=== PATIENT | female | born 1965 | race Caucasian/White ===

== ENCOUNTER 2017-05-16 22:44 | Inpatient (IN) | payer MEDICARE, OTHER, BC ==
[2017-05-17] MEDS: ACETAMINOPHEN 325 MG TAB PO ×2 (00:57→16:38)
[2017-05-17 00:58] LABS: AUTOMATED NEUTROPHIL # 12.5 TH/MM3 (1.8-7.7); BASOPHIL # 0.2 TH/MM3 (0-0.2); BASOPHIL % 0.8 % (0.0-2.0); EOSINOPHIL # 0.1 TH/MM3 (0-0.4); EOSINOPHIL % 0.4 % (0.0-4.0); HEMOGLOBIN 14.5 GM/DL (11.6-15.3); LYMPH % 30.1 % (9.0-44.0); LYMPHOCYTE # 6.3 TH/MM3 (1.0-4.8); MEAN CELL VOLUME 90.3 FL (80.0-100.0); MEAN CORPUSCULAR HEMOGLOBIN 29.8 PG (27.0-34.0); MEAN PLATELET VOLUME 8.6 FL (7.0-11.0); MONO % 9.1 % (0.0-8.0); MONOCYTE # 1.9 TH/MM3 (0-0.9); NEUT % 59.6 % (16.0-70.0); PLATELET COUNT 301 TH/MM3 (150-450); RED BLOOD COUNT 4.88 MIL/MM3 (4.00-5.30); RED CELL DISTRIBUTION WIDTH 14.5 % (11.6-17.2)
[2017-05-17 01:01] LABS: HEMO FLAGS AUTO DIFF
[2017-05-17 01:19] LABS: ALKALINE PHOSPHATASE 62 U/L (45-117); TOTAL BILIRUBIN ADULT 0.6 MG/DL (0.2-1.0)
[2017-05-17 01:26] LABS: BANDS 2 % (0-6); LYMPHOCYTES 27 % (9-44); MONOCYTES 8 % (0-8); NEUTROPHIL # MANUAL DIFF 13.7 TH/MM3 (1.8-7.7); POLYS (SEG NEUTROPHILS) 63 % (16-70); SCAN/DIFF FINAL DIFF MANUAL; WBC DIFF SAMPLE 100
[2017-05-17 01:28] LABS: PLATELET ESTIMATE SMEAR NORMAL (NORMAL); PLATELET MORPHOLOGY NORMAL (NORMAL)
[2017-05-17 02:57] LABS: ALBUMIN 4.3 GM/DL (3.4-5.0); ALT (GPT) 54 U/L (10-53); ANION GAP 12 MEQ/L (5-15); AST (GOT) 32 U/L (15-37); BICARBONATE 19.5 MEQ/L (21.0-32.0); BLOOD UREA NITROGEN 13 MG/DL (7-18); CALCIUM 10.1 MG/DL (8.5-10.1); CHLORIDE 110 MEQ/L (98-107); CREATININE 1.16 MG/DL (0.50-1.00); GLOMERULAR FILTRATION RATE 49 ML/MIN (>89); GLUCOSE,RANDOM 124 MG/DL (74-106); POTASSIUM 3.7 MEQ/L (3.5-5.1); SODIUM (NA) 141 MEQ/L (136-145)
[2017-05-17 02:58] LABS: ALCOHOL LESS THAN 3 MG/DL (0-5)
[2017-05-17 08:39] LABS: AUTOMATED NEUTROPHIL # 7.5 TH/MM3 (1.8-7.7); BASOPHIL # 0.1 TH/MM3 (0-0.2); BASOPHIL % 0.8 % (0.0-2.0); EOSINOPHIL # 0.1 TH/MM3 (0-0.4); EOSINOPHIL % 0.8 % (0.0-4.0); HEMOGLOBIN 14.3 GM/DL (11.6-15.3); LYMPH % 37.2 % (9.0-44.0); LYMPHOCYTE # 5.6 TH/MM3 (1.0-4.8); MEAN CELL VOLUME 90.4 FL (80.0-100.0); MEAN CORPUSCULAR HEMOGLOBIN 30.9 PG (27.0-34.0); MEAN CORPUSCULAR HGB CONC 34.2 % (32.0-36.0); MEAN PLATELET VOLUME 8.2 FL (7.0-11.0); MONOCYTE # 1.7 TH/MM3 (0-0.9); NEUT % 50.2 % (16.0-70.0); PLATELET COUNT 284 TH/MM3 (150-450); RED BLOOD COUNT 4.64 MIL/MM3 (4.00-5.30); RED CELL DISTRIBUTION WIDTH 14.3 % (11.6-17.2)
[2017-05-17 08:47] LABS: HEMO FLAGS AUTO DIFF
[2017-05-17 09:33] LABS: SCAN/DIFF AUTO DIFF CONFIRMED
[2017-05-17 13:05] LABS: BACTERIA, URINE RARE /hpf; BILIRUBIN, URINE NEG (NEG); BLOOD, URINE NEG (NEG); COMMENT (UR) CULT NOT INDICATED; CULTURE IF INDICATED CULT NOT INDICATED; GLUCOSE,URINE NEG (NEG); KETONE, URINE NEG (NEG); NITRITE,URINE NEG (NEG); SQUAMOUS EPITHELIAL CELL URINE 1 /hpf (0-5); URINE COLOR LIGHT-YELLOW (YELLW/STRAW); URINE LEUKOCYTE ESTERASE NEG (NEG)
[2017-05-17 13:09] LABS: AMPHETAMINE, URINE NEG (NEG); BARBITURATES, URINE NEG (NEG); BENZODIAZEPINE,URINE NEG (NEG); CANNABINOIDS, URINE NEG (NEG); COCAINE, URINE NEG (NEG)
[2017-05-17] MEDS ORDERED: MAGNESIUM HYDROXIDE SUSP 30 ML CUP PO (20:45)
[2017-05-17] MEDS: LORazepam 2 MG/ML VIAL IM (21:27)
[2017-05-18] MEDS: OLANZapine 10 MG TAB PO ×3 (09:47→15:33)
[2017-05-18] MEDS: ALUMINUM/MAGNESIUM/SIMETH 30 ML CUP PO (14:39)
[2017-05-18] MEDS: ZIPRASIDONE HCL 20 MG CAP PO ×2 (15:32→20:24)
[2017-05-18] MEDS: traZODone HCL 50 MG TAB PO (22:04)
[2017-05-19] MEDS: LORazepam 1 MG TAB PO (06:31)
[2017-05-19] MEDS: ZIPRASIDONE HCL 20 MG CAP PO ×2 (09:00→20:16)
[2017-05-19 09:21] LABS: HEMOGLOBIN A1C 6.6 % (4.3-6.0); HEMOGLOBIN A1a 1.2 %; HEMOGLOBIN A1b 1.4 %; HEMOGLOBIN F 1.1 %; HEMOGLOBIN LA1C 2.2 %; HEMOGLOBIN P3 5.4 %
[2017-05-19 10:39] LABS: HEMATOCRIT 39.6 % (35.0-46.0); MEAN CELL VOLUME 92.6 FL (80.0-100.0); MEAN CORPUSCULAR HEMOGLOBIN 30.3 PG (27.0-34.0); MEAN CORPUSCULAR HGB CONC 32.7 % (32.0-36.0); MEAN PLATELET VOLUME 8.7 FL (7.0-11.0); PLATELET COUNT 229 TH/MM3 (150-450); RED BLOOD COUNT 4.28 MIL/MM3 (4.00-5.30); RED CELL DISTRIBUTION WIDTH 14.9 % (11.6-17.2); REVIEW FLAG FINAL; WHITE BLOOD COUNT 10.6 TH/MM3 (4.0-11.0)
[2017-05-19] MEDS: traZODone HCL 50 MG TAB PO (21:51)
[2017-05-20] MEDS: RESP: ALBUTEROL 2.5 MG/IPRATROPIUM 0.5 MG NEB (SCH) NEB ×2 (08:00→09:45)
[2017-05-20] MEDS: LORazepam 1 MG TAB PO (08:30)
[2017-05-20] MEDS: ZIPRASIDONE HCL 20 MG CAP PO ×2 (09:03→20:07)
[2017-05-20] MEDS ORDERED: hydrOXYzine HCL 50 MG TAB PO (12:45)
[2017-05-20] MEDS ORDERED: RESP: ALBUTEROL 2.5 MG/IPRATROPIUM 0.5 MG NEB (PRN) NEB (13:45)
[2017-05-20] MEDS: ACETAMINOPHEN 325 MG TAB PO (15:42)
[2017-05-20] MEDS: traZODone HCL 50 MG TAB PO (20:07)
[2017-05-21] MEDS: ALUMINUM/MAGNESIUM/SIMETH 30 ML CUP PO (01:41)
[2017-05-21] MEDS: ACETAMINOPHEN 325 MG TAB PO (03:34)
[2017-05-21] MEDS: ZIPRASIDONE HCL 20 MG CAP PO ×2 (08:26→17:41)
[2017-05-21] MEDS ORDERED: BENZTROPINE MESYLATE 2 MG/2 ML VIAL IM (16:00)
[2017-05-21] MEDS ORDERED: BENZTROPINE MESYLATE 1 MG TAB PO (16:00)
[2017-05-21] MEDS: traZODone HCL 50 MG TAB PO (20:04)
[2017-05-22] MEDS: ALUMINUM/MAGNESIUM/SIMETH 30 ML CUP PO ×2 (04:31→23:09)
[2017-05-22] MEDS: ZIPRASIDONE HCL 20 MG CAP PO (08:40)
[2017-05-22] MEDS: ZIPRASIDONE HCL 60 MG CAP PO (18:15)
[2017-05-22] MEDS: hydrOXYzine HCL 50 MG TAB PO (20:37)
[2017-05-23] MEDS: ACETAMINOPHEN 325 MG TAB PO ×2 (00:32→06:39)
[2017-05-23] MEDS: LORazepam 1 MG TAB PO ×2 (02:53→20:06)
[2017-05-23] MEDS: metFORMIN HCL 500 MG TAB PO (08:02)
[2017-05-23] MEDS: ZIPRASIDONE HCL 60 MG CAP PO (08:03)
[2017-05-23 09:45] LABS: ALT (GPT) 62 U/L (10-53)
[2017-05-23 09:48] LABS: ALKALINE PHOSPHATASE 62 U/L (45-117); TOTAL BILIRUBIN ADULT 0.5 MG/DL (0.2-1.0); TOTAL PROTEIN 7.6 GM/DL (6.4-8.2)
[2017-05-23 09:57] LABS: ANION GAP 10 MEQ/L (5-15); AST (GOT) 43 U/L (15-37); BICARBONATE 18.7 MEQ/L (21.0-32.0); BLOOD UREA NITROGEN 11 MG/DL (7-18); CALCIUM 9.9 MG/DL (8.5-10.1); CHLORIDE 108 MEQ/L (98-107); CREATININE 0.94 MG/DL (0.50-1.00); GLOMERULAR FILTRATION RATE 63 ML/MIN (>89); GLUCOSE,RANDOM 141 MG/DL (74-106); POTASSIUM 4.2 MEQ/L (3.5-5.1); SODIUM (NA) 137 MEQ/L (136-145)
[2017-05-23] MEDS: ALUMINUM/MAGNESIUM/SIMETH 30 ML CUP PO (13:58)
[2017-05-23] MEDS ORDERED: ZIPRASIDONE MESYLATE 20 MG VIAL IM (14:45)
[2017-05-23] MEDS: ZIPRASIDONE HCL 80 MG CAP PO (17:48)
[2017-05-23] MEDS: ZOLPIDEM TARTRATE 5 MG TAB PO (20:06)
[2017-05-24] MEDS: ACETAMINOPHEN 325 MG TAB PO ×3 (06:25→20:37)
[2017-05-24] MEDS: metFORMIN HCL 500 MG TAB PO (07:31)
[2017-05-24] MEDS: ZIPRASIDONE HCL 80 MG CAP PO ×2 (07:31→17:22)
[2017-05-24] MEDS: ARTIFICIAL TEARS OPTH SOLN 15 ML BTL EACH EYE ×2 (07:32→19:49)
[2017-05-24 14:45] LABS: FREE T4 1.18 NG/DL (0.76-1.46)
[2017-05-24] MEDS ORDERED: ZIPRASIDONE HCL 80 MG CAP PO (18:00)
[2017-05-24] MEDS: LORazepam 1 MG TAB PO (20:37)
[2017-05-24] MEDS: hydrOXYzine HCL 50 MG TAB PO (20:37)
[2017-05-25] MEDS: ACETAMINOPHEN 325 MG TAB PO ×2 (02:34→23:54)
[2017-05-25] MEDS: ARTIFICIAL TEARS OPTH SOLN 15 ML BTL EACH EYE ×2 (03:50→10:00)
[2017-05-25] MEDS: ZIPRASIDONE HCL 80 MG CAP PO ×2 (07:57→17:00)
[2017-05-25] MEDS: metFORMIN HCL 500 MG TAB PO (07:58)
[2017-05-25] MEDS: ZIPRASIDONE HCL 20 MG CAP PO (16:59)
[2017-05-25] MEDS: LORazepam 1 MG TAB PO (20:11)
[2017-05-25] MEDS: ZOLPIDEM TARTRATE 5 MG TAB PO (20:12)
[2017-05-26] MEDS: ACETAMINOPHEN 325 MG TAB PO (05:36)
[2017-05-26] MEDS: ZIPRASIDONE HCL 20 MG CAP PO ×2 (09:34→18:08)
[2017-05-26] MEDS: ZIPRASIDONE HCL 80 MG CAP PO ×2 (09:34→18:08)
[2017-05-26] MEDS: hydrOXYzine HCL 50 MG TAB PO (09:35)
[2017-05-26] MEDS: metFORMIN HCL 500 MG TAB PO (09:35)
[2017-05-26] MEDS: ARTIFICIAL TEARS OPTH SOLN 15 ML BTL EACH EYE (18:08)
[2017-05-26] MEDS: ZOLPIDEM TARTRATE 5 MG TAB PO (21:28)
[2017-05-27] MEDS: ACETAMINOPHEN 325 MG TAB PO ×2 (00:10→20:17)
[2017-05-27] MEDS: LORazepam 1 MG TAB PO (01:36)
[2017-05-27] MEDS: metFORMIN HCL 500 MG TAB PO (08:00)
[2017-05-27] MEDS: ZIPRASIDONE HCL 20 MG CAP PO (08:00)
[2017-05-27] MEDS: ZIPRASIDONE HCL 80 MG CAP PO (08:00)
[2017-05-27] MEDS: ZIPRASIDONE HCL 60 MG CAP PO (17:23)
[2017-05-27] MEDS: ARTIFICIAL TEARS OPTH SOLN 15 ML BTL EACH EYE (20:16)
[2017-05-27] MEDS: ZOLPIDEM TARTRATE 10 MG TAB PO (20:17)
[2017-05-28] MEDS: ZIPRASIDONE HCL 60 MG CAP PO ×2 (08:07→17:02)
[2017-05-28] MEDS: metFORMIN HCL 500 MG TAB PO (08:07)
[2017-05-28] MEDS: ACETAMINOPHEN 325 MG TAB PO (08:08)
[2017-05-28] MEDS: ZOLPIDEM TARTRATE 10 MG TAB PO (21:15)
[2017-05-28] MEDS: ARTIFICIAL TEARS OPTH SOLN 15 ML BTL EACH EYE (21:16)
[2017-05-29] MEDS: ACETAMINOPHEN 325 MG TAB PO (03:29)
[2017-05-29] MEDS: metFORMIN HCL 500 MG TAB PO (09:09)
[2017-05-29] MEDS: ZIPRASIDONE HCL 60 MG CAP PO (09:10)
[2017-05-29] MEDS: ARTIFICIAL TEARS OPTH SOLN 15 ML BTL EACH EYE (09:14)
== END 2017-05-29 14:40 | disposition home or self-care (01) | DRG 885 ==
LOC: NEPD 22:44 → NEDA 05-17 20:35 → H270 05-17 22:06
DX: F20.0 Paranoid schizophrenia (principal); E11.9 Type 2 diabetes mellitus without complications; J44.9 Chronic obstructive pulmonary disease, unspecified; G47.00 Insomnia, unspecified; Z91.14 Patient's other noncompliance with medication regimen; Z86.19 Personal history of other infectious and parasitic diseases; Z72.0 Tobacco use
CPT/HCPCS: 71045; 80053; 80307; 81001; 83036; 84439; 84443; 85007; 85025; 85027; 93005; 99285

== ENCOUNTER 2017-06-01 14:50 | Inpatient (IN) | payer MEDICARE ==
[~2017-06-01] VITALS: Ht 167.6 cm; Wt 105.3 kg
[~2017-06-01 14:50] MED LIST: AMBI10TA PO; GEOD60CA PO; METF500 PO
[2017-06-01 15:05] VITALS: BP 133/64; TEMP 98.8
--- NOTE | 2017-06-01 15:31 | PD ---
HPI Chief Complaint: Psychiatric Symptoms Time Seen by Provider: 15:11 Travel History International Travel<30 days: No Contact w/Intl Traveler<30days: No Traveled to known affect area: No History of Present Illness HPI 51-year-old female presents to the emergency department with her brother for psychiatric evaluation. Patient was recently admitted to the hospital. She has a history of schizophrenia. She was discharged prescription for Geodon. According to her brother, she is not doing well. The patient appears psychotic to my exam. She will not allow anyone to touch her and declines labs. She is alert and oriented to person, place, time. However, she asked bizarre during my exam. Her brother is concerned for her. Moderate severity. PFSH Past Medical History Autoimmune Disease: No Cancer: No Diabetes: No Diminished Hearing: No Gastrointestinal Disorders: Yes (HEP C) Heparin Induced Thrombocytopen: No Immune Disorder: No Implanted Vascular Access Dvce: No Psychiatric: Yes Reproductive: No Immunizations Current: No Sickle Cell Disease: No Thyroid Disease: No ?: Not Past Surgical History AICD: No Arteriovenous Shunt: No Insulin Pump: No Joint Replacement: No Pacemaker: No Social History Alcohol Use: Yes Tobacco Use: Yes Substance Use: No Allergies-Medications (Allergen,Severity, Reaction): Coded Allergies: No Known Allergies (Unverified , 05/17/17) Reported Meds & Prescriptions Reported Meds & Active Scripts Active Glucophage (Metformin HCl) 500 Mg Tab 500 Mg PO DAILY 15 Days Ambien (Zolpidem Tartrate) 10 Mg Tab 10 Mg PO HS PRN 15 Days Geodon (Ziprasidone) 60 Mg Cap 120 Mg PO BIDPC 15 Days Review of Systems Except as stated in HPI: all other systems reviewed are Neg Physical Exam Narrative GENERAL: Well-nourished, well-developed female patient, ambulatory. Afebrile. SKIN: Focused skin assessment warm/dry. HEAD: Normocephalic. Atraumatic EYES: No scleral icterus. No injection or drainage. NECK: Supple, trachea midline. No JVD or lymphadenopathy. CARDIOVASCULAR: Regular rate and rhythm without murmurs, gallops, or rubs. RESPIRATORY: Breath sounds equal bilaterally. No accessory muscle use. Lungs sounds are clear to auscultation. GASTROINTESTINAL: Patient refuses to allow me assess her abdomen.. MUSCULOSKELETAL: No cyanosis, or edema. PSYCHIATRIC: Patient acts bizarre and psychotic. Data Data Last Documented VS Vital Signs Date Time Temp Pulse Resp B/P (MAP) Pulse Ox O2 Delivery O2 Flow Rate FiO2 06/01/17 15:05 98.8 133/64 (87) Orders Orders Psych Screen (06/01/17 15:24) MDM Medical Decision Making Medical Screen Exam Complete: Yes Emergency Medical Condition: Yes Medical Record Reviewed: Yes Differential Diagnosis schizophrenia vs. bipolar d/o vs. anxiety vs. depression Narrative Course 51 year old female presents to the emergency department for psychiatric evaluation. Patient declines labs. I reviewed the most recent labs from . CBC showed no acute abnormality. CMP on 05/23/17 showed slightly elevated LFTs. Patient is medically cleared for psychiatric screening and evaluation. Diagnosis Primary Impression: Schizophrenia Qualified Codes: F20.9 - Schizophrenia, unspecified Condition: Stable BretJenny TESSA Jun 01, 2017 15:31
[2017-06-01 20:29] VITALS: BP 130/75; PULSE 89; RESP 16; TEMP 98.1; O2SAT 95
[2017-06-02] MEDS ORDERED: metFORMIN HCL 500 MG TAB PO ONE (07:30)
[2017-06-02] MEDS ORDERED: ZIPRASIDONE HCL 60 MG CAP PO ONE (07:30)
--- NOTE | 2017-06-02 10:48 | PD ---
History of Present Illness Chief Complaint: Psychiatric Symptoms Time Seen by Provider: 10:30 Travel History International Travel<30 Days: No Contact w/Intl Traveler<30days: No Known affected area: No Legal Status Legal Status: Salas Act Salas Act Signed By: Ana ZARATE History of Present Illness: History of Present Illness HPI 51-year-old female with history of schizoaffective disorder who presents to the emergency department accompanied by her brother for psychiatric evaluation. The brother reports that since her discharge from our inpatient psychiatric unit on May 29 she has been unstable at home with not sleeping, restless, delusional and combative. Patient was discharged from our inpatient psychiatric unit on May 29 to the care of her brother and her mother. While in the ED the patient is described as appearing psychotic as well as paranoid and did not allow anyone to touch her or to draw her labs. The patient was monitored in J pod. She was up at 3:00 in the morning and asked her nursing report appeared paranoid and was argumentative with staff claiming that the objects inside the nurse's station belonged to her. Patient is seen. Electronic medical record reviewed. Nursing reported is reviewed. The patient is alert, oriented. She demonstrates disorganized thoughts. She states that her problems began when she got off the Clozapine. She then begins to talk about the doors here on the unit, people coming in and out of the unit, feeling sweaty, talking about her metformin. She is intrusive and approaches staff constantly to ask about her discharge from [facility]. I spoke to both the brother and the mother at [phone]. The brother reports that since her discharge they have been unable to manage her behavior at home because she has not been sleeping well, she has been combative, she has been delusional as per their report. The patient's mother and her brother at this time believe that they are unable to manage her behaviors at home and are requesting hospitalization. They are unwilling to pick her up from the hospital at this time. PFSH Past Medical History Autoimmune Disease: No Cancer: No Diabetes: No Diminished Hearing: No Gastrointestinal Disorders: Yes (HEP C) Heparin Induced Thrombocytopen: No Immune Disorder: No Implanted Vascular Access Dvce: No Psychiatric: Yes Reproductive: No Immunizations Current: No Sickle Cell Disease: No Thyroid Disease: No ?: Not Past Surgical History AICD: No Arteriovenous Shunt: No Insulin Pump: No Joint Replacement: No Pacemaker: No Psychiatric History Psychiatric History Hx Psychiatric Treatment: PATIENT WAS LAST ADMITTED TO [facility] FROM 05/17/17 TO 05/29/17 FOR PSYCHOSIS NOS. HX: SCHIZOPHRENIA has had previous admissions here to [facility] History of Inpatient Treatment: Yes Guns or firearms in home: No Social History Single female who lives with her mother and her brother. She is on disability. Hx Alcohol Use: Yes Hx Tobacco Use: Yes Hx Substance Use: No Hx of Substance Use Treatment: No Allergies-Medications (Allergen,Severity, Reaction): Coded Allergies: No Known Allergies (Unverified , 05/17/17) Reported Meds & Prescriptions Reported Meds & Active Scripts Active Glucophage (Metformin HCl) 500 Mg Tab 500 Mg PO DAILY 15 Days Ambien (Zolpidem Tartrate) 10 Mg Tab 10 Mg PO HS PRN 15 Days Geodon (Ziprasidone) 60 Mg Cap 120 Mg PO BIDPC 15 Days Review of Systems ROS Limitations: Uncooperative Mental Status Examination Appearance: Appropriate Consciousness: Alert Orientation: Person, Place, Situation Motor Activity: Normal gait Speech: Other (perseverates on same subject matter) Language: Adequate Fund of Knowledge: Adequate Attention and Concentration: Easily Distracted Memory: Impaired Mood: Anxious, Other (labile) Affect: Labile Thought Process & Associations: Loose associations Thought Content: Other (suspicious of staff) Hallucination Type: None Delusion Type: Paranoid Suicidal Ideation: No Suicidal Plan: No Suicidal Intention: No Homicidal Ideation: No Homicidal Plan: No Homicidal Intention: No Insight: Poor Judgment: Poor MDM Medical Decision Making Medical Record Reviewed: Yes Assessment/Plan 51-year-old female with history of schizoaffective disorder who initially presented to the hospital on a voluntary basis brought in by her brother. The family reported that since her discharge from our inpatient psychiatric unit on May 29 she has been unstable mentally, has not been sleeping, has been delusional, and has been combative. The family at this time is unwilling to take the patient home as they feel that she is not stable. The case is consulted with Dr. Ervin and no who recommends inpatient hospitalization for further evaluation, stability, medication adjustment. Patient statuses changed to involuntary. Orders Orders Psych Screen (06/01/17 15:24) Diet Regular Basic (06/02/17 Breakfast) Metformin (Glucophage) (06/02/17 07:30) Ziprasidone (Geodon) (06/02/17 07:30) Diet Regular Basic (06/02/17 Lunch) Results Vital Signs Date Time Temp Pulse Resp B/P (MAP) Pulse Ox O2 Delivery O2 Flow Rate FiO2 06/01/17 20:29 98.1 89 16 130/75 (93) 95 Room Air 06/01/17 15:05 98.8 133/64 (87) Diagnosis Primary Impression: Other schizoaffective disorders Admitting Information Admitting Physician Requests: Admit Condition: Stable NewmanCatia can Vlad ZARATE Jun 02, 2017 10:48
[2017-06-02] MEDS ORDERED: ALUMINUM/MAGNESIUM/SIMETH 30 ML CUP PO PRN (13:30)
[2017-06-02] MEDS ORDERED: MAGNESIUM HYDROXIDE SUSP 30 ML CUP PO PRN (13:30)
[2017-06-02 15:36] VITALS: BP 120/61; PULSE 75; RESP 18; O2SAT 93
[2017-06-02 17:01] VITALS: TEMP 97.3
[2017-06-02 17:02] VITALS: BP 115/77; PULSE 82; RESP 18; TEMP 97.3; O2SAT 98
[2017-06-02] MEDS: ZIPRASIDONE HCL 60 MG CAP PO SCH (18:00)
[2017-06-03] MEDS: ACETAMINOPHEN 325 MG TAB PO PRN (00:02)
[2017-06-03 05:54] VITALS: BP 126/77; PULSE 76; RESP 17; TEMP 97.8; O2SAT 98
[2017-06-03] MEDS: ZIPRASIDONE HCL 60 MG CAP PO SCH ×2 (08:10→17:51)
[2017-06-03] MEDS: metFORMIN HCL 500 MG TAB PO SCH (09:00)
--- NOTE | 2017-06-03 14:13 | HHI.HP ---
Provisional Diagnosis Admission Date Jun 02, 2017 at 13:22 [place] I. 1. Other schizoaffective disorder [place] II. Deferred Certification of Person's Competence To Provide Express and Informed Consent I have personally examined Shanique Gar , a person being served at [facility] on, Jun 03, 2017 14:13. Express and informed consent means consent voluntarily given in writing, by a competent person, after sufficient explanation and disclosure of the subject matter involved to enable the person to make a knowing and willful decision without any element of force, fraud, deceit, duress, or other form of constraint or coercion. This person is 18 years of age or older, is not now known to be incompetent to consent to treatment with a guardian advocate, and does not have a health care surrogate or proxy currently making medical treatment decisions. I have found this person to be one of the following: [x] Competent to provide express and informed consent, as defined above, for voluntary admission to this facility and is competent to provide express and informed consent for treatment. He/she has the consistent capacity to make well reasoned, willful, and knowing decisions concerning his or her medical or mental health treatment. The person fully and consistently understands the purpose of the admission for examination/placement and is fully capable of personally exercising all rights [place] Incompetent to provide express and informed consent to voluntary admission, and this is incompetent to provide express and informed consent to treatment. The person must be transferred to involuntary status and a petition for a guardian advocate filed with the Circuit Court. [] Refusing to provide express and informed consent to voluntary admission but is competent to provide express and informed consent for treatment. The person must be discharged or transferred to involuntary status. Form shall be completed within 24 hours of a person's arrival at the receiving facility and filed in the clinical record of each person: 1. Admitted on a voluntary basis 2. Permitted to provide express and informed consent to his/her own treatment 3. Allowed to transfer from involuntary to voluntary status 4. Prior to permitting a person to consent to his or her own treatment after having been previously found incompetent to consent to treatment. History of Present Illness Capacity: Has Capacity Psych Chief Complaint: "Me and my mom weren't getting along." HPI Ms. Gar is a 51-year-old female with a history of schizoaffective disorder, recently discharged from the inpatient psychiatric unit back to home. She was brought back to the emergency department on the for psychiatric evaluation. She was screened by the psychiatric nurse practitioner who obtained collateral information from patient's brother and mother. Electronic medical record reviewed. Patient seen and examined with nurse. Chart reviewed. Case discussed with nursing staff who reports patient has been somewhat oppositional and hostile toward nurse, although she has not been physically aggressive or assaultive. On my exam, patient is calm with a slightly irritable edge. She tells me "I'm completely normal." She says that she got into an argument with her mother upon returning home. She denies AVH. She denies SI or HI. Mood is somewhat dysphoric. No other depressive or hypomanic/manic symptoms. She does admit to poor sleep prior to admission. She does display some hostility toward nurse during our interview but keeps her behavior in check. No side effects from Geodon. No reported issues with medication nonadherence prior to admission. No physical complaints. Past psychiatric, family, chemical dependency and social history were obtained by Dr. Ribera in his H&P from 05/18, and I refer the reader also to my note from 05/21. These data are not much changed today, except that patient does note that she followed up at [facility] following discharge from hospital. Review of Systems ROS Limitations: Poor Historian Except as stated in HPI: all other systems reviewed are Neg Past Psych History Psychological trauma history No reported trauma history to me. Violence risk - others (6 mos) Denies HI. No evidence of violence on unit. Violence risk - self (6 mos) Denies SI. No evidence of suicidality on unit. Substance Abuse History Drugs/Alcohol past 12 months See above Past Family Social History Coded Allergies: No Known Allergies (Unverified , 05/17/17) Past Medical History See EMR Active Scripts Metformin (Glucophage) 500 Mg Tab, 500 MG PO DAILY for Blood Sugar Management for 15 Days, #15 TAB 1 Refill Prov:Terry Justin MD 05/29/17 Zolpidem (Ambien) 10 Mg Tab, 10 MG PO HS Y for INSOMNIA for 15 Days, TAB 1 Refill Prov:Terry Justin MD 05/29/17 Ziprasidone (Geodon) 60 Mg Cap, 120 MG PO BIDPC for Mental Health for 15 Days, CAP 1 Refill Prov:Terry Justin MD 05/29/17 Discontinued Reported Medications Olanzapine (Zyprexa) 10 Mg Tab, 10 MG PO DAILY, #30 TAB 0 Refills 05/17/17 Current Medications Medications (Trade) Dose Ordered Sig/William Route Start Time Stop Time Status Last Admin (Tylenol) 650 mg Q4H PRN PO 06/02/17 13:30 06/03/17 00:02 (Milk Of Magnesia Liq) 30 ml DAILY PRN PO 06/02/17 13:30 (Mag-Al Plus Susp Liq) 30 ml Q6H PRN PO 06/02/17 13:30 (Glucophage) 500 mg DAILY PO 06/03/17 09:00 06/03/17 09:00 (Geodon) 120 mg BIDPC PO 06/02/17 18:00 Family Psych History See above Social History Lives with family. See above. Patient's Strengths (min. 2) In a monitored setting. Verbally fluent. Physical Exam Physical exam completed by ED provider. On my examination today, the patient appears to be in no acute physical distress. No motor abnormalities noted. Labs and vitals reviewed: Vital Signs Vital Signs Date Time Temp Pulse Resp B/P (MAP) Pulse Ox O2 Delivery O2 Flow Rate FiO2 06/03/17 05:54 97.8 76 17 126/77 (93) 98 06/02/17 15:36 Room Air Lab Results Labs were obtained during patient's recent hospitalization earlier this month. Patient reportedly refused laboratories in the ED. Mental Status Examination Appearance: Appropriate Consciousness: Alert Orientation: x4 Motor Activity: Normal gait, Other (no abnormal motor movements noted) Speech: Unremarkable Language: Adequate Fund of Knowledge: Adequate Attention and Concentration: Easily Distracted Mood: Other (somewhat dysphoric) Affect: Other (restricted) Thought Process & Associations: Tangential Thought Content: Preoccupations Hallucination Type: None Delusion Type: Other (guarded and suspicious) Suicidal Ideation: No Suicidal Plan: No Suicidal Intention: No Homicidal Ideation: No Homicidal Plan: No Homicidal Intention: No Insight: Fair Judgment: Impulsive Assessment & Plan Problem List: (1) Other schizoaffective disorders ICD Codes: F25.8 - Other schizoaffective disorders Assessment & Plan 51-year-old female recently discharged from the inpatient psychiatric unit readmitted to the inpatient psychiatric unit after presenting to the ED for psychiatric evaluation. On my examination today, the patient presents as somewhat dysphoric and guarded. She complains of poor sleep. I have had a discussion with patient regarding pharmacotherapeutic options for management of these issues, but patient wishes to continue with Geodon alone for now. I will plan to admit the patient to the inpatient psychiatric unit for observation. Admit inpatient. Voluntary status. Continue Geodon 120 mg twice daily with meals. I have obtained consent for this medication from the patient. Patient declines any further pharmacotherapy directed at psychiatric symptoms at this time. Cogentin as needed for EPS. Vitals every shift. Counselor to see and obtain further collateral. Disposition planning. Estimated length of stay: 3- 5 days. Discharge Planning Pending outcome of observation. Case discussed with counselor. Request HC Surrog/Guard Advoc?: No Terry Justin MD Jun 03, 2017 14:13
[2017-06-03] MEDS ORDERED: BENZTROPINE MESYLATE 1 MG TAB PO PRN (14:15)
[2017-06-03] MEDS ORDERED: BENZTROPINE MESYLATE 2 MG/2 ML VIAL IM PRN (14:15)
[2017-06-03 17:01] VITALS: BP 108/50; PULSE 66; RESP 16; TEMP 97; O2SAT 96
[2017-06-04 05:39] VITALS: BP 111/65; PULSE 87; RESP 18; TEMP 97.1; O2SAT 96
[2017-06-04 07:48] LABS: BICARBONATE 22.5 MEQ/L (21.0-32.0); BLOOD UREA NITROGEN 9 MG/DL (7-18); CALCIUM 9.4 MG/DL (8.5-10.1); CHLORIDE 111 MEQ/L (98-107); CHOLESTEROL 142 MG/DL (120-200); CREATININE 0.74 MG/DL (0.50-1.00); GLOMERULAR FILTRATION RATE 82 ML/MIN (>89); GLUCOSE,RANDOM 83 MG/DL (74-106); SODIUM (NA) 144 MEQ/L (136-145)
[2017-06-04 07:51] LABS: CHOLESTEROL/ HDL RATIO 3.76 RATIO; HDL CHOLESTEROL 37.7 MG/DL (40.0-60.0); LDL CHOLESTEROL 76 MG/DL (0-99); TRIGLYCERIDES 143 MG/DL (42-150)
[2017-06-04] MEDS: ZIPRASIDONE HCL 60 MG CAP PO SCH ×2 (09:00→18:00)
[2017-06-04] MEDS: metFORMIN HCL 500 MG TAB PO SCH (09:00)
--- NOTE | 2017-06-04 09:56 | HHI.PYPN ---
Subjective Chief Complaint: "Me and my mom weren't getting along." Remarks Patient seen and examined with nurse. Chart reviewed. The patient has completed a right of release. Case discussed with nursing staff. Patient has been compliant with medications. She is noted to be somewhat demanding and expects immediate gratification. Case discussed in treatment team. On my examination today, the patient presents as somewhat oppositional but calm. She denies any suicidal or homicidal ideation. She denies any audiovisual hallucinations. She denies side effects from medications. She continues to refuse any medication adjustment. She complains of lower extremity swelling but otherwise has no physical complaints. Review of Systems ROS Limitations: Poor Historian Except as stated in HPI: all other systems reviewed are Neg Mental Status Examination Appearance: Appropriate Consciousness: Alert Orientation: x4 Motor Activity: Normal gait, Other (no motor abnormalities noted) Speech: Unremarkable Language: Adequate Fund of Knowledge: Adequate Attention and Concentration: Easily Distracted Mood: Other (remains a little bit dysphoric and oppositional) Affect: Blunt Thought Process & Associations: Circumstantial Thought Content: Other (fairly appropriate overall) Hallucination Type: None Delusion Type: Other (some residual guardedness) Suicidal Ideation: No Suicidal Plan: No Suicidal Intention: No Homicidal Ideation: No Homicidal Plan: No Homicidal Intention: No Insight: Fair Judgment: Impulsive Mental Status Exam Remarks R>L LE pitting edema noted. No tenderness to palpation. No palpable cord. Negative Fantasma's R. Results Labs Test 06/04/17 05:51 Blood Urea Nitrogen 9 MG/DL Creatinine 0.74 MG/DL Random Glucose 83 MG/DL Calcium Level 9.4 MG/DL Sodium Level 144 MEQ/L Potassium Level 4.1 MEQ/L Chloride Level 111 MEQ/L Carbon Dioxide Level 22.5 MEQ/L Anion Gap 11 MEQ/L Estimat Glomerular Filtration Rate 82 ML/MIN Triglycerides Level 143 MG/DL Cholesterol Level 142 MG/DL LDL Cholesterol 76 MG/DL HDL Cholesterol 37.7 MG/DL Cholesterol/HDL Ratio 3.76 RATIO Labs reviewed. GFR is improved relative to last assessment. Vitals/IOs Vital Signs Date Time Temp Pulse Resp B/P (MAP) Pulse Ox O2 Delivery O2 Flow Rate FiO2 06/04/17 05:39 97.1 87 18 111/65 (80) 96 06/02/17 15:36 Room Air Assessment & Plan Problem List: (1) Other schizoaffective disorders ICD Codes: F25.8 - Other schizoaffective disorders Assessment & Plan Continue Geodon 120mg BID as ordered. Check LE doppler RLE to assess for possible DVT. Consult hospitalist for LE edema. Continue to monitor on inpatient unit. Continue other meds and care as ordered. Patient agreed to rescind right of release prior to expiration of ROR. Justification for Cont. Inpt. Risk for decompensation in less restrictive environment. Discharge Planning Counselor to reach out the patient's family to assess their willingness to have the patient return home. Possible discharge home later this week. Request HC Surrog/Guard Advoc?: No Terry Justin MD Jun 04, 2017 09:56
--- NOTE | 2017-06-04 10:21 | PD.TTN ---
Patient Problems 1. Discharge planning 2. Medication compliance 3. Knowledge deficit 4. Lack of coping skills Progress Toward Goals Provider Present: Dr. Christine Justin Provider Input: Dr. Justin's treatment team met to discuss patient's treatment plan, medication and discharge plan. Patient is verbally aggressive towards others. Patient is medication compliant. Nurse(s) Input: Patient is cooperative today. Has been no behaviorial problem on unit today. Psychiatric Counselors Present: MEGAN QuilesErika Psych Therapist Input: Patient was seen in the dayroom interacting with other patients. Patient was pleasant, cooperative but guarded, good eye contact. Patient's speech was clear and pressured. Patient denied internal stimulation and any delusional content. Patient reports sleeping and eating well. Patient denies suicidal and homicidal ideation. Group Spec/RT/OT/CACERES Present: JAMIE Hawkins Group Spec/RT/OT/CACERES Input: Patient attends select group activities but needs redirection due to her verbal alteracations with staff and peers. Kristal Holman [facility] Jun 04, 2017 10:21
[2017-06-04 16:47] LABS: HEMOGLOBIN A1C 6.2 % (4.3-6.0)
--- NOTE | 2017-06-04 17:42 | PD.CONS ---
HPI Service [facility] Consult Requested By Dr. Justin Reason for Consult Rash vs. infection of right foot Primary Care Physician Kat Villanueva DO Diagnoses: History of Present Illness 51F with h/o Schizoaffective disorder and Hep C admitted to psych for mental imbalance when a rash was noted on her right foot. She denies that the rash is tender or associated with swelling. She denies fevers. Denies history of cellulitis in that foot. Denies history of significant trauma in that foot. Review of Systems Constitutional: DENIES: Fever Eyes: DENIES: Eye pain, Vision loss Respiratory: DENIES: Cough, Wheezing Cardiovascular: DENIES: Chest pain Genitourinary: DENIES: Urinary frequency, Urinary incontinence Integumentary: COMPLAINS OF: Rash, DENIES: Nail changes Hematologic/lymphatic: DENIES: Lymphadenopathy Neurologic: DENIES: Abnormal gait Psychiatric: COMPLAINS OF: Delusions Past Family Social History Allergies: Coded Allergies: No Known Allergies (Unverified , 05/17/17) Past Medical History Type 2 Diabetes, Schizoaffective disorder Past Surgical History none known Family History Type 2 diabetes Social History Denies smoking or drinking alcohol Physical Exam Vital Signs Vital Signs Date Time Temp Pulse Resp B/P (MAP) Pulse Ox O2 Delivery O2 Flow Rate FiO2 06/04/17 05:39 97.1 87 18 111/65 (80) 96 Physical Exam GENERAL: Obese, apprehensive about touch SKIN: Warm and dry, two dry flaky spots on right foot, 0.6cm circular rash on 1st MP bunion, 1.5cm circular rash with flakey border in right arch HEAD: Normocephalic. EYES: No scleral icterus. No injection or drainage. NECK: Supple, trachea midline. No JVD or lymphadenopathy. CARDIOVASCULAR: Regular rate and rhythm without murmurs, gallops, or rubs. RESPIRATORY: Breath sounds equal bilaterally. No accessory muscle use. GASTROINTESTINAL: Abdomen soft, non-tender, nondistended. EXTREMITIES: No cyanosis, or edema. NEUROLOGICAL: Awake, alert, and oriented x 3. Non-focal. Laboratory Laboratory Tests Test 06/04/17 05:51 Blood Urea Nitrogen 9 Creatinine 0.74 Random Glucose 83 Calcium Level 9.4 Sodium Level 144 Potassium Level 4.1 Chloride Level 111 Carbon Dioxide Level 22.5 Anion Gap 11 Estimat Glomerular Filtration Rate 82 Triglycerides Level 143 Cholesterol Level 142 LDL Cholesterol 76 HDL Cholesterol 37.7 Cholesterol/HDL Ratio 3.76 Result Diagram: 06/04/17 0551 Assessment and Plan Assessment and Plan Tinea Pedis Fungal infection of the foot Recommend topical antifungal medication (written) Takes about 2 weeks to clear up. Type 2 Diabetes Continue Metformin at home doses Diabetic Diet Schizoaffective disorder Admission to psych Under care of psychiatrist Disposition Cream should be sufficient treatment, please re-consult if any worsening occurs. Signing off from a medical standpoint at this time. Kai Garay MD Jun 04, 2017 17:42
[2017-06-04 17:45] VITALS: BP 108/64; PULSE 62; RESP 17; TEMP 97.1; O2SAT 97
[2017-06-04] MEDS: CLOTRIMAZOLE 1% CREAM 15 GM TOPICAL SCH (21:45)
[2017-06-05] MEDS: ACETAMINOPHEN 325 MG TAB PO PRN ×2 (01:09→22:00)
[2017-06-05 05:36] VITALS: BP 105/52; PULSE 73; RESP 20; TEMP 97.1; O2SAT 96
[2017-06-05] MEDS: CLOTRIMAZOLE 1% CREAM 15 GM TOPICAL SCH ×2 (08:20→20:15)
[2017-06-05] MEDS: metFORMIN HCL 500 MG TAB PO SCH (08:20)
[2017-06-05] MEDS: ZIPRASIDONE HCL 60 MG CAP PO SCH ×2 (08:20→18:00)
--- NOTE | 2017-06-05 12:28 | HHI.PYPN ---
Subjective Chief Complaint: "Me and my mom weren't getting along." Remarks Patient seen and examined with nurse. Chart reviewed. Case discussed with nursing staff. Patient reportedly refused lower extremity Doppler. She was no real behavioral problem on the unit overnight. On my examination today, the patient presents as somewhat oppositional with a somewhat silly affect. She reports that the pain in her leg has decreased. I have recommended that she allow us to pursue the lower extremity Doppler, but she declines once again. She denies any SI or HI. She denies any AVH. She is declining medication adjustment. She is requesting discharge soon. No new physical complaints. Review of Systems ROS Limitations: Poor Historian Except as stated in HPI: all other systems reviewed are Neg Mental Status Examination Appearance: Appropriate Consciousness: Alert Orientation: x4 Motor Activity: Normal gait, Other (no motor abnormalities noted) Speech: Unremarkable Language: Adequate Fund of Knowledge: Adequate Attention and Concentration: Easily Distracted Mood: Oppositional Affect: Other (somewhat silly) Thought Process & Associations: Circumstantial Thought Content: Other (generally appropriate, some bizarre ideation at times) Hallucination Type: None Delusion Type: None Suicidal Ideation: No Suicidal Plan: No Suicidal Intention: No Homicidal Ideation: No Homicidal Plan: No Homicidal Intention: No Insight: Fair (at best) Judgment: Impulsive Results Labs Labs reviewed. Vitals/IOs Vital Signs Date Time Temp Pulse Resp B/P (MAP) Pulse Ox O2 Delivery O2 Flow Rate FiO2 06/05/17 05:36 97.1 73 20 105/52 (69) 96 06/02/17 15:36 Room Air Assessment & Plan Problem List: (1) Other schizoaffective disorders ICD Codes: F25.8 - Other schizoaffective disorders Assessment & Plan Patient continues to refuse medication adjustment. Patient does seem to be slowly improving with ongoing Geodon treatment, although there may be some degree of underlying personality disorder that is fueling her oppositionality, although this is not at present unmanageable. Hospitalist input noted and appreciated. Continue to monitor on inpatient unit. Continue other meds and care as ordered. Justification for Cont. Inpt. Risk for decompensation in less restrictive environment Discharge Planning Patient is refusing med changes. So long as safe discharge plan is in place, possible discharge home tomorrow. Request HC Surrog/Guard Advoc?: No Terry Justin MD Jun 05, 2017 12:28
[2017-06-05 17:09] VITALS: BP 132/77; PULSE 98; RESP 18; TEMP 98; O2SAT 98
[2017-06-06 05:44] VITALS: BP 122/64; PULSE 79; RESP 18; TEMP 97; O2SAT 97
[2017-06-06] MEDS: ZIPRASIDONE HCL 60 MG CAP PO SCH ×2 (09:07→18:00)
[2017-06-06] MEDS: CLOTRIMAZOLE 1% CREAM 15 GM TOPICAL SCH ×2 (09:07→20:28)
[2017-06-06] MEDS: metFORMIN HCL 500 MG TAB PO SCH (09:07)
[2017-06-06] MEDS ORDERED: CLOT1CRE8 TOPICAL (09:55)
--- NOTE | 2017-06-06 09:55 | HHI.DS ---
Psychiatry Discharge Summary Advance Directive: No Reason Not Provided: Due to Patient Condition Mental Health AdvanceDirective: No Admission Admission Date Jun 02, 2017 at 13:22 Admission Diagnosis: Brief History Ms. Gar is a 51-year-old female with a history of schizoaffective disorder, recently discharged from the inpatient psychiatric unit back to home. She was brought back to the emergency department on the for psychiatric evaluation. She was screened by the psychiatric nurse practitioner who obtained collateral information from patient's brother and mother. Electronic medical record reviewed. Patient seen and examined with nurse. Chart reviewed. Case discussed with nursing staff who reports patient has been somewhat oppositional and hostile toward nurse, although she has not been physically aggressive or assaultive. On my exam, patient is calm with a slightly irritable edge. She tells me "I'm completely normal." She says that she got into an argument with her mother upon returning home. She denies AVH. She denies SI or HI. Mood is somewhat dysphoric. No other depressive or hypomanic/manic symptoms. She does admit to poor sleep prior to admission. She does display some hostility toward nurse during our interview but keeps her behavior in check. No side effects from Geodon. No reported issues with medication nonadherence prior to admission. No physical complaints. Past psychiatric, family, chemical dependency and social history were obtained by Dr. Ribera in his H&P from 05/18, and I refer the reader also to my note from 05/21. These data are not much changed today, except that patient does note that she followed up at [facility] following discharge from hospital. Tobacco Use In Past 30 Days: No Tobacco Past 30 Days Alcohol Use: Never Results Blood Pressure 122 / 64 Vital Signs Date Time Temp Pulse Resp B/P (MAP) Pulse Ox O2 Delivery O2 Flow Rate FiO2 06/06/17 05:44 97.0 79 18 122/64 (83) 97 06/02/17 15:36 Room Air Laboratory Tests Test 06/04/17 05:51 Chloride Level 111 MEQ/L (98-107) Estimat Glomerular Filtration Rate 82 ML/MIN (>89) Hemoglobin A1c 6.2 % (4.3-6.0) HDL Cholesterol 37.7 MG/DL (40.0-60.0) Laboratory Results Test 06/04/17 05:51 Cholesterol Level 142 MG/DL (120-200) HDL Cholesterol 37.7 MG/DL (40.0-60.0) Hemoglobin A1c 6.2 % (4.3-6.0) LDL Cholesterol 76 MG/DL (0-99) Triglycerides Level 143 MG/DL (42-150) Medications Approp Antipsych med options 1 - Minimum of three failed multiple trials of monotherapy. 2 - Documented plan to taper to monotherapy due to previous use of multiple meds OR cross-taper in progress at D/C. 3 - Documentation of augmentation of Clozapine. 4 - Justification other than those listed in allowable values 1-3, document here : Discharge Pt Condition on Discharge: Guarded Discharge Instructions Diet Instructions: Diabetic Diet Mental Status Examination Appearance: Appropriate Consciousness: Alert Orientation: x4 Motor Activity: Normal gait, Other (no motor abnormalities noted) Speech: Unremarkable Language: Adequate Fund of Knowledge: Adequate Attention and Concentration: Easily Distracted Mood: Oppositional Affect: Other (somewhat silly) Thought Process & Associations: Circumstantial Thought Content: Other (generally appropriate, some bizarre ideation at times) Hallucination Type: None Delusion Type: None Suicidal Ideation: No Suicidal Plan: No Suicidal Intention: No Homicidal Ideation: No Homicidal Plan: No Homicidal Intention: No Insight: Fair (at best) Judgment: Impulsive Discharge/Advance Care Plan Health Problems: (1) Other schizoaffective disorders Goals to promote your health * To prevent worsening of your condition and complications * To maintain your health at the optimal level Directions to meet your goals Take your medications as prescribed Follow your dietary instruction Follow activity as directed Keep your appointments as scheduled Take your immunizations and boosters as scheduled If your symptoms worsen call your PCP, if no PCP go to Urgent Care Center or Emergency Room For 24/7 questions related to your inpatient stay or results of tests pending at discharge, please contact Dr. Terry Justin at Smoking is Dangerous to Your Health. Avoid second hand smoking Terry Justin MD Jun 06, 2017 09:55
--- NOTE | 2017-06-06 14:51 | HHI.PYPN ---
Subjective Chief Complaint: "Me and my mom weren't getting along." Remarks Patient seen and examined with nurse. Chart reviewed. Case discussed with nursing staff. On my exam, patient is initially requesting discharge. She says that she feels "100% calmer" with the benefit of further Geodon therapy. She denies any SI/HI. Denies any AVH. She remains a little irritable with some mild affective lability. No paranoia evident today. She denies side effects from medications. She has no physical complaints and says that foot/ leg pain is resolved. I was prepared to discharge the patient AMA today since she has been refusing some care (e.g. LE doppler) and has refused any med change. Patient has apparently spoken with family, and she approaches me later during free rec and says that she would like to stay and accept a med change. We discuss possible options for med changes to address residual symptoms. She does not want any medication that requires a blood draw. We settle on addition of Lamictal after discussion of R/B/A. Review of Systems ROS Limitations: Poor Historian Except as stated in HPI: all other systems reviewed are Neg Mental Status Examination Appearance: Appropriate Consciousness: Alert Orientation: x4 Motor Activity: Normal gait, Other (no abnormal motor movements noted) Speech: Unremarkable Language: Adequate Fund of Knowledge: Adequate Attention and Concentration: Easily Distracted Mood: Oppositional, Irritable (mild) Affect: Labile (mild) Thought Process & Associations: Circumstantial Thought Content: Other (remains generally appropriate, some bizarre ideation at times) Hallucination Type: None Delusion Type: None Suicidal Ideation: No Suicidal Plan: No Suicidal Intention: No Homicidal Ideation: No Homicidal Plan: No Homicidal Intention: No Insight: Fair (at best) Judgment: Impulsive Results Labs labs reviewed. No new labs. Vitals/IOs Vital Signs Date Time Temp Pulse Resp B/P (MAP) Pulse Ox O2 Delivery O2 Flow Rate FiO2 06/06/17 05:44 97.0 79 18 122/64 (83) 97 06/02/17 15:36 Room Air Assessment & Plan Problem List: (1) Other schizoaffective disorders ICD Codes: F25.8 - Other schizoaffective disorders Assessment & Plan Add Lamictal 25mg qHS for mood stabilization with plans for slow titration to effect. I have discussed the risks, benefits and alternatives of this medication with patient and in particular highlighted the potential for risk of serious rash. Continue Geodon as ordered. Continue to monitor on the inpatient unit. Continue other medications and care as ordered. Justification for Cont. Inpt. Med changes. Risk for decompensation in less restrictive environment. Discharge Planning Pending psychiatric stabilization. Request HC Surrog/Guard Advoc?: No Terry Justin MD Jun 06, 2017 14:51
[2017-06-06 16:41] VITALS: BP 106/71; PULSE 65; RESP 17; TEMP 98.2; O2SAT 97
[2017-06-06] MEDS: lamoTRIgine 25 MG TAB PO SCH (20:27)
[2017-06-07 05:53] VITALS: BP 116/80; PULSE 92; RESP 18; TEMP 98.1; O2SAT 98
[2017-06-07] MEDS: ZIPRASIDONE HCL 60 MG CAP PO SCH ×2 (07:44→18:43)
[2017-06-07] MEDS: metFORMIN HCL 500 MG TAB PO SCH (07:44)
[2017-06-07] MEDS: CLOTRIMAZOLE 1% CREAM 15 GM TOPICAL SCH ×2 (09:00→20:52)
--- NOTE | 2017-06-07 10:25 | HHI.PYPN ---
Subjective Chief Complaint: "Me and my mom weren't getting along." Remarks Patient seen and examined with nurse. Chart reviewed. Case discussed with nursing staff who reports the patient has been behaving well on the unit. Case discussed in treatment team. On my examination today, the patient reports that she slept well overnight. She plans to "go with the flow and take it as it comes." She denies any SI or HI. She is presently calm and cooperative. Some bizarre ideation at times, but I suspect this is a feature of her baseline. Denies side effects from medications. No physical complaints. Review of Systems ROS Limitations: Poor Historian Except as stated in HPI: all other systems reviewed are Neg Mental Status Examination Appearance: Appropriate Consciousness: Alert Orientation: x4 Motor Activity: Normal gait, Other (no abnormal motor movements noted) Speech: Unremarkable Language: Adequate Fund of Knowledge: Adequate Attention and Concentration: Easily Distracted Mood: Appropriate Affect: Euthymic Thought Process & Associations: Circumstantial Thought Content: Bizarre thinking (at times) Hallucination Type: None Delusion Type: None Suicidal Ideation: No Suicidal Plan: No Suicidal Intention: No Homicidal Ideation: No Homicidal Plan: No Homicidal Intention: No Insight: Fair Judgment: Impulsive Results Labs Labs reviewed. No new labs. Vitals/IOs Vital Signs Date Time Temp Pulse Resp B/P (MAP) Pulse Ox O2 Delivery O2 Flow Rate FiO2 06/07/17 05:53 98.1 92 18 116/80 (92) 98 Assessment & Plan Problem List: (1) Other schizoaffective disorders ICD Codes: F25.8 - Other schizoaffective disorders Assessment & Plan Continue Geodon and Lamictal as ordered. Continue to monitor on the inpatient unit. Continue other medications and care as ordered. Justification for Cont. Inpt. Risk for decompensation in less restrictive environment. Discharge Planning Possible discharge after the weekend. Request HC Surrog/Guard Advoc?: No Terry Justin MD Jun 07, 2017 10:24
--- NOTE | 2017-06-07 14:11 | PD.TTN ---
Patient Problems 1. Discharge planning 2. Medication compliance 3. Knowledge deficit 4. Lack of coping skills Progress Toward Goals Provider Present: Dr. Christine Justin Provider Input: Dr. Justin's treatment team met to discuss patient's treatment plan, medication and discharge plan. Patient is verbally aggressive towards others. Patient is medication compliant. Pt medication regiment has been adjusted to include Lamictal Nurse(s) Input: Patient is cooperative today. Has been no behaviorial problem on unit today. 2/- Montserrat Ley RN Pt appears calm, pleasant, less intrusive, medication compliant and is attending groups. Psychiatric Counselors Present: Kristal Holman [facility] Psych Therapist Input: Patient was seen in the dayroom interacting with other patients. Patient was pleasant, cooperative but guarded, good eye contact. Patient's speech was clear and pressured. Patient denied internal stimulation and any delusional content. Patient reports sleeping and eating well. Patient denies suicidal and homicidal ideation. Group Spec/RT/OT/CACERES Present: JAMIE Hawkins Group Spec/RT/OT/CACERES Input: Patient attends select group activities but needs redirection due to her verbal alteracations with staff and peers. Pt attends the groups but is agitated at times. Discharge Plan [facility] Pt will return to her home after discharge and will follow up with [facility]. Documentation Scribe: TOBIAS Graves Jonathan LMHC Jun 07, 2017 14:11
[2017-06-07] MEDS: NICOTINE 14 MG/24 HR PATCH T-DERMAL SCH (16:15)
[2017-06-07 17:00] VITALS: BP 132/62; PULSE 70; RESP 18; TEMP 98.2; O2SAT 97
[2017-06-07] MEDS: REMOVE OLD PATCH T-DERMAL SCH (20:48)
[2017-06-07] MEDS: lamoTRIgine 25 MG TAB PO SCH (20:48)
[2017-06-08] MEDS: ACETAMINOPHEN 325 MG TAB PO PRN (02:20)
[2017-06-08 05:46] VITALS: BP 110/67; PULSE 70; RESP 18; TEMP 97.4; O2SAT 97
[2017-06-08] MEDS: NICOTINE 14 MG/24 HR PATCH T-DERMAL SCH (08:00)
[2017-06-08] MEDS: ZIPRASIDONE HCL 60 MG CAP PO SCH ×2 (08:01→18:33)
[2017-06-08] MEDS: metFORMIN HCL 500 MG TAB PO SCH (08:01)
[2017-06-08] MEDS: CLOTRIMAZOLE 1% CREAM 15 GM TOPICAL SCH ×2 (09:00→20:34)
--- NOTE | 2017-06-08 16:39 | HHI.PYPN ---
Subjective Chief Complaint: "Me and my mom weren't getting along." Remarks Patient was seen and case discussed with nursing. Patient is pleasant and cooperative with exam. Behaving well on the unit. Denies psychotic symptoms today. Tolerating medications well Mental Status Examination Appearance: Appropriate Consciousness: Alert Orientation: x4 Motor Activity: Normal gait, Other (no abnormal motor movements noted) Speech: Unremarkable Language: Adequate Fund of Knowledge: Adequate Attention and Concentration: Easily Distracted Mood: Appropriate Affect: Euthymic Thought Process & Associations: Circumstantial Thought Content: Bizarre thinking (at times) Hallucination Type: None Delusion Type: None Suicidal Ideation: No Suicidal Plan: No Suicidal Intention: No Homicidal Ideation: No Homicidal Plan: No Homicidal Intention: No Insight: Fair Judgment: Impulsive Results Vitals/IOs Vital Signs Date Time Temp Pulse Resp B/P (MAP) Pulse Ox O2 Delivery O2 Flow Rate FiO2 06/08/17 05:46 97.4 70 18 110/67 (81) 97 Assessment & Plan Problem List: (1) Other schizoaffective disorders ICD Codes: F25.8 - Other schizoaffective disorders Assessment & Plan Continue current treatment plan Justification for Cont. Inpt. Patient would decompensate in a less restrictive setting Request HC Surrog/Guard Advoc?: No Jimmy Pace DO Jun 08, 2017 16:39
[2017-06-08 19:12] VITALS: BP 134/94; PULSE 75; RESP 17; TEMP 98.2; O2SAT 97
[2017-06-08] MEDS: lamoTRIgine 25 MG TAB PO SCH (20:34)
[2017-06-08] MEDS: REMOVE OLD PATCH T-DERMAL SCH (20:34)
[2017-06-09] MEDS: ACETAMINOPHEN 325 MG TAB PO PRN (02:23)
[2017-06-09 06:09] VITALS: BP 123/76; PULSE 62; RESP 18; TEMP 97.9; O2SAT 97
[2017-06-09] MEDS: CLOTRIMAZOLE 1% CREAM 15 GM TOPICAL SCH ×2 (09:00→21:27)
[2017-06-09] MEDS: NICOTINE 14 MG/24 HR PATCH T-DERMAL SCH (09:20)
[2017-06-09] MEDS: ZIPRASIDONE HCL 60 MG CAP PO SCH ×2 (09:22→18:01)
[2017-06-09] MEDS: metFORMIN HCL 500 MG TAB PO SCH (09:22)
--- NOTE | 2017-06-09 11:57 | HHI.PYPN ---
Subjective Chief Complaint: "Me and my mom weren't getting along." Remarks Patient was seen and case discussed with nursing. Patient had a visit from Terry and says that improve her mood. She is now sleeping well. She is interactive with others. No psychotic symptoms were elicited today. She is tolerating her medications and behaving well on the Mental Status Examination Appearance: Appropriate Consciousness: Alert Orientation: x4 Motor Activity: Normal gait, Other (no abnormal motor movements noted) Speech: Unremarkable Language: Adequate Fund of Knowledge: Adequate Attention and Concentration: Easily Distracted Mood: Appropriate Affect: Euthymic Thought Process & Associations: Circumstantial Thought Content: Bizarre thinking (at times) Hallucination Type: None Delusion Type: None Suicidal Ideation: No Suicidal Plan: No Suicidal Intention: No Homicidal Ideation: No Homicidal Plan: No Homicidal Intention: No Insight: Fair Judgment: Impulsive Results Vitals/IOs Vital Signs Date Time Temp Pulse Resp B/P (MAP) Pulse Ox O2 Delivery O2 Flow Rate FiO2 06/09/17 06:09 97.9 62 18 123/76 (92) 97 Assessment & Plan Problem List: (1) Other schizoaffective disorders ICD Codes: F25.8 - Other schizoaffective disorders Assessment & Plan Continue current treatment plan Justification for Cont. Inpt. Patient would decompensate in a less restrictive setting Request HC Surrog/Guard Advoc?: No Jimmy Pace DO Jun 09, 2017 11:57
[2017-06-09 18:41] VITALS: BP 130/72; PULSE 80; RESP 16; TEMP 98.2; O2SAT 98
[2017-06-09] MEDS: REMOVE OLD PATCH T-DERMAL SCH (21:00)
[2017-06-09] MEDS: lamoTRIgine 25 MG TAB PO SCH (21:24)
[2017-06-10 06:03] VITALS: BP 94/51; PULSE 68; RESP 18; TEMP 98.1; O2SAT 96
[2017-06-10] MEDS: metFORMIN HCL 500 MG TAB PO SCH (08:54)
[2017-06-10] MEDS: NICOTINE 14 MG/24 HR PATCH T-DERMAL SCH (08:54)
[2017-06-10] MEDS: ZIPRASIDONE HCL 60 MG CAP PO SCH (08:54)
[2017-06-10] MEDS: CLOTRIMAZOLE 1% CREAM 15 GM TOPICAL SCH (08:56)
[2017-06-10] MEDS ORDERED: LAMO25 PO (11:30)
--- NOTE | 2017-06-10 16:51 | HHI.DS ---
Psychiatry Discharge Summary Inpatient Psychiatric care?: Yes Advance Directive: No Reason Not Provided: Due to Patient Condition Mental Health AdvanceDirective: No Health Care Proxy: No Admission Admission Date Jun 02, 2017 at 13:22 Admission Diagnosis: (1) Other schizoaffective disorders ICD Code: F25.8 - Other schizoaffective disorders Brief History Ms. Gar is a 51-year-old female with a history of schizoaffective disorder, recently discharged from the inpatient psychiatric unit back to home. She was brought back to the emergency department on the for psychiatric evaluation. She was screened by the psychiatric nurse practitioner who obtained collateral information from patient's brother and mother. Electronic medical record reviewed. Patient seen and examined with nurse. Chart reviewed. Case discussed with nursing staff who reports patient has been somewhat oppositional and hostile toward nurse, although she has not been physically aggressive or assaultive. On my exam, patient is calm with a slightly irritable edge. She tells me "I'm completely normal." She says that she got into an argument with her mother upon returning home. She denies AVH. She denies SI or HI. Mood is somewhat dysphoric. No other depressive or hypomanic/manic symptoms. She does admit to poor sleep prior to admission. She does display some hostility toward nurse during our interview but keeps her behavior in check. No side effects from Geodon. No reported issues with medication nonadherence prior to admission. No physical complaints. Past psychiatric, family, chemical dependency and social history were obtained by Dr. Ribera in his H&P from 05/18, and I refer the reader also to my note from 05/21. These data are not much changed today, except that patient does note that she followed up at [facility] following discharge from hospital. Tobacco Use In Past 30 Days: No Tobacco Past 30 Days Alcohol Use: Never Hospital Course Patient was admitted to a locked, inpatient psychiatric unit. General medical consultation was obtained. Appropriate precautions were in place throughout patient's hospital stay. Patient was seen and examined on the unit by psychiatry and also visited by counselor. Patient was initially resistant to psychotropic medication changes but ultimately did accept addition of Lamictal. Patient tolerated medication changes well without side effects. Patient had improvement in presenting psychiatric symptomatology during the course of her hospital stay. Patient's behavior improved considerably with the benefit of psychopharmacologic treatment. There was no evidence of any suicidality or homicidality on the unit. The patient was uneventfully transition from the higher acuity unit to the lower acuity unit and tolerated the milieu of the lower acuity unit well. On the day of discharge: Patient seen and examined with nurse. Chart reviewed. Case discussed with nursing staff. No behavioral issues noted overnight. Case discussed with counselor. Counselor reports that the patient's family is willing to accept her home today. On my examination today, the patient is requesting discharge from the inpatient psychiatric unit today. She denies suicidal or homicidal ideation, intent or plan on direct questioning, and she contracts for safety. I can elicit no depressive or hypomanic/manic symptoms. She denies any audiovisual hallucinations, and I can elicit no delusional material. She denies side effects from medications. She has no physical complaints. Suicide and violence risk assessment on day of discharge both suggest lower imminent risk, and the patient's level of function is adequate for outpatient care. The patient does not meet criteria for ongoing involuntary psychiatric hospitalization at this time and is requesting discharge from the inpatient unit today. The patient has maximized benefit from this inpatient psychiatric hospital stay. She will be discharged home today with psychiatric follow-up as arranged by counselor. Patient is also to follow-up with primary care. I have counseled the patient to abstain from any substances of abuse. I've counseled the patient regarding warning signs for need to return to the psychiatric emergency room as part of a general safety plan. Results Blood Pressure 94 / 51 Vital Signs Date Time Temp Pulse Resp B/P (MAP) Pulse Ox O2 Delivery O2 Flow Rate FiO2 06/10/17 06:03 98.1 68 18 94/51 (65) 96 Laboratory Results Test 06/04/17 05:51 Cholesterol Level 142 MG/DL (120-200) HDL Cholesterol 37.7 MG/DL (40.0-60.0) Hemoglobin A1c 6.2 % (4.3-6.0) LDL Cholesterol 76 MG/DL (0-99) Triglycerides Level 143 MG/DL (42-150) Summary of Procedures None done Imaging None done Pending results at discharge: No Medications # of Antipsychotic meds at D/C: 1 Approp Antipsych med options 1 - Minimum of three failed multiple trials of monotherapy. 2 - Documented plan to taper to monotherapy due to previous use of multiple meds OR cross-taper in progress at D/C. 3 - Documentation of augmentation of Clozapine. 4 - Justification other than those listed in allowable values 1-3, document here : Discharge Discharge Date: Jun 10, 2017 Discharge Diagnosis: (1) Other schizoaffective disorders Diagnosis: Principal (stable) ICD Code: F25.8 - Other schizoaffective disorders Pt Condition on Discharge: Stable Discharge Disposition: Discharge Home Discharge Instructions Diet Instructions: As Tolerated, No Restrictions Activities you can perform: Weight Bearing as Pancho Scheduled Appointment: Shreyas Nielson Appointment Date: Jun 12, 2017 Appointment Time: 7:30 am New Medications: Clotrimazole Topical (Clotrimazole AF Topical) 1% Cream 1 APPLIC TOPICAL Q12HR for Health, #1 TUBE 1 Refill Apply to right foot. Lamotrigine (Lamictal) 25 Mg Tab 25 MG PO HS for Mental Health for 15 Days, TAB 1 Refill Continued Medications: Metformin (Glucophage) 500 Mg Tab 500 MG PO DAILY for Blood Sugar Management for 15 Days, #15 TAB 1 Refill Ziprasidone (Geodon) 60 Mg Cap 120 MG PO BIDPC for Mental Health for 15 Days, CAP 1 Refill Zolpidem (Ambien) 10 Mg Tab 10 MG PO HS PRN for INSOMNIA for 15 Days, TAB 1 Refill Discharge Time <= 30 minutes Mental Status Examination Appearance: Appropriate, Well dressed/well groomed Consciousness: Alert Orientation: x4 Motor Activity: Normal gait, Other (no motoric abnormalities noted) Speech: Unremarkable Language: Adequate Fund of Knowledge: Adequate Attention and Concentration: Adequate Memory: Unremarkable Mood: Appropriate Affect: Appropriate, Euthymic Thought Process & Associations: Intact Thought Content: Appropriate Hallucination Type: None Delusion Type: None Suicidal Ideation: No Suicidal Plan: No Suicidal Intention: No Homicidal Ideation: No Homicidal Plan: No Homicidal Intention: No Insight: Fair Judgment: Adequate (fair at best) Discharge/Advance Care Plan Health Problems: (1) Other schizoaffective disorders Goals to promote your health * To prevent worsening of your condition and complications * To maintain your health at the optimal level Directions to meet your goals Take your medications as prescribed Follow your dietary instruction Follow activity as directed Keep your appointments as scheduled Take your immunizations and boosters as scheduled If your symptoms worsen call your PCP, if no PCP go to Urgent Care Center or Emergency Room For 26/11 questions related to your inpatient stay or results of tests pending at discharge, please contact Dr. Terry Justin at Smoking is Dangerous to Your Health. Avoid second hand smoking Terry Justin MD Jun 10, 2017 16:51
== END 2017-06-10 16:30 | disposition home or self-care (01) | DRG 885 ==
LOC: NEPD 14:50 → NEDA 06-02 13:22 → H270 06-02 16:26 → H260 06-08 22:25
PROVIDERS: ADMIT Psychiatry & Neurology Psychiatry; ATTEND Psychiatry & Neurology Psychiatry
DX: F25.9 Schizoaffective disorder, unspecified (principal); E11.9 Type 2 diabetes mellitus without complications; B19.20 Unspecified viral hepatitis C without hepatic coma; B35.3 Tinea pedis; Z79.84 Long term (current) use of oral hypoglycemic drugs; Z72.0 Tobacco use
CPT/HCPCS: 80048; 80061; 83036; 99285

== ENCOUNTER 2017-07-04 17:08 | Inpatient (IN) | payer MEDICARE, OTHER ==
[~2017-07-04] VITALS: Ht 167.6 cm; Wt 107.4 kg
[~2017-07-04 17:08] MED LIST changes: +CLOT1CRE8 TOPICAL; +LAMO25 PO
[2017-07-04 17:13] VITALS: BP 134/79; PULSE 85; RESP 20; TEMP 98.7; O2SAT 96
[2017-07-04] MEDS ORDERED: CEFU1TAB18 PO (17:21)
--- NOTE | 2017-07-04 17:47 | PD ---
HPI Chief Complaint: Psychiatric Symptoms Time Seen by Provider: 17:30 Travel History International Travel<30 days: No Contact w/Intl Traveler<30days: No Traveled to known affect area: No History of Present Illness HPI 51-year-old schizophrenic patient brought in under the ex parte, with reports of increased threatening behavior toward her mother who she lives with. Patient states she does not like the meds that she was placed on several weeks ago. She denies any other significant acute medical problems currently. Patient denies suicidal or homicidal ideation currently. She has no known drug allergies. PFSH Past Medical History Autoimmune Disease: No Cancer: No Diabetes: Yes Patient Takes Glucophage: Yes (metformin 07/04/17) Diminished Hearing: No Gastrointestinal Disorders: Yes (HEP C) Hepatitis: Yes (C) Heparin Induced Thrombocytopen: No Immune Disorder: No Implanted Vascular Access Dvce: No Psychiatric: Yes Reproductive: No Immunizations Current: No Schizophrenia: Yes Sickle Cell Disease: No Thyroid Disease: No Tetanus Vaccination: Unknown ?: Not Past Surgical History Surgical History: No Previous Surgery AICD: No Arteriovenous Shunt: No Insulin Pump: No Joint Replacement: No Pacemaker: No Social History Alcohol Use: Yes (occasionally) Tobacco Use: Yes (1 ppd) Substance Use: No Allergies-Medications (Allergen,Severity, Reaction): Coded Allergies: No Known Allergies (Unverified , 07/04/17) Reported Meds & Prescriptions Reported Meds & Active Scripts Active Lamictal (Lamotrigine) 25 Mg Tab 25 Mg PO HS 15 Days Glucophage (Metformin HCl) 500 Mg Tab 500 Mg PO DAILY 15 Days Ambien (Zolpidem Tartrate) 10 Mg Tab 10 Mg PO HS PRN 15 Days Geodon (Ziprasidone) 60 Mg Cap 120 Mg PO BIDPC 15 Days Review of Systems General / Constitutional: No: Fever Eyes: No: Visual changes HENT: No: Headaches Cardiovascular: No: Chest Pain or Discomfort Respiratory: No: Shortness of Breath Gastrointestinal: No: Abdominal Pain Genitourinary: No: Dysuria Musculoskeletal: No: Pain Skin: No Rash Neurologic: No: Weakness Psychiatric: No: Depression Endocrine: No: Polydipsia Hematologic/Lymphatic: No: Easy Bruising Physical Exam Narrative GENERAL: Patient appears mildly anxious but otherwise in no obvious distress. SKIN: Warm and dry. Normal color. Normal turgor. No signs of trauma. HEAD: Atraumatic. Normocephalic. EYES: Pupils equal and round. No scleral icterus. No injection or drainage. ENT: No nasal bleeding or discharge. Mucous membranes pink and moist. Pharynx is clear. Airways patent. NECK: Trachea midline. Supple and nontender. CARDIOVASCULAR: Regular rate and rhythm. RESPIRATORY: No accessory muscle use. Clear to auscultation. Breath sounds equal bilaterally. MUSCULOSKELETAL: Extremities without clubbing, cyanosis, or edema. No obvious deformities. NEUROLOGICAL: Awake and alert. No obvious cranial nerve deficits. Motor grossly within normal limits. Five out of 5 muscle strength in the arms and legs. Normal speech. PSYCHIATRIC: Appropriate mood and affect; insight and judgment normal. Data Data Last Documented VS Vital Signs Date Time Temp Pulse Resp B/P (MAP) Pulse Ox O2 Delivery O2 Flow Rate FiO2 07/04/17 17:13 98.7 85 20 134/79 (97) 96 Orders Orders Complete Blood Count With Diff (07/04/17 17:29) Comprehensive Metabolic Panel (07/04/17 17:29) Urinalysis - C+S If Indicated (07/04/17 17:29) Psych Screen (07/04/17 17:29) Drug Screen, Random Urine (07/04/17 17:29) Labs Laboratory Tests Test 07/04/17 17:30 [facility] Medical Decision Making Medical Screen Exam Complete: Yes Emergency Medical Condition: Yes Medical Record Reviewed: Yes Differential Diagnosis Psychosis. Schizophrenia. Ex Parte Narrative Course Psychiatric labs ordered as per protocol. Patient is medically clear for psychiatric evaluation. Condition: Stable Rambo Tesfaye Jul 04, 2017 17:47
[2017-07-04 17:53] LABS: BACTERIA, URINE OCC /hpf; BILIRUBIN, URINE NEG (NEG); BLOOD, URINE NEG (NEG); GLUCOSE,URINE NEG (NEG); KETONE, URINE NEG (NEG); MUCUS URINE FEW /lpf (OCC); NITRITE,URINE NEG (NEG); PH, URINE 5.5 (5.0-8.5); SQUAMOUS EPITHELIAL CELL URINE 18 /hpf (0-5); URINE COLOR LIGHT-YELLOW (YELLW/STRAW); URINE LEUKOCYTE ESTERASE NEG (NEG)
[2017-07-04 17:54] LABS: AUTOMATED NEUTROPHIL # 4.8 TH/MM3 (1.8-7.7); BASOPHIL # 0.1 TH/MM3 (0-0.2); BASOPHIL % 0.8 % (0.0-2.0); EOSINOPHIL # 0.1 TH/MM3 (0-0.4); EOSINOPHIL % 0.8 % (0.0-4.0); HEMATOCRIT 40.4 % (35.0-46.0); HEMOGLOBIN 13.7 GM/DL (11.6-15.3); LYMPH % 46.9 % (9.0-44.0); LYMPHOCYTE # 5.3 TH/MM3 (1.0-4.8); MEAN CELL VOLUME 89.2 FL (80.0-100.0); MEAN CORPUSCULAR HEMOGLOBIN 30.1 PG (27.0-34.0); MEAN CORPUSCULAR HGB CONC 33.8 % (32.0-36.0); MEAN PLATELET VOLUME 8.1 FL (7.0-11.0); MONO % 9.2 % (0.0-8.0); NEUT % 42.3 % (16.0-70.0); PLATELET COUNT 337 TH/MM3 (150-450); RED BLOOD COUNT 4.53 MIL/MM3 (4.00-5.30); RED CELL DISTRIBUTION WIDTH 13.7 % (11.6-17.2); WHITE BLOOD COUNT 11.3 TH/MM3 (4.0-11.0)
[2017-07-04 18:01] LABS: ALBUMIN 3.9 GM/DL (3.4-5.0); AST (GOT) 20 U/L (15-37); BICARBONATE 21.3 MEQ/L (21.0-32.0); BLOOD UREA NITROGEN 12 MG/DL (7-18); CALCIUM 9.8 MG/DL (8.5-10.1); CHLORIDE 108 MEQ/L (98-107); CREATININE 0.85 MG/DL (0.50-1.00); GLOMERULAR FILTRATION RATE 70 ML/MIN (>89); GLUCOSE,RANDOM 100 MG/DL (74-106); SODIUM (NA) 140 MEQ/L (136-145)
[2017-07-04 18:02] LABS: ALT (GPT) 22 U/L (10-53)
[2017-07-04 18:04] LABS: ALKALINE PHOSPHATASE 59 U/L (45-117); TOTAL BILIRUBIN ADULT 0.1 MG/DL (0.2-1.0); TOTAL PROTEIN 7.6 GM/DL (6.4-8.2)
[2017-07-04 19:21] VITALS: BP 128/98; PULSE 74; RESP 18; O2SAT 97
[2017-07-04] MEDS ORDERED: ZIPRASIDONE MESYLATE 20 MG VIAL IM ONE (21:00)
[2017-07-04] MEDS ORDERED: LAMO100T PO (22:32)
[2017-07-04] MEDS ORDERED: NICO14DI4 T-DERMAL (22:38)
[2017-07-04] MEDS ORDERED: CHLO.12%30 SWISH-SPIT (22:38)
[2017-07-05] MEDS ORDERED: diphenhydrAMINE HCL 50 MG/ML VIAL IM ONE (00:30)
[2017-07-05] MEDS ORDERED: LORazepam 2 MG/ML VIAL IM ONE (00:30)
[2017-07-05 02:10] VITALS: BP 116/56; PULSE 70; RESP 16; O2SAT 97
[2017-07-05 06:30] VITALS: BP 112/55; PULSE 66; RESP 16; O2SAT 96
[2017-07-05 10:00] VITALS: BP 112/68; PULSE 60; RESP 20
--- NOTE | 2017-07-05 10:12 | PD.PN.STU ---
Subjective Remarks 51 year old single white female with schizophrenia recently discharged from [facility] on 06/10/17 domicile with her mother and brother in [place], [place] presents under ex parte for reported increased aggression and threatening behavior towards her mother. She reports that she was taking her psych medications as prescribed but they "stopped working yesterday" and she became aggressive with her brother. She denies SI, HI, and AVD. Per psychiatry screening the mother, Shanique Gar, reports: "Salas Act 05-17-17 her behavior was threatening and out of control, very frightening for me. After first the first admission to [facility], was released, I believe, prematurely. Symptoms very apparent. My son and I urged her to voluntarily admit herself back into treatment, over the last 2 weeks and she refused due to her schizophrenia. Despite taking all her medications prescribed, she continues to exhibit symptoms including: delusions, paranoia and does not be in the present most of the time. She hears voice." Past Psych Hx: Patient reports anxiety, depression, borderline personality disorder Denies Suicidal attempts. 1 previous BA multiple hospitalizations in [place], 2 in the last month here. Med Hx: DM treated with metformin Family HX: none Social Hx: Lives with her mother and brother in [place] for 1 year. Born in [place]. 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 Denies alcohol use. 1/2 pack day smoker Denies hx of abuse. Objective Vitals Vital Signs Date Time Temp Pulse Resp B/P (MAP) Pulse Ox O2 Delivery O2 Flow Rate FiO2 07/05/17 06:30 66 16 112/55 (74) 96 Room Air 07/05/17 02:10 70 16 116/56 (76) 97 Room Air 07/04/17 19:21 74 18 128/98 (108) 97 Room Air 07/04/17 17:13 98.7 85 20 134/79 (97) 96 Laboratory Tests Test 07/04/17 17:30 White Blood Count 11.3 TH/MM3 Red Blood Count 4.53 MIL/MM3 Hemoglobin 13.7 GM/DL Hematocrit 40.4 % Mean Corpuscular Volume 89.2 FL Mean Corpuscular Hemoglobin 30.1 PG Mean Corpuscular Hemoglobin Concent 33.8 % Red Cell Distribution Width 13.7 % Platelet Count 337 TH/MM3 Mean Platelet Volume 8.1 FL Neutrophils (%) (Auto) 42.3 % Lymphocytes (%) (Auto) 46.9 % Monocytes (%) (Auto) 9.2 % Eosinophils (%) (Auto) 0.8 % Basophils (%) (Auto) 0.8 % Neutrophils # (Auto) 4.8 TH/MM3 Lymphocytes # (Auto) 5.3 TH/MM3 Monocytes # (Auto) 1.0 TH/MM3 Eosinophils # (Auto) 0.1 TH/MM3 Basophils # (Auto) 0.1 TH/MM3 CBC Comment AUTO DIFF Differential Comment AUTO DIFF CONFIRMED Platelet Estimate NORMAL Platelet Morphology Comment NORMAL Urine Color LIGHT-YELLOW Urine Turbidity HAZY Urine pH 5.5 Urine Specific [place] 1.009 Urine Protein NEG mg/dL Urine Glucose (UA) NEG mg/dL Urine Ketones NEG mg/dL Urine Occult Blood NEG Urine Nitrite NEG Urine Bilirubin NEG Urine Urobilinogen LESS THAN 2.0 MG/DL Urine Leukocyte Esterase NEG Urine RBC LESS THAN 1 /hpf Urine WBC LESS THAN 1 /hpf Urine Squamous Epithelial Cells 18 /hpf Urine Bacteria OCC /hpf Urine Mucus FEW /lpf Microscopic Urinalysis Comment CULT NOT INDICATED Blood Urea Nitrogen 12 MG/DL Creatinine 0.85 MG/DL Random Glucose 100 MG/DL Total Protein 7.6 GM/DL Albumin 3.9 GM/DL Calcium Level 9.8 MG/DL Alkaline Phosphatase 59 U/L Aspartate Amino Transf (AST/SGOT) 20 U/L Alanine Aminotransferase (ALT/SGPT) 22 U/L Total Bilirubin 0.1 MG/DL Sodium Level 140 MEQ/L Potassium Level 4.0 MEQ/L Chloride Level 108 MEQ/L Carbon Dioxide Level 21.3 MEQ/L Anion Gap 11 MEQ/L Estimat Glomerular Filtration Rate 70 ML/MIN Urine Opiates Screen NEG Urine Barbiturates Screen NEG Urine Amphetamines Screen NEG Urine Benzodiazepines Screen NEG Urine Cocaine Screen NEG Urine Cannabinoids Screen NEG Result Diagram: 07/04/17 1730 07/04/17 1730 Objective Remarks MSE: Appearance: Disheveled, poor hygiene Behavior: intrusive behavior on the unit. Became aggressive and threatening medical student on examination. Speech: normal rate and rhythm, hesitant at times. Alert + Oriented x3 Memory: recent and remote intact Thought content: Paranoid delusions present. no SI/HI or AVD. Thought Process: tangential at times, goal directed at other times. Disorganized. Mood: "calm" Affect: labile, consistent at time and inappropriately elevated at times. Impulse control: poor Insight: Poor Judgement: fair, reports medication compliance A/P Assessment and Plan 51 year old female with decompensated schizophrenia with inappropriate affect, paranoid delusions, signs of internal stimulation presents with exacerbation of psychosis with aggressive behavior in exam and per mothers report. She has paranoid delusions of someone threatening her and stealing her things. She became aggressive with the medical student upon questioning and stated "what makes you think you can steal my car," and "I'm not gong to beat her up but if you don't get out of my room I'm going to hit you over the head with this" while holding a banana and waving it around towards her. Her intrusive behavior on the german, standing at the window and talking with herself, and per her mothers report carries a high risk of harm to herself or others. Discharge Planning Admit to 2600 for further evaluation and medication stabilization. Restart her Geodon 120mg BID. Audrey Posada M3 Jul 05, 2017 10:12
--- NOTE | 2017-07-05 12:13 | HHI.HP ---
Provisional Diagnosis Admission Date Winfred I. Schizophrenia Winfred II. Borderline personality disorder Winfred III. Diabetes Certification of Person's Competence To Provide Express and Informed Consent I have personally examined Shanique Gar , a person being served at [facility] on, Jul 05, 2017 12:13. Express and informed consent means consent voluntarily given in writing, by a competent person, after sufficient explanation and disclosure of the subject matter involved to enable the person to make a knowing and willful decision without any element of force, fraud, deceit, duress, or other form of constraint or coercion. This person is 18 years of age or older, is not now known to be incompetent to consent to treatment with a guardian advocate, and does not have a health care surrogate or proxy currently making medical treatment decisions. I have found this person to be one of the following: [] Competent to provide express and informed consent, as defined above, for voluntary admission to this facility and is competent to provide express and informed consent for treatment. He/she has the consistent capacity to make well reasoned, willful, and knowing decisions concerning his or her medical or mental health treatment. The person fully and consistently understands the purpose of the admission for examination/placement and is fully capable of personally exercising all rights assured [place] Incompetent to provide express and informed consent to voluntary admission, and this is incompetent to provide express and informed consent to treatment. The person must be transferred to involuntary status and a petition for a guardian advocate filed with the Circuit Court. [x] Refusing to provide express and informed consent to voluntary admission but is competent to provide express and informed consent for treatment. The person must be discharged or transferred to involuntary status. Form shall be completed within 24 hours of a person's arrival at the receiving facility and filed in the clinical record of each person: 1. Admitted on a voluntary basis 2. Permitted to provide express and informed consent to his/her own treatment 3. Allowed to transfer from involuntary to voluntary status 4. Prior to permitting a person to consent to his or her own treatment after having been previously found incompetent to consent to treatment. History of Present Illness Capacity: Has Capacity HPI The patient is a 51 year-old white, single, female with schizophrenia [facility] [place], [place] presents under ex parte for reported increased aggression and threatening behavior towards her mother. She reports that she was taking her psych medications as prescribed but they "stopped working yesterday" and she became aggressive with her brother. She denies SI, HI, and AVD. Per psychiatry screening the mother, Shanique Gar, reports: "Salas Act 04-22 her behavior was threatening and out of control, very frightening for me. After first the first admission to [facility], was released, I believe, prematurely. Symptoms very apparent. My son and I urged her to voluntarily admit herself back into treatment, over the last 2 weeks and she refused due to her schizophrenia. Despite taking all her medications prescribed, she continues to exhibit symptoms including: delusions, paranoia and does not be in the present most of the time. She hears voice. As per family members the patient has been very disorganized, acting erratically at home, noncompliant with medications, very disruptive, is sleeping poorly, talking to herself. Also her mother clarifies that the patient has been saying that she is hearing voices. Review of Systems Constitutional: DENIES: Diaphoretic episodes, Fatigue, Fever, Weight gain, Weight loss, Chills, Dizziness, Change in appetite, Night Sweats Endocrine: DENIES: Abnorml menstrual pattern, Heat/cold intolerance, Polydipsia , Polyuria, Polyphagia Eyes: DENIES: Blurred vision, Diplopia, Eye inflammation, Eye pain, Vision loss , Photosensitivity, Double Vision Ears, nose, mouth, throat: DENIES: Tinnitus, Hearing loss, Vertigo, Nasal discharge, Oral lesions, Throat pain, Hoarseness, Ear Pain, Running Nose, Epistaxis, Sinus Pain, Toothache, Odynophagia Respiratory: DENIES: Apneas, Cough, Snoring, Wheezing, Hemoptysis, Sputum production, Shortness of breath Cardiovascular: DENIES: Chest pain, Palpitations, Syncope, Dyspnea on Exertion , PND, Lower Extremity Edema, Orthopnea, Claudication Gastrointestinal: DENIES: Abdominal pain, Black stools, Bloody stools, Constipation, Diarrhea, Nausea, Vomiting, Difficulty Swallowing, Anorexia Musculoskeletal: DENIES: Joint pain, Muscle aches, Stiffness, Joint Swelling, Back pain, Neck pain Integumentary: DENIES: Abnormal pigmentation, Pruritus, Rash, Nail changes, Breast masses, Breast skin changes, Nipple discharge Hematologic/lymphatic: DENIES: Bruising, Lymphadenopathy Immunologic/allergic: DENIES: Eczema, Urticaria Psychiatric: COMPLAINS OF: Confusion, Hallucinations, Delusions Past Psych History Violence risk - others (6 mos) Increased Violence risk - self (6 mos) Increased Substance Abuse History Drugs/Alcohol past 12 months Denies drugs and alcohol Past Family Social History Coded Allergies: No Known Allergies (Unverified , 07/04/17) Past Medical History Past Psych Hx: Patient reports anxiety, depression, borderline personality disorder Denies Suicidal attempts. 1 previous BA multiple hospitalizations in [place], 2 in the last month here. Med Hx: DM treated with metformin Active Scripts Metformin (Glucophage) 500 Mg Tab, 500 MG PO DAILY for Blood Sugar Management for 15 Days, #15 TAB 1 Refill Prov:Terry Justin MD 05/29/17 Ziprasidone (Geodon) 60 Mg Cap, 120 MG PO BIDPC for Mental Health for 15 Days, CAP 1 Refill Prov:Terry Justin MD 05/29/17 Reported Medications Nicotine Patch (Nicoderm CQ Patch) 14 Mg/24 Hr Patch, 14 MG T-DERMAL DAILY for Smoking Cessation, #30 PATCH 0 Refills 07/04/17 Chlorhexidine Gluconate (Mouth) Liq (Chlorhexidine Gluconate (Mouth) Liq) 0.12% Soln, 15 ML SWISH-SPIT BID, #473 ML 0 Refills 07/04/17 Lamotrigine (Lamotrigine) 100 Mg Tab, 100 MG PO HS for MENTAL HEALTH, #30 TAB 0 Refills 07/04/17 Cefuroxime (Ceftin) 250 Mg Tab, 250 MG PO BID, TAB 07/04/17 Discontinued Scripts Lamotrigine (Lamictal) 25 Mg Tab, 25 MG PO HS for Mental Health for 15 Days, TAB 1 Refill Prov:Terry Justin MD 06/10/17 Clotrimazole Topical (Clotrimazole AF Topical) 1% Cream, 1 APPLIC TOPICAL Q12HR for Health, #1 TUBE 1 Refill Apply to right foot. Prov:Terry Justin MD 06/06/17 Zolpidem (Ambien) 10 Mg Tab, 10 MG PO HS Y for INSOMNIA for 15 Days, TAB 1 Refill Prov:Terry Justin MD 05/29/17 Current Medications Medications (Trade) Dose Ordered Sig/William Route Start Time Stop Time Status Last Admin (Glucophage) 500 mg DAILY PO 07/05/17 12:15 UNV (Geodon) 120 mg BIDPC PO 07/05/17 18:00 UNV (Ativan) 1 mg Q6H PRN PO 07/05/17 12:15 UNV (Ativan Inj) 1 mg Q6H PRN IM 07/05/17 12:15 UNV (Ativan) 0.5 mg Q12H PRN PO 07/05/17 12:15 UNV (Ativan Inj) 0.5 mg Q12H PRN IM 07/05/17 12:15 UNV (Tylenol) 650 mg Q4H PRN PO 07/05/17 12:15 UNV (Milk Of Magnesia Liq) 30 ml DAILY PRN PO 07/05/17 12:15 UNV (Mag-Al Plus Susp Liq) 30 ml Q6H PRN PO 07/05/17 12:15 UNV (Habitrol 21 Mg Patch.24 Hr) 1 patch DAILY T-DERMAL 07/06/17 09:00 UNV Family Psych History Family HX: none Social History Social Hx: Lives with her mother and brother in [place] for 1 year. Born in [place]. 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 Denies alcohol use. 1/2 pack day smoker Denies hx of abuse. Patient's Strengths (min. 2) Social support, establish outpatient care Physical Exam Psychomotor agitation, restlessness, no acute dystonia, no tardive dyskinesia, no gait disturbance Vital Signs Vital Signs Date Time Temp Pulse Resp B/P (MAP) Pulse Ox O2 Delivery O2 Flow Rate FiO2 07/05/17 10:00 60 20 112/68 (83) Room Air 07/05/17 06:30 96 07/04/17 17:13 98.7 Lab Results Test 07/04/17 17:30 White Blood Count 11.3 TH/MM3 Red Blood Count 4.53 MIL/MM3 Hemoglobin 13.7 GM/DL Hematocrit 40.4 % Mean Corpuscular Volume 89.2 FL Mean Corpuscular Hemoglobin 30.1 PG Mean Corpuscular Hemoglobin Concent 33.8 % Red Cell Distribution Width 13.7 % Platelet Count 337 TH/MM3 Mean Platelet Volume 8.1 FL Neutrophils (%) (Auto) 42.3 % Lymphocytes (%) (Auto) 46.9 % Monocytes (%) (Auto) 9.2 % Eosinophils (%) (Auto) 0.8 % Basophils (%) (Auto) 0.8 % Neutrophils # (Auto) 4.8 TH/MM3 Lymphocytes # (Auto) 5.3 TH/MM3 Monocytes # (Auto) 1.0 TH/MM3 Eosinophils # (Auto) 0.1 TH/MM3 Basophils # (Auto) 0.1 TH/MM3 CBC Comment AUTO DIFF Differential Comment AUTO DIFF CONFIRMED Platelet Estimate NORMAL Platelet Morphology Comment NORMAL Urine Color LIGHT-YELLOW Urine Turbidity HAZY Urine pH 5.5 Urine Specific [place] 1.009 Urine Protein NEG mg/dL Urine Glucose (UA) NEG mg/dL Urine Ketones NEG mg/dL Urine Occult Blood NEG Urine Nitrite NEG Urine Bilirubin NEG Urine Urobilinogen LESS THAN 2.0 MG/DL Urine Leukocyte Esterase NEG Urine RBC LESS THAN 1 /hpf Urine WBC LESS THAN 1 /hpf Urine Squamous Epithelial Cells 18 /hpf Urine Bacteria OCC /hpf Urine Mucus FEW /lpf Microscopic Urinalysis Comment CULT NOT INDICATED Blood Urea Nitrogen 12 MG/DL Creatinine 0.85 MG/DL Random Glucose 100 MG/DL Total Protein 7.6 GM/DL Albumin 3.9 GM/DL Calcium Level 9.8 MG/DL Alkaline Phosphatase 59 U/L Aspartate Amino Transf (AST/SGOT) 20 U/L Alanine Aminotransferase (ALT/SGPT) 22 U/L Total Bilirubin 0.1 MG/DL Sodium Level 140 MEQ/L Potassium Level 4.0 MEQ/L Chloride Level 108 MEQ/L Carbon Dioxide Level 21.3 MEQ/L Anion Gap 11 MEQ/L Estimat Glomerular Filtration Rate 70 ML/MIN Urine Opiates Screen NEG Urine Barbiturates Screen NEG Urine Amphetamines Screen NEG Urine Benzodiazepines Screen NEG Urine Cocaine Screen NEG Urine Cannabinoids Screen NEG Mental Status Examination Appearance: Disheveled Consciousness: Alert Orientation: x4 Motor Activity: Abnormal gait Speech: Unremarkable Fund of Knowledge: Adequate Memory: Unremarkable Mood: Appropriate, Anxious, Irritable Affect: Labile Thought Process & Associations: Goal directed, Disorganized, Other Thought Content: Bizarre thinking, Preoccupations, Delusional, Obsessions Hallucination Type: Auditory Delusion Type: Paranoid Suicidal Ideation: No Suicidal Plan: No Suicidal Intention: No Homicidal Ideation: No Homicidal Plan: No Homicidal Intention: No Insight: Poor Judgment: Poor Assessment & Plan Problem List: (1) Schizophrenia ICD Codes: F20.9 - Schizophrenia, unspecified Assessment & Plan: The patient is a 51 year old female who presents with decompensated with signs of schizophrenia with inappropriate affect, paranoid delusions, signs of internal stimulation, with reality distortion, with aggressive behavior in exam and per mothers report. She has paranoid delusions of someone threatening her and stealing her things. She became aggressive with the medical student upon questioning and stated "what makes you think you can steal my car," and "I'm not gong to beat her up but if you don't get out of my room I'm going to hit you over the head with this" while holding a banana and waving it around towards her. Her intrusive behavior on the german, standing at the window and talking with herself, and per her mothers report carries a high risk of harm to herself or others. I would restart her outpatient psychotropics , including Geodon 120 mg twice a day. clerical and office support workers intervention for psychosocial assessment, collateral information, individual and group therapies , also to coordinating a safe discharge planning. I also will consult psychiatry for second opinion. Assessment & Plan Estimated LOS: Venu Orona MD Jul 05, 2017 12:13
[2017-07-05] MEDS ORDERED: MAGNESIUM HYDROXIDE SUSP 30 ML CUP PO PRN (12:15)
[2017-07-05] MEDS ORDERED: LORazepam 2 MG/ML VIAL IM PRN ×2 (12:15)
[2017-07-05] MEDS: metFORMIN HCL 500 MG TAB PO SCH (12:15)
[2017-07-05] MEDS ORDERED: LORazepam 0.5 MG TAB PO PRN (12:15)
[2017-07-05 12:31] VITALS: BP 96/58; PULSE 62; RESP 18; TEMP 97.5; O2SAT 99
--- NOTE | 2017-07-05 13:48 | PD.PSY.CON ---
Provisional Diagnosis Admission Date Jul 05, 2017 at 12:11 [place] I. Schizophrenia [place] II. Borderline personality disorder [place] III. Diabetes History of Present Illness Service Psychiatry Consult Requested By Dr. Redmond Reason for Consult Second opinion petition supporting Salas act Primary Care Physician Unknown HPI The patient is a 51 year-old white, single, female with schizophrenia recently discharged from [facility] on 06/10/17 domicile with her mother and brother in [place], [place] presents under ex parte for reported increased aggression and threatening behavior towards her mother. She reports that she was taking her psych medications as prescribed but they "stopped working yesterday" and she became aggressive with her brother. She denies SI, HI, and AVD. Per psychiatry screening the mother, Shanique Gar, reports: "Salas Act 04-22 her behavior was threatening and out of control, very frightening for me. After first the first admission to [facility], was released, I believe, prematurely. Symptoms very apparent. My son and I urged her to voluntarily admit herself back into treatment, over the last 2 weeks and she refused due to her schizophrenia. Despite taking all her medications prescribed, she continues to exhibit symptoms including: delusions, paranoia and does not be in the present most of the time. She hears voice. As per family members the patient has been very disorganized, acting erratically at home, noncompliant with medications, very disruptive, is sleeping poorly, talking to herself. Also her mother clarifies that the patient has been saying that she is hearing voices. 07/05/17 Above note dictated by Dr. Redmond reviewed and agreed with. Patient is admitted to the [address] Redmond. He has done H&P. Dr. Redmond is also done the first opinion petition supporting Salas act. Patient seen by me with nurse marian, patient acknowledges increased paranoia anger irritability lability related plan express towards her family of origin. She denies suicidality she is vague about voices. At this time I feel patient does meet criteria for involuntary psychiatric hospitalization of the Salas act. Thus I' ll cosign second opinion petition supporting Salas act Past Family Social History Coded Allergies: No Known Allergies (Unverified , 07/04/17) Active Scripts Metformin (Glucophage) 500 Mg Tab, 500 MG PO DAILY for Blood Sugar Management for 15 Days, #15 TAB 1 Refill Prov:Terry Justin MD 05/29/17 Ziprasidone (Geodon) 60 Mg Cap, 120 MG PO BIDPC for Mental Health for 15 Days, CAP 1 Refill Prov:Terry Justin MD 05/29/17 Reported Medications Nicotine Patch (Nicoderm CQ Patch) 14 Mg/24 Hr Patch, 14 MG T-DERMAL DAILY for Smoking Cessation, #30 PATCH 0 Refills 07/04/17 Chlorhexidine Gluconate (Mouth) Liq (Chlorhexidine Gluconate (Mouth) Liq) 0.12% Soln, 15 ML SWISH-SPIT BID, #473 ML 0 Refills 07/04/17 Lamotrigine (Lamotrigine) 100 Mg Tab, 100 MG PO HS for MENTAL HEALTH, #30 TAB 0 Refills 07/04/17 Cefuroxime (Ceftin) 250 Mg Tab, 250 MG PO BID, TAB 07/04/17 Discontinued Scripts Lamotrigine (Lamictal) 25 Mg Tab, 25 MG PO HS for Mental Health for 15 Days, TAB 1 Refill Prov:Terry Justin MD 06/10/17 Clotrimazole Topical (Clotrimazole AF Topical) 1% Cream, 1 APPLIC TOPICAL Q12HR for Health, #1 TUBE 1 Refill Apply to right foot. Prov:Terry Justin MD 06/06/17 Zolpidem (Ambien) 10 Mg Tab, 10 MG PO HS Y for INSOMNIA for 15 Days, TAB 1 Refill Prov:Terry Justin MD 05/29/17 Current Medications Medications (Trade) Dose Ordered Sig/William Route Start Time Stop Time Status Last Admin (Glucophage) 500 mg DAILY PO 07/05/17 12:15 (Geodon) 120 mg BIDPC PO 07/05/17 18:00 (Ativan) 1 mg Q6H PRN PO 07/05/17 12:15 (Ativan Inj) 1 mg Q6H PRN IM 07/05/17 12:15 (Ativan) 0.5 mg Q12H PRN PO 07/05/17 12:15 (Ativan Inj) 0.5 mg Q12H PRN IM 07/05/17 12:15 (Tylenol) 650 mg Q4H PRN PO 07/05/17 12:15 (Milk Of Magnesia Liq) 30 ml DAILY PRN PO 07/05/17 12:15 (Mag-Al Plus Susp Liq) 30 ml Q6H PRN PO 07/05/17 12:15 (Habitrol 21 Mg Patch.24 Hr) 1 patch DAILY T-DERMAL 07/06/17 09:00 Patient's Strengths (min. 2) Social support, establish outpatient care Physical Exam Vital Signs Vital Signs Date Time Temp Pulse Resp B/P (MAP) Pulse Ox O2 Delivery O2 Flow Rate FiO2 07/05/17 12:31 97.5 62 18 96/58 (71) 99 07/05/17 10:00 Room Air Lab Results Test 07/04/17 17:30 White Blood Count 11.3 TH/MM3 Red Blood Count 4.53 MIL/MM3 Hemoglobin 13.7 GM/DL Hematocrit 40.4 % Mean Corpuscular Volume 89.2 FL Mean Corpuscular Hemoglobin 30.1 PG Mean Corpuscular Hemoglobin Concent 33.8 % Red Cell Distribution Width 13.7 % Platelet Count 337 TH/MM3 Mean Platelet Volume 8.1 FL Neutrophils (%) (Auto) 42.3 % Lymphocytes (%) (Auto) 46.9 % Monocytes (%) (Auto) 9.2 % Eosinophils (%) (Auto) 0.8 % Basophils (%) (Auto) 0.8 % Neutrophils # (Auto) 4.8 TH/MM3 Lymphocytes # (Auto) 5.3 TH/MM3 Monocytes # (Auto) 1.0 TH/MM3 Eosinophils # (Auto) 0.1 TH/MM3 Basophils # (Auto) 0.1 TH/MM3 CBC Comment AUTO DIFF Differential Comment AUTO DIFF CONFIRMED Platelet Estimate NORMAL Platelet Morphology Comment NORMAL Urine Color LIGHT-YELLOW Urine Turbidity HAZY Urine pH 5.5 Urine Specific [place] 1.009 Urine Protein NEG mg/dL Urine Glucose (UA) NEG mg/dL Urine Ketones NEG mg/dL Urine Occult Blood NEG Urine Nitrite NEG Urine Bilirubin NEG Urine Urobilinogen LESS THAN 2.0 MG/DL Urine Leukocyte Esterase NEG Urine RBC LESS THAN 1 /hpf Urine WBC LESS THAN 1 /hpf Urine Squamous Epithelial Cells 18 /hpf Urine Bacteria OCC /hpf Urine Mucus FEW /lpf Microscopic Urinalysis Comment CULT NOT INDICATED Blood Urea Nitrogen 12 MG/DL Creatinine 0.85 MG/DL Random Glucose 100 MG/DL Total Protein 7.6 GM/DL Albumin 3.9 GM/DL Calcium Level 9.8 MG/DL Alkaline Phosphatase 59 U/L Aspartate Amino Transf (AST/SGOT) 20 U/L Alanine Aminotransferase (ALT/SGPT) 22 U/L Total Bilirubin 0.1 MG/DL Sodium Level 140 MEQ/L Potassium Level 4.0 MEQ/L Chloride Level 108 MEQ/L Carbon Dioxide Level 21.3 MEQ/L Anion Gap 11 MEQ/L Estimat Glomerular Filtration Rate 70 ML/MIN Urine Opiates Screen NEG Urine Barbiturates Screen NEG Urine Amphetamines Screen NEG Urine Benzodiazepines Screen NEG Urine Cocaine Screen NEG Urine Cannabinoids Screen NEG Mental Status Examination Appearance: Disheveled Consciousness: Alert Orientation: x4 Motor Activity: Abnormal gait Speech: Unremarkable Fund of Knowledge: Adequate Memory: Unremarkable Mood: Appropriate, Anxious, Irritable Affect: Labile Thought Process & Associations: Goal directed, Disorganized, Other Thought Content: Bizarre thinking, Preoccupations, Delusional, Obsessions Hallucination Type: Auditory Delusion Type: Paranoid Suicidal Ideation: No Suicidal Plan: No Suicidal Intention: No Homicidal Ideation: No Homicidal Plan: No Homicidal Intention: No Insight: Poor Judgment: Poor Assessment & Plan Problem List: (1) Schizophrenia ICD Codes: F20.9 - Schizophrenia, unspecified Assessment & Plan Estimated LOS: Rafa Navarrete MD Jul 05, 2017 13:48
[2017-07-05] MEDS: ZIPRASIDONE HCL 60 MG CAP PO SCH (18:00)
[2017-07-05] MEDS: LORazepam 1 MG TAB PO PRN (22:29)
[2017-07-06 05:35] VITALS: BP 85/48; PULSE 61; RESP 16; TEMP 98.1; O2SAT 96
[2017-07-06 07:15] VITALS: BP 100/53; PULSE 65; RESP 16; O2SAT 96
[2017-07-06] MEDS: ZIPRASIDONE HCL 60 MG CAP PO SCH ×2 (08:36→17:21)
[2017-07-06] MEDS: metFORMIN HCL 500 MG TAB PO SCH (08:37)
[2017-07-06] MEDS: NICOTINE 21 MG/24 HR PATCH T-DERMAL SCH (08:37)
[2017-07-06 09:55] LABS: BICARBONATE 21.6 MEQ/L (21.0-32.0); BLOOD UREA NITROGEN 11 MG/DL (7-18); CALCIUM 9.9 MG/DL (8.5-10.1); CHLORIDE 109 MEQ/L (98-107); CREATININE 0.86 MG/DL (0.50-1.00); GLOMERULAR FILTRATION RATE 69 ML/MIN (>89); GLUCOSE,RANDOM 138 MG/DL (74-106); SODIUM (NA) 142 MEQ/L (136-145)
[2017-07-06 09:57] LABS: CHOLESTEROL 138 MG/DL (120-200); TRIGLYCERIDES 161 MG/DL (42-150)
[2017-07-06 09:58] LABS: HDL CHOLESTEROL 32.8 MG/DL (40.0-60.0); LDL CHOLESTEROL 73 MG/DL (0-99)
[2017-07-06 11:50] LABS: HEMOGLOBIN A1C 6.3 % (4.3-6.0)
--- NOTE | 2017-07-06 14:15 | HHI.PYPN ---
Subjective Remarks Patient was seen and case discussed with nursing. Patient finds reasons for admission, call and is laughing throughout. She admits to threatening behavior with her brother for admission.'s poor insight into her history medications. He is now compliant with medications and tolerating them well no EPS. Denies suicidal or homicidal ideation intent or plan. Continues to deny auditory visual hallucinations Mental Status Examination Appearance: Disheveled Consciousness: Alert Orientation: x4 Motor Activity: Abnormal gait Speech: Unremarkable Fund of Knowledge: Adequate Memory: Unremarkable Mood: Anxious Affect: Labile Thought Process & Associations: Disorganized Thought Content: Bizarre thinking, Preoccupations, Delusional, Obsessions Hallucination Type: Auditory (denies) Delusion Type: Paranoid Suicidal Ideation: No Suicidal Plan: No Suicidal Intention: No Homicidal Ideation: No Homicidal Plan: No Homicidal Intention: No Insight: Poor Judgment: Poor Results Labs Test 07/06/17 08:40 Blood Urea Nitrogen 11 MG/DL Creatinine 0.86 MG/DL Random Glucose 138 MG/DL Calcium Level 9.9 MG/DL Sodium Level 142 MEQ/L Potassium Level 3.9 MEQ/L Chloride Level 109 MEQ/L Carbon Dioxide Level 21.6 MEQ/L Anion Gap 11 MEQ/L Estimat Glomerular Filtration Rate 69 ML/MIN Hemoglobin A1c 6.3 % Triglycerides Level 161 MG/DL Cholesterol Level 138 MG/DL LDL Cholesterol 73 MG/DL HDL Cholesterol 32.8 MG/DL Cholesterol/HDL Ratio 4.20 RATIO Vitals/IOs Vital Signs Date Time Temp Pulse Resp B/P (MAP) Pulse Ox O2 Delivery O2 Flow Rate FiO2 07/06/17 07:15 65 16 100/53 (69) 96 07/06/17 05:35 98.1 07/05/17 10:00 Room Air Assessment & Plan Problem List: (1) Schizophrenia ICD Codes: F20.9 - Schizophrenia, unspecified Assessment & Plan Continue current treatment plan Justification for Cont. Inpt. Patient would decompensate in a less restrictive setting Jimmy Pace DO Jul 06, 2017 14:15
[2017-07-06 18:22] VITALS: BP 136/70; PULSE 82; RESP 16; TEMP 98; O2SAT 99
[2017-07-06] MEDS: LORazepam 1 MG TAB PO PRN (21:27)
[2017-07-07 04:52] VITALS: BP 110/70; PULSE 57; RESP 18; TEMP 98; O2SAT 98
[2017-07-07] MEDS: metFORMIN HCL 500 MG TAB PO SCH (08:21)
[2017-07-07] MEDS: NICOTINE 21 MG/24 HR PATCH T-DERMAL SCH (08:21)
[2017-07-07] MEDS: ZIPRASIDONE HCL 60 MG CAP PO SCH ×2 (08:21→17:10)
--- NOTE | 2017-07-07 10:38 | HHI.PYPN ---
Subjective Remarks Patient was seen and case discussed with nursing. Per nursing patient has been intrusive at times with other patients. However, she has not had any outbursts or agitation. She is smiling and laughing to herself throughout the interview reviewing her stay here as comical. Denies auditory visual hallucinations. Had a bizarre statement flies coming out of her feet Mental Status Examination Appearance: Disheveled Consciousness: Alert Orientation: x4 Motor Activity: Abnormal gait Speech: Unremarkable Fund of Knowledge: Adequate Memory: Unremarkable Mood: Anxious Affect: Labile Thought Process & Associations: Disorganized Thought Content: Bizarre thinking, Preoccupations, Delusional, Obsessions Hallucination Type: Auditory (denies) Delusion Type: Paranoid Suicidal Ideation: No Suicidal Plan: No Suicidal Intention: No Homicidal Ideation: No Homicidal Plan: No Homicidal Intention: No Insight: Poor Judgment: Poor Results Vitals/IOs Vital Signs Date Time Temp Pulse Resp B/P (MAP) Pulse Ox O2 Delivery O2 Flow Rate FiO2 07/07/17 04:52 98.0 57 18 110/70 (83) 98 07/05/17 10:00 Room Air Assessment & Plan Problem List: (1) Schizophrenia ICD Codes: F20.9 - Schizophrenia, unspecified Assessment & Plan Continue current treatment plan Justification for Cont. Inpt. Patient will decompensate in a less restrictive setting Jimmy Pace DO Jul 07, 2017 10:38
[2017-07-07] MEDS: ACETAMINOPHEN 325 MG TAB PO PRN (17:20)
[2017-07-07] MEDS: LORazepam 1 MG TAB PO PRN (21:37)
[2017-07-08 05:29] VITALS: BP 123/66; PULSE 61; RESP 16; TEMP 97.8; O2SAT 96
[2017-07-08] MEDS: metFORMIN HCL 500 MG TAB PO SCH (08:39)
[2017-07-08] MEDS: ZIPRASIDONE HCL 60 MG CAP PO SCH ×2 (08:39→16:31)
[2017-07-08] MEDS: NICOTINE 21 MG/24 HR PATCH T-DERMAL SCH (08:40)
--- NOTE | 2017-07-08 14:12 | HHI.PYPN ---
Subjective Remarks The patient was seen today for psychiatric reevaluation. The patient was discussed with nurse in Charge Lore. On evaluation the patient is found finishing her breakfast. Patient reports feeling much better, requesting to be discharged. She continues to have an elevated affect, laughing inappropriately frequently, talkative, at times disorganized. He also presents paranoia, at some point she looks at the medical student asking him if he has a camera in his pocket. She has been compliant with medications, she does present some level of restlessness and likely akathisia. The patient is oriented 3, she denies suicidal and homicidal ideation, she denies visual and auditory hallucinations. As per nurses the patient has been intrusive, hyperactive in the unit, at times disorganized and needs redirection. Mental Status Examination Appearance: Disheveled Consciousness: Alert Orientation: x4 Motor Activity: Abnormal gait Speech: Unremarkable Fund of Knowledge: Adequate Memory: Unremarkable Mood: Anxious Affect: Labile Thought Process & Associations: Disorganized Thought Content: Bizarre thinking, Preoccupations, Delusional, Obsessions Hallucination Type: Auditory (denies) Delusion Type: Paranoid Suicidal Ideation: No Suicidal Plan: No Suicidal Intention: No Homicidal Ideation: No Homicidal Plan: No Homicidal Intention: No Insight: Poor Judgment: Poor Results Vitals/IOs Vital Signs Date Time Temp Pulse Resp B/P (MAP) Pulse Ox O2 Delivery O2 Flow Rate FiO2 07/08/17 05:29 97.8 61 16 123/66 (85) 96 07/05/17 10:00 Room Air Assessment & Plan Problem List: (1) Schizophrenia ICD Codes: F20.9 - Schizophrenia, unspecified Assessment & Plan: Will add lamotrigine 100 mg twice a day for manic symptoms. Will add propranolol 10 mg 3 times a day for akathisia. Will restart Ceftin 250 g twice a day for 10 days as per recommended by PCP in outpatient basis. Brief supportive psychotherapy, psychoeducation and motivation provided. Assessment & Plan Estimated LOS: days Justification for Cont. Inpt. Patient continues to be disorganized, acutely manic, delusional and psychotic, she needs to continue psychiatric hospitalization for stabilization Venu Fitzpatrick MD Jul 08, 2017 14:12
[2017-07-08 17:47] VITALS: BP 149/78; PULSE 75; RESP 16; TEMP 98.2; O2SAT 98
[2017-07-08] MEDS ORDERED: lamoTRIgine 100 MG TAB PO SCH ×2 (21:00)
[2017-07-08] MEDS: PROPRANOLOL HCL 10 MG TAB PO SCH (21:03)
[2017-07-08] MEDS: CEFUROXIME AXETIL 250 MG TAB PO SCH (21:06)
[2017-07-08] MEDS: ACETAMINOPHEN 325 MG TAB PO PRN (23:06)
[2017-07-09 06:09] VITALS: BP 127/82; PULSE 78; RESP 18; TEMP 98.2
[2017-07-09] MEDS: PROPRANOLOL HCL 10 MG TAB PO SCH ×3 (06:22→20:25)
[2017-07-09] MEDS: CEFUROXIME AXETIL 250 MG TAB PO SCH ×2 (08:12→20:25)
[2017-07-09] MEDS: ZIPRASIDONE HCL 60 MG CAP PO SCH ×2 (08:12→16:43)
[2017-07-09] MEDS: NICOTINE 21 MG/24 HR PATCH T-DERMAL SCH (08:12)
[2017-07-09] MEDS: metFORMIN HCL 500 MG TAB PO SCH (08:12)
[2017-07-09 13:34] VITALS: BP 165/93; PULSE 85
--- NOTE | 2017-07-09 13:38 | HHI.PYPN ---
Subjective Remarks The patient was seen today for psychiatric reevaluation along with medical student Horace and nurse in charge Lore, on psychiatric evaluation the patient is restless, continues to be intrusive, with elevated affect and delusional. The patient says that her name is Queen Shanique the first, she became very paranoid toward the medical student stating that "he has been looking at me in a very inappropriate and sexual way". As per nursing charge the patient has been kind of agitated in the unit, calm and very often to the nurses station to knock in the window with no real purpose. As per conversation with the mother, the patient has been the lamotrigine before, and he has not been effective, lamotrigine has been recently discontinued by outpatient psychiatrist. Mental Status Examination Appearance: Disheveled Consciousness: Alert Orientation: x4 Motor Activity: Abnormal gait Speech: Unremarkable Fund of Knowledge: Adequate Memory: Unremarkable Mood: Anxious Affect: Labile Thought Process & Associations: Disorganized Thought Content: Bizarre thinking, Preoccupations, Delusional, Obsessions Hallucination Type: Auditory (denies) Delusion Type: Paranoid Suicidal Ideation: No Suicidal Plan: No Suicidal Intention: No Homicidal Ideation: No Homicidal Plan: No Homicidal Intention: No Insight: Poor Judgment: Poor Results Vitals/IOs Vital Signs Date Time Temp Pulse Resp B/P (MAP) Pulse Ox O2 Delivery O2 Flow Rate FiO2 07/09/17 06:09 98.2 78 18 127/82 (97) 07/08/17 17:47 98 07/05/17 10:00 Room Air Assessment & Plan Problem List: (1) Schizophrenia ICD Codes: F20.9 - Schizophrenia, unspecified Assessment & Plan: Patient continues to be acutely manic, with elevated mood and affect, rapid speech, disruptive behavior in the unit, delusions of grandiosity. Discontinue lamotrigine. Start Depakote 250 mg twice a day for mood stabilization and valdemar. Brief supportive psychotherapy provided. Assessment & Plan Estimated LOS: days Justification for Cont. Inpt. Patient is acutely manic/psychotic Venu Fitzpatrick MD Jul 09, 2017 13:38
[2017-07-09] MEDS: DIVALPROEX SODIUM E.R. 250 MG TAB PO SCH ×2 (14:30→20:25)
--- NOTE | 2017-07-09 14:59 | PD.CONS ---
HPI Service [facility] Hospitalists Consult Requested By Dr Pollard Reason for Consult Medical management. Primary Care Physician Unknown Diagnoses: History of Present Illness This is a 51-year-old wild female with history of schizophrenia who had been recently discharged from [facility] on who presents to [facility] under an exparte. As per review of psychiatry notes the patient stated that she was taking her psych medications but they stopped working and then she became more aggressive towards her brother. The patient denies suicidal or homicidal ideation. Denies cp/sob, fevers or chills. Denies abdominal pain, nausea or vomiting. Review of Systems As per HPI, other systems reviewed by me and negative. Past Family Social History Allergies: Coded Allergies: No Known Allergies (Unverified , 07/04/17) Past Medical History Type 2 diabetes, schizoaffective disorder. Past Surgical History Not known Reported Medications Reported Meds & Active Scripts Active Glucophage (Metformin HCl) 500 Mg Tab 500 Mg PO DAILY 15 Days Geodon (Ziprasidone) 60 Mg Cap 120 Mg PO BIDPC 15 Days Reported Nicoderm CQ Patch (Nicotine) 14 Mg/24 Hr Patch 14 Mg T-DERMAL DAILY Chlorhexidine Gluconate (Mouth) Liq (Chlorhexidine Gluconate) 0.12% Soln 15 Ml SWISH-SPIT BID Lamotrigine 100 Mg Tab 100 Mg PO HS Ceftin (Cefuroxime Axetil) 250 Mg Tab 250 Mg PO BID Active Ordered Medications Current Medications Medications (Trade) Dose Ordered Sig/William Route Start Time Stop Time Status Last Admin (Glucophage) 500 mg DAILY PO 07/05/17 12:15 07/09/17 08:12 (Geodon) 120 mg BIDPC PO 07/05/17 18:00 07/09/17 08:12 (Ativan) 1 mg Q6H PRN PO 07/05/17 12:15 07/07/17 21:37 (Ativan Inj) 1 mg Q6H PRN IM 07/05/17 12:15 (Ativan) 0.5 mg Q12H PRN PO 07/05/17 12:15 07/08/17 21:04 (Ativan Inj) 0.5 mg Q12H PRN IM 07/05/17 12:15 (Tylenol) 650 mg Q4H PRN PO 07/05/17 12:15 07/08/17 23:06 (Milk Of Magnesia Liq) 30 ml DAILY PRN PO 07/05/17 12:15 (Mag-Al Plus Susp Liq) 30 ml Q6H PRN PO 07/05/17 12:15 (Habitrol 21 Mg Patch.24 Hr) 1 patch DAILY T-DERMAL 07/06/17 09:00 07/09/17 08:12 (Ceftin) 250 mg BID PO 07/08/17 21:00 07/09/17 08:12 (Inderal) 10 mg Q8HR PO 07/08/17 22:00 07/09/17 14:00 (Depakote Er) 250 mg BID PO 07/09/17 14:30 07/09/17 14:30 Family History History of type 2 diabetes. Social History Denies alcohol tobacco use. Physical Exam Vital Signs Vital Signs Date Time Temp Pulse Resp B/P (MAP) Pulse Ox O2 Delivery O2 Flow Rate FiO2 07/09/17 13:34 85 165/93 (117) 07/09/17 06:09 98.2 78 18 127/82 (97) 07/08/17 17:47 98.2 75 16 149/78 (101) 98 Physical Exam GENERAL: Obese, apprehensive about touch SKIN: Warm and dry, two dry flaky spots on right foot, 0.6cm circular rash on 1st MP bunion, 1.5cm circular rash with flakey border in right arch HEAD: Normocephalic. EYES: No scleral icterus. No injection or drainage. NECK: Supple, trachea midline. No JVD or lymphadenopathy. CARDIOVASCULAR: Regular rate and rhythm without murmurs, gallops, or rubs. RESPIRATORY: Breath sounds equal bilaterally. No accessory muscle use. GASTROINTESTINAL: Abdomen soft, non-tender, nondistended. EXTREMITIES: No cyanosis, or edema. NEUROLOGICAL: Awake, alert, and oriented x 3. Non-focal. Result Diagram: 07/06/17 0840 Assessment and Plan Problem List: (1) Other schizoaffective disorders ICD Code: F25.8 - Other schizoaffective disorders Plan: Management as per psychiatry. (2) Diabetes type 2, controlled ICD Code: E11.9 - Type 2 diabetes mellitus without complications Plan: Hemoglobin A1c 6.3. Continue metformin. (3) Elevated WBCs ICD Code: D72.829 - Elevated white blood cell count, unspecified Plan: Patient has leukocytosis which has improved. WBC count on admission 21K , it has trended down to 11.3. Patient does not have any fevers or chills. Chest x-ray reviewed by me without any acute cardiopulmonary abnormality. DC antibiotics monitor for signs of infection. Assessment and Plan DVT prophylaxis: Ambulation. Code Status Full code Discussed Condition With Girish Hernandez MD Jul 09, 2017 14:59
[2017-07-09 18:10] VITALS: BP 165/93; PULSE 85; RESP 20; TEMP 98.5; O2SAT 98
[2017-07-09] MEDS: ALUMINUM/MAGNESIUM/SIMETH 30 ML CUP PO PRN (21:32)
[2017-07-09] MEDS: LORazepam 1 MG TAB PO PRN (22:19)
[2017-07-10 05:34] VITALS: BP 118/75; PULSE 81; RESP 18; TEMP 98.2; O2SAT 96
[2017-07-10] MEDS: PROPRANOLOL HCL 10 MG TAB PO SCH ×2 (05:41→20:46)
[2017-07-10 06:04] VITALS: BP 118/75; PULSE 81; RESP 18; TEMP 98.2; O2SAT 94
[2017-07-10] MEDS: metFORMIN HCL 500 MG TAB PO SCH (08:19)
[2017-07-10] MEDS: DIVALPROEX SODIUM E.R. 250 MG TAB PO SCH (08:19)
[2017-07-10] MEDS: ZIPRASIDONE HCL 60 MG CAP PO SCH ×2 (08:19→17:01)
[2017-07-10] MEDS: CEFUROXIME AXETIL 250 MG TAB PO SCH (08:19)
[2017-07-10] MEDS: NICOTINE 21 MG/24 HR PATCH T-DERMAL SCH (08:19)
--- NOTE | 2017-07-10 13:22 | HHI.PYPN ---
Subjective Remarks The patient was seen today for psychiatric reevaluation. The patient is found in recreational area of the unit. She is calm, cooperative, seems to be a little be less restless and intrusive that yesterday. She reports being compliant with her medications, good mood, good sleep at night, good appetite. She denies suicidal and homicidal ideation, she denies visual and auditory hallucinations. At times becomes disorganized, with a tangential thought process and rapid speech, but redirectable. As per nursing charge, the patient in the last 24 hour has been very restless in the unit, disruptive in the unit, had to be redirected multiple times. But compliant with medications. Nurse in charge also reported the patient has been presenting bilateral episodic tremors in her upper extremities. Mental Status Examination Appearance: Disheveled Consciousness: Alert Orientation: x4 Motor Activity: Abnormal gait Speech: Unremarkable Fund of Knowledge: Adequate Memory: Unremarkable Mood: Anxious Affect: Labile Thought Process & Associations: Disorganized Thought Content: Bizarre thinking, Preoccupations, Delusional, Obsessions Hallucination Type: Auditory (denies) Delusion Type: Paranoid Suicidal Ideation: No Suicidal Plan: No Suicidal Intention: No Homicidal Ideation: No Homicidal Plan: No Homicidal Intention: No Insight: Poor Judgment: Poor Results Vitals/IOs Vital Signs Date Time Temp Pulse Resp B/P (MAP) Pulse Ox O2 Delivery O2 Flow Rate FiO2 07/10/17 06:04 98.2 81 18 118/75 (89) 94 Intake and Output 07/10/17 07/10/17 07/11/17 08:00 16:00 00:00 Intake Total 240 ml Balance 240 ml Assessment & Plan Problem List: (1) Schizophrenia ICD Codes: F20.9 - Schizophrenia, unspecified (2) Schizoaffective disorder ICD Codes: F25.9 - Schizoaffective disorder, unspecified Assessment & Plan: Patient continues to show rapid speech, intrusive and disruptive behavior, paranoia, restlessness. She also reports bilateral episodic hand tremors. We will increase Depakote to 500 mg twice a day for mood stabilization, add benztropine 1 mg twice a day for parkinsonism. Assessment & Plan Estimated LOS: days Justification for Cont. Inpt. Patient needs to continue psychiatric hospitalization for stabilization. Venu Fitzpatrick MD Jul 10, 2017 13:22
--- NOTE | 2017-07-10 19:09 | HHI.PR ---
Subjective Remarks Patient has no complaints Denies cp/sob Afebrile. Objective Vitals Vital Signs Date Time Temp Pulse Resp B/P (MAP) Pulse Ox O2 Delivery O2 Flow Rate FiO2 07/10/17 06:04 98.2 81 18 118/75 (89) 94 07/10/17 05:34 98.2 81 18 118/75 (89) 96 I/O 07/09/17 07/09/17 07/09/17 07/10/17 07/10/17 07/10/17 07:00 15:00 23:00 07:00 15:00 23:00 Intake Total 360 ml 240 ml Balance 360 ml 240 ml Intake Oral 240 ml Tube Feeding 360 ml Result Diagram: 07/06/17 0840 Objective Remarks AAox3 Clear lungs S1S2 (+) RRR, no MRG Abdomen, soft, nt, nd no edema in lower extremities Medications and IVs Current Medications Medications (Trade) Dose Ordered Sig/William Route Start Time Stop Time Status Last Admin (Glucophage) 500 mg DAILY PO 07/05/17 12:15 07/10/17 08:19 (Geodon) 120 mg BIDPC PO 07/05/17 18:00 07/10/17 17:01 (Ativan) 1 mg Q6H PRN PO 07/05/17 12:15 07/09/17 22:19 (Ativan Inj) 1 mg Q6H PRN IM 07/05/17 12:15 (Ativan) 0.5 mg Q12H PRN PO 07/05/17 12:15 07/08/17 21:04 (Ativan Inj) 0.5 mg Q12H PRN IM 07/05/17 12:15 (Tylenol) 650 mg Q4H PRN PO 07/05/17 12:15 07/08/17 23:06 (Milk Of Magnesia Liq) 30 ml DAILY PRN PO 07/05/17 12:15 (Mag-Al Plus Susp Liq) 30 ml Q6H PRN PO 07/05/17 12:15 07/09/17 21:32 (Habitrol 21 Mg Patch.24 Hr) 1 patch DAILY T-DERMAL 07/06/17 09:00 07/10/17 08:19 (Depakote Er) 500 mg BID PO 07/10/17 21:00 07/10/17 20:46 (Inderal) 10 mg Q12HR PO 07/10/17 21:00 07/10/17 20:46 (Cogentin) 1 mg Q12HR PO 07/10/17 21:00 07/10/17 20:46 Urinary Catheter: No Vascular Central Line Catheter: No A/P Problem List: (1) Other schizoaffective disorders ICD Code: F25.8 - Other schizoaffective disorders Plan: Management as per psychiatry. (2) Diabetes type 2, controlled ICD Code: E11.9 - Type 2 diabetes mellitus without complications Plan: Hemoglobin A1c 6.3. Continue metformin. (3) Elevated WBCs ICD Code: D72.829 - Elevated white blood cell count, unspecified Plan: Patient has leukocytosis which has improved. WBC count on admission 21K , it has trended down to 11.3. Patient does not have any fevers or chills. Chest x-ray reviewed by me without any acute cardiopulmonary abnormality. DC antibiotics monitor for signs of infection. (4) HTN (hypertension) ICD Code: I10 - Essential (primary) hypertension Plan: BP noticed to be elevated Propanolol started by primary BP better monitor vs Discharge Planning Will sign off please reconsult as needed Problem Qualifiers (1) HTN (hypertension): Qualified Codes: I10 - Essential (primary) hypertension Girish Pedraza MD Jul 10, 2017 19:09
[2017-07-10] MEDS: DIVALPROEX SODIUM E.R. 500 MG TAB PO SCH (20:46)
[2017-07-10] MEDS: BENZTROPINE MESYLATE 1 MG TAB PO SCH (20:46)
[2017-07-11 05:47] VITALS: BP 94/59; PULSE 65; RESP 18; TEMP 98.4; O2SAT 98
[2017-07-11] MEDS: ZIPRASIDONE HCL 60 MG CAP PO SCH ×2 (08:02→17:21)
[2017-07-11] MEDS: PROPRANOLOL HCL 10 MG TAB PO SCH ×2 (08:02→20:59)
[2017-07-11] MEDS: DIVALPROEX SODIUM E.R. 500 MG TAB PO SCH ×2 (08:02→20:59)
[2017-07-11] MEDS: NICOTINE 21 MG/24 HR PATCH T-DERMAL SCH (08:03)
[2017-07-11] MEDS: BENZTROPINE MESYLATE 1 MG TAB PO SCH ×2 (08:03→21:00)
[2017-07-11] MEDS: metFORMIN HCL 500 MG TAB PO SCH (08:03)
[2017-07-11 08:41] LABS: HEMOGLOBIN 14.4 GM/DL (11.6-15.3); MEAN CELL VOLUME 88.4 FL (80.0-100.0); MEAN CORPUSCULAR HEMOGLOBIN 29.6 PG (27.0-34.0); MEAN CORPUSCULAR HGB CONC 33.5 % (32.0-36.0); PLATELET COUNT 380 TH/MM3 (150-450); RED BLOOD COUNT 4.86 MIL/MM3 (4.00-5.30); RED CELL DISTRIBUTION WIDTH 13.5 % (11.6-17.2); WHITE BLOOD COUNT 10.2 TH/MM3 (4.0-11.0)
--- NOTE | 2017-07-11 13:00 | HHI.PYPN ---
Subjective Remarks Patient was seen today for psychiatric reevaluation, she was also singing [employer], patient presented with elevated mood, colorful clothes, very talkative, he stated that she feels great, very happy, full of energy. 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 She denies suicidal and homicidal ideation, she denies visual and auditory hallucinations. The patient has been compliant with medications, no significant side effects. Her bilateral hand tremors seems to be under control now. Review of Systems Psychiatric: COMPLAINS OF: Delusions Mental Status Examination Appearance: Disheveled Consciousness: Alert Orientation: x4 Motor Activity: Abnormal gait Speech: Unremarkable Fund of Knowledge: Adequate Memory: Unremarkable Mood: Anxious Affect: Labile Thought Process & Associations: Disorganized Thought Content: Bizarre thinking, Preoccupations, Delusional, Obsessions Hallucination Type: Auditory (denies) Delusion Type: Paranoid, Other (grandeour) Suicidal Ideation: No Suicidal Plan: No Suicidal Intention: No Homicidal Ideation: No Homicidal Plan: No Homicidal Intention: No Insight: Poor Judgment: Poor Results Labs Test 07/11/17 07:55 White Blood Count 10.2 TH/MM3 Red Blood Count 4.86 MIL/MM3 Hemoglobin 14.4 GM/DL Hematocrit 43.0 % Mean Corpuscular Volume 88.4 FL Mean Corpuscular Hemoglobin 29.6 PG Mean Corpuscular Hemoglobin Concent 33.5 % Red Cell Distribution Width 13.5 % Platelet Count 380 TH/MM3 Mean Platelet Volume 8.0 FL Vitals/IOs Vital Signs Date Time Temp Pulse Resp B/P (MAP) Pulse Ox O2 Delivery O2 Flow Rate FiO2 07/11/17 05:47 98.4 65 18 94/59 (71) 98 Intake and Output 07/11/17 07/11/17 07/12/17 08:00 16:00 00:00 Intake Total 600 ml Balance 600 ml Assessment & Plan Problem List: (1) Schizophrenia ICD Codes: F20.9 - Schizophrenia, unspecified (2) Schizoaffective disorder ICD Codes: F25.9 - Schizoaffective disorder, unspecified Assessment & Plan: Patient continues to be manic, with grander delusion, disruptive behavior in the unit. Depakote was increased yesterday to 500 mg twice a day. Tomorrow will order levels. Brief supportive psychotherapy, motivation psycho education provided. Assessment & Plan Estimated LOS: days Justification for Cont. Inpt. Patient is acutely psychotic, she needs to continue psychiatric hospitalization for stabilization. Venu Fitzpatrick MD Jul 11, 2017 13:00
[2017-07-11 17:47] VITALS: PULSE 69; RESP 20; TEMP 97.8; O2SAT 99
[2017-07-12 05:19] VITALS: PULSE 60; RESP 18; O2SAT 96
[2017-07-12] MEDS: NICOTINE 21 MG/24 HR PATCH T-DERMAL SCH (08:49)
[2017-07-12] MEDS: metFORMIN HCL 500 MG TAB PO SCH (08:51)
[2017-07-12] MEDS: BENZTROPINE MESYLATE 1 MG TAB PO SCH ×2 (08:51→21:00)
[2017-07-12] MEDS: DIVALPROEX SODIUM E.R. 500 MG TAB PO SCH ×2 (08:51→21:40)
[2017-07-12] MEDS: PROPRANOLOL HCL 10 MG TAB PO SCH ×2 (08:52→21:00)
[2017-07-12] MEDS: ZIPRASIDONE HCL 60 MG CAP PO SCH ×2 (09:00→17:53)
--- NOTE | 2017-07-12 13:10 | HHI.PYPN ---
Subjective Remarks The patient was seen today for psychiatric reevaluation. Patient was found in her room, she is calm, cooperative. She reports feeling much better today, reports good mood, denies anhedonia, hopelessness, helplessness, worthlessness, denies suicidal and homicidal ideation, denies visual and auditory hallucinations. At moments developed rapid speech, with some disorganized thought processes and paranoia, but usually redirectable. As per nurses, the patient continues to be disruptive in the unit, at times disorganized, but in general she is doing much better. Mental Status Examination Appearance: Disheveled Consciousness: Alert Orientation: x4 Motor Activity: Abnormal gait Speech: Unremarkable Fund of Knowledge: Adequate Memory: Unremarkable Mood: Anxious Affect: Labile Thought Process & Associations: Disorganized Thought Content: Bizarre thinking, Preoccupations, Delusional, Obsessions Hallucination Type: Auditory (denies) Delusion Type: Paranoid, Other (grandeour) Suicidal Ideation: No Suicidal Plan: No Suicidal Intention: No Homicidal Ideation: No Homicidal Plan: No Homicidal Intention: No Insight: Poor Judgment: Poor Results Vitals/IOs Vital Signs Date Time Temp Pulse Resp B/P (MAP) Pulse Ox O2 Delivery O2 Flow Rate FiO2 07/12/17 05:19 60 18 96 07/11/17 17:47 97.8 Intake and Output 07/12/17 07/12/17 07/13/17 08:00 16:00 00:00 Intake Total 360 ml Balance 360 ml Assessment & Plan Problem List: (1) Schizophrenia ICD Codes: F20.9 - Schizophrenia, unspecified (2) Schizoaffective disorder ICD Codes: F25.9 - Schizoaffective disorder, unspecified Assessment & Plan: Continue current psychotropic regimen. Will order Depakote level. Brief supportive psychotherapy provided. Assessment & Plan Estimated LOS: days Justification for Cont. Inpt. Patient has an elevated risk to decompensate at a lower level of care. Venu Fitzpatrick MD Jul 12, 2017 13:10
[2017-07-13 06:00] VITALS: BP 107/74; PULSE 80; RESP 18; TEMP 97.8; O2SAT 97
[2017-07-13] MEDS: ZIPRASIDONE HCL 60 MG CAP PO SCH ×2 (08:15→17:14)
[2017-07-13] MEDS: metFORMIN HCL 500 MG TAB PO SCH (08:15)
[2017-07-13] MEDS: BENZTROPINE MESYLATE 1 MG TAB PO SCH ×2 (08:15→21:30)
[2017-07-13] MEDS: PROPRANOLOL HCL 10 MG TAB PO SCH ×3 (08:15→21:30)
[2017-07-13] MEDS: NICOTINE 21 MG/24 HR PATCH T-DERMAL SCH (08:16)
[2017-07-13] MEDS: DIVALPROEX SODIUM E.R. 500 MG TAB PO SCH ×2 (08:16→21:30)
--- NOTE | 2017-07-13 15:51 | HHI.PYPN ---
Subjective Remarks Pt seen and discussed with staff. She remains labile and intrusive with poor impulse control but staff report that she is improving. She is observed responding to internal stimuli and is disorganized at times. RN reports that pt had a conversation w/ computer on medication cart. Yesterday she was removed from group due to intrusive behavior. Today she did better in AA meeting and was able to be redirected and complete group. Mental Status Examination Appearance: Disheveled Consciousness: Alert Orientation: x4 Motor Activity: Abnormal gait Speech: Unremarkable Fund of Knowledge: Adequate Memory: Unremarkable Mood: Anxious Affect: Labile Thought Process & Associations: Disorganized Thought Content: Bizarre thinking, Preoccupations, Delusional, Obsessions Hallucination Type: Auditory (denies) Delusion Type: Paranoid, Other (grandeour) Suicidal Ideation: No Suicidal Plan: No Suicidal Intention: No Homicidal Ideation: No Homicidal Plan: No Homicidal Intention: No Insight: Poor Judgment: Poor Results Labs Test 07/12/17 19:16 Valproic Acid (Depakene) Level 80 MCG/ML Vitals/IOs Vital Signs Date Time Temp Pulse Resp B/P (MAP) Pulse Ox O2 Delivery O2 Flow Rate FiO2 07/13/17 06:00 97.8 80 18 107/74 (85) 97 Assessment & Plan Problem List: (1) Schizophrenia ICD Codes: F20.9 - Schizophrenia, unspecified Assessment & Plan Continue current tx plan. Estimated LOS: days Justification for Cont. Inpt. impairments in reality testing Tia Sheriff MD Jul 13, 2017 15:51
[2017-07-14] MEDS: NICOTINE 21 MG/24 HR PATCH T-DERMAL SCH (09:00)
[2017-07-14 09:15] VITALS: BP 136/75; PULSE 72; RESP 18; TEMP 98.4; O2SAT 98
[2017-07-14] MEDS: PROPRANOLOL HCL 10 MG TAB PO SCH ×2 (09:15→21:00)
[2017-07-14] MEDS: metFORMIN HCL 500 MG TAB PO SCH (09:15)
[2017-07-14] MEDS: DIVALPROEX SODIUM E.R. 500 MG TAB PO SCH ×2 (09:15→21:00)
[2017-07-14] MEDS: ZIPRASIDONE HCL 60 MG CAP PO SCH ×2 (09:15→17:15)
[2017-07-14] MEDS: BENZTROPINE MESYLATE 1 MG TAB PO SCH ×2 (09:15→21:00)
--- NOTE | 2017-07-14 15:33 | HHI.PYPN ---
Subjective Remarks Pt seen and discussed with staff. She had a time-out on 2700 unit this morning due to getting agitated and engaging in aggressive posturing towards MHT She refused morning vitals. She remains paranoid and delusional but calmed after morning medication administration. Sleep is poor. Mental Status Examination Appearance: Disheveled Consciousness: Alert Orientation: x4 Motor Activity: Abnormal gait Speech: Unremarkable Fund of Knowledge: Adequate Memory: Unremarkable Mood: Anxious Affect: Labile Thought Process & Associations: Disorganized Thought Content: Bizarre thinking, Preoccupations, Delusional, Obsessions Hallucination Type: Auditory (denies) Delusion Type: Paranoid, Other (grandeour) Suicidal Ideation: No Suicidal Plan: No Suicidal Intention: No Homicidal Ideation: No Homicidal Plan: No Homicidal Intention: No Insight: Poor Judgment: Poor Results Vitals/IOs Vital Signs Date Time Temp Pulse Resp B/P (MAP) Pulse Ox O2 Delivery O2 Flow Rate FiO2 07/14/17 09:15 98.4 72 18 136/75 (95) 98 Assessment & Plan Problem List: (1) Schizophrenia ICD Codes: F20.9 - Schizophrenia, unspecified Assessment & Plan Continue current tx plan Estimated LOS: days Justification for Cont. Inpt. psychosis Tia Sheriff MD Jul 14, 2017 15:33
[2017-07-14] MEDS: PADIMATE (CHAPSTICK) 4.5 GM TUBE TOPICAL PRN ×2 (15:55→17:34)
[2017-07-14 17:04] VITALS: BP 109/58; PULSE 60; RESP 18; TEMP 97.7; O2SAT 98
[2017-07-14] MEDS: LORazepam 1 MG TAB PO PRN (21:00)
[2017-07-15 05:54] VITALS: BP 92/55; PULSE 62; RESP 20; TEMP 97.7; O2SAT 98
[2017-07-15] MEDS: LORazepam 1 MG TAB PO PRN (08:38)
[2017-07-15] MEDS: PROPRANOLOL HCL 10 MG TAB PO SCH ×2 (08:38→21:00)
[2017-07-15] MEDS: BENZTROPINE MESYLATE 1 MG TAB PO SCH ×2 (08:38→21:03)
[2017-07-15] MEDS: NICOTINE 21 MG/24 HR PATCH T-DERMAL SCH (08:39)
[2017-07-15] MEDS: ZIPRASIDONE HCL 60 MG CAP PO SCH (08:39)
[2017-07-15] MEDS: DIVALPROEX SODIUM E.R. 500 MG TAB PO SCH ×2 (08:39→21:04)
[2017-07-15] MEDS: metFORMIN HCL 500 MG TAB PO SCH (08:39)
[2017-07-15] MEDS: PADIMATE (CHAPSTICK) 4.5 GM TUBE TOPICAL PRN (09:20)
--- NOTE | 2017-07-15 12:24 | HHI.PYPN ---
Subjective Remarks Patient was seen today for psychiatric evaluation. Patient is disorganized, very paranoid, restless. When she saw me she started making accusations about me, telling me that I am conspiring with the nurses, but she was able to be de- escalated. As per nurses, the patient during the week has been very agitated, talking to herself, disorganized. He has been taking her medications, no significant side effects reported. Depakote level is 80 Review of Systems Except as stated in HPI: all other systems reviewed are Neg Mental Status Examination Appearance: Disheveled Consciousness: Alert Orientation: x4 Motor Activity: Abnormal gait Speech: Unremarkable Fund of Knowledge: Adequate Memory: Unremarkable Mood: Anxious Affect: Labile Thought Process & Associations: Disorganized Thought Content: Bizarre thinking, Preoccupations, Delusional, Obsessions Hallucination Type: Auditory (denies) Delusion Type: Paranoid, Other (grandeour) Suicidal Ideation: No Suicidal Plan: No Suicidal Intention: No Homicidal Ideation: No Homicidal Plan: No Homicidal Intention: No Insight: Poor Judgment: Poor Results Vitals/IOs Vital Signs Date Time Temp Pulse Resp B/P (MAP) Pulse Ox O2 Delivery O2 Flow Rate FiO2 07/15/17 05:54 97.7 62 20 92/55 (67) 98 Assessment & Plan Problem List: (1) Schizophrenia ICD Codes: F20.9 - Schizophrenia, unspecified Assessment & Plan: Patient remains acutely psychotic. Depakote level is 80. Patient continues to be psychotic in the spite of pain in the highest dose of Geodon for over a month. I will start to cross titrate Geodon with Risperdal, decrease Geodon to 80 mg twice daily, start Risperdal 1 mg twice daily. Assessment & Plan Estimated LOS: days Justification for Cont. Inpt. Patient is acutely psychotic, she needs to continue psychiatric hospitalization for stabilization Venu Fitzpatrick MD Jul 15, 2017 12:24
[2017-07-15] MEDS: ZIPRASIDONE HCL 80 MG CAP PO SCH (17:30)
[2017-07-15] MEDS: risperiDONE 1 MG TAB PO SCH (21:05)
[2017-07-16 06:30] VITALS: BP 101/55; PULSE 65; RESP 19; TEMP 98.2; O2SAT 95
[2017-07-16] MEDS: risperiDONE 1 MG TAB PO SCH ×2 (08:13→20:29)
[2017-07-16] MEDS: LORazepam 1 MG TAB PO PRN ×2 (08:13→18:42)
[2017-07-16] MEDS: DIVALPROEX SODIUM E.R. 500 MG TAB PO SCH ×2 (08:13→20:28)
[2017-07-16] MEDS: ZIPRASIDONE HCL 80 MG CAP PO SCH (08:13)
[2017-07-16] MEDS: metFORMIN HCL 500 MG TAB PO SCH (08:13)
[2017-07-16] MEDS: BENZTROPINE MESYLATE 1 MG TAB PO SCH ×2 (08:13→20:29)
[2017-07-16] MEDS: NICOTINE 21 MG/24 HR PATCH T-DERMAL SCH (08:14)
[2017-07-16] MEDS: PROPRANOLOL HCL 10 MG TAB PO SCH ×2 (08:14→20:29)
--- NOTE | 2017-07-16 14:06 | HHI.PYPN ---
Subjective Remarks The patient was seen today for psychiatric evaluation along with medical student. Patient was discussed with nurse in charge. On psychiatric evaluation the patient is found in activity room integrated in a group activity with counselor. The patient reports she has been doing much better since yesterday, reports good mood, good sleep, good level of energy, good appetite. Patient has been compliant with her medications, no significant side effects are visible or reported. Patient at times shows disorganized speech, inappropriate affect, paranoia, but she seems to be more organized than yesterday. Review of Systems Endocrine: DENIES: Abnorml menstrual pattern, Heat/cold intolerance, Polydipsia , Polyuria, Polyphagia Eyes: DENIES: Blurred vision, Diplopia, Eye inflammation, Eye pain, Vision loss , Photosensitivity, Double Vision Ears, nose, mouth, throat: DENIES: Tinnitus, Hearing loss, Vertigo, Nasal discharge, Oral lesions, Throat pain, Hoarseness, Ear Pain, Running Nose, Epistaxis, Sinus Pain, Toothache, Odynophagia Respiratory: DENIES: Apneas, Cough, Snoring, Wheezing, Hemoptysis, Sputum production, Shortness of breath Cardiovascular: DENIES: Chest pain, Palpitations, Syncope, Dyspnea on Exertion , PND, Lower Extremity Edema, Orthopnea, Claudication Gastrointestinal: DENIES: Abdominal pain, Black stools, Bloody stools, Constipation, Diarrhea, Nausea, Vomiting, Difficulty Swallowing, Anorexia Genitourinary: DENIES: Abnormal vaginal bleeding, Dysmenorrhea, Dyspareunia, Sexual dysfunction, Urinary frequency, Urinary incontinence, Urgency, Hematuria , Dysuria, Nocturia, Vaginal discharge Musculoskeletal: DENIES: Joint pain, Muscle aches, Stiffness, Joint Swelling, Back pain, Neck pain Integumentary: DENIES: Abnormal pigmentation, Pruritus, Rash, Nail changes, Breast masses, Breast skin changes, Nipple discharge Hematologic/lymphatic: DENIES: Bruising, Lymphadenopathy Immunologic/allergic: DENIES: Eczema, Urticaria Neurologic: DENIES: Abnormal gait, Headache, Localized weakness, Paresthesias, Seizures, Speech Problems, Tremor, Poor Balance Psychiatric: COMPLAINS OF: Confusion, Delusions Mental Status Examination Appearance: Disheveled Consciousness: Alert Orientation: x4 Motor Activity: Abnormal gait Speech: Unremarkable Fund of Knowledge: Adequate Memory: Unremarkable Mood: Anxious Affect: Labile Thought Process & Associations: Disorganized Thought Content: Bizarre thinking, Preoccupations, Delusional, Obsessions Hallucination Type: Auditory (denies) Delusion Type: Paranoid, Other (grandeour) Suicidal Ideation: No Suicidal Plan: No Suicidal Intention: No Homicidal Ideation: No Homicidal Plan: No Homicidal Intention: No Insight: Poor Judgment: Poor Results Vitals/IOs Vital Signs Date Time Temp Pulse Resp B/P (MAP) Pulse Ox O2 Delivery O2 Flow Rate FiO2 07/16/17 06:30 98.2 65 19 101/55 (70) 95 Assessment & Plan Problem List: (1) Schizophrenia ICD Codes: F20.9 - Schizophrenia, unspecified Assessment & Plan: Crosstitrate Risperdal with Geodon to increase Risperdal to 2 mg twice daily, decrease Geodon to 40 mg twice daily. Continue Depakote 500 mg twice daily. Brief supportive psychotherapy and psychoeducation provided Assessment & Plan Estimated LOS: days Justification for Cont. Inpt. Patient continues to be acutely psychotic, continue psychiatric hospitalization. Venu Fitzpatrick MD Jul 16, 2017 14:06
[2017-07-16] MEDS: ZIPRASIDONE HCL 40 MG CAP PO SCH (17:04)
[2017-07-16 18:31] VITALS: BP 105/69; PULSE 70; RESP 18; TEMP 98; O2SAT 100
[2017-07-16] MEDS: PADIMATE (CHAPSTICK) 4.5 GM TUBE TOPICAL PRN (20:29)
[2017-07-17 06:14] VITALS: BP 109/57; PULSE 65; RESP 18; TEMP 97.2; O2SAT 99
[2017-07-17] MEDS: NICOTINE 21 MG/24 HR PATCH T-DERMAL SCH (08:55)
[2017-07-17] MEDS: PROPRANOLOL HCL 10 MG TAB PO SCH ×2 (08:55→20:54)
[2017-07-17] MEDS: ZIPRASIDONE HCL 40 MG CAP PO SCH (08:55)
[2017-07-17] MEDS: risperiDONE 1 MG TAB PO SCH ×2 (08:55→20:54)
[2017-07-17] MEDS: DIVALPROEX SODIUM E.R. 500 MG TAB PO SCH ×2 (08:55→20:54)
[2017-07-17] MEDS: BENZTROPINE MESYLATE 1 MG TAB PO SCH ×2 (08:55→20:54)
[2017-07-17] MEDS: metFORMIN HCL 500 MG TAB PO SCH (08:55)
--- NOTE | 2017-07-17 12:55 | HHI.PYPN ---
Subjective Chief Complaint: Psychosis Remarks I will be assuming care of this patient. Patient seen and examined with nurse. Chart reviewed. Case discussed with nursing staff. Patient transferred from lower acuity unit higher acuity unit reportedly because she was threatening one of the recreation therapists and was intrusive and paranoid. On my examination today, the patient is pleased to have been transferred back to the high acuity unit because on the lower acuity unit she felt like "they were starting word- fights with me. Over there there's LSD on sugar cubes, [place] stamps. I don't feel aggravation" on the high acuity unit. She takes no ownership for her behavior on the lower acuity unit. She remained somewhat intrusive. Denies SI or HI. Denies side effects from medications. No acute physical complaints. Review of Systems ROS Limitations: Psychotic, Poor Historian Except as stated in HPI: all other systems reviewed are Neg Mental Status Examination Appearance: Appropriate Consciousness: Alert Orientation: x4 Motor Activity: Normal gait, Other (no motor abnormalities noted) Speech: Unremarkable Language: Adequate Fund of Knowledge: Adequate Attention and Concentration: Easily Distracted Memory: Unremarkable Mood: Irritable Affect: Labile Thought Process & Associations: Circumstantial Thought Content: Delusional Hallucination Type: Other (appears internally stimulated) Delusion Type: Paranoid Suicidal Ideation: No Suicidal Plan: No Suicidal Intention: No Homicidal Ideation: No Homicidal Plan: No Homicidal Intention: No Insight: Poor Judgment: Poor Results Labs Laboratories reviewed. Therapeutic Depakote level noted. Vitals/IOs Vital Signs Date Time Temp Pulse Resp B/P (MAP) Pulse Ox O2 Delivery O2 Flow Rate FiO2 07/17/17 06:14 97.2 65 18 109/57 (74) 99 Assessment & Plan Problem List: (1) Other schizoaffective disorders ICD Codes: F25.8 - Other schizoaffective disorders Assessment & Plan Ongoing psychosis, perhaps with some component of personality disorder, likely cluster B (borderline-antisocial). Continue cross taper of Geodon to Risperdal. Discontinue Geodon and titrate Risperdal to 3 mg twice daily to target psychosis. Continue Depakote as ordered. Continue to monitor on the high acuity unit. Continue other care as ordered. Justification for Cont. Inpt. Medication changes. Impairment in reality construction. High risk for decompensation in less restrictive environment. Discharge Planning I will discuss the discharge plan with counselor. Terry Justin MD Jul 17, 2017 12:55
[2017-07-17 16:48] VITALS: BP 125/70; PULSE 69; RESP 18; TEMP 96.7; O2SAT 100
[2017-07-18 06:08] VITALS: BP 101/57; PULSE 66; RESP 18; TEMP 97.2; O2SAT 97
[2017-07-18 07:19] LABS: AUTOMATED NEUTROPHIL # 5.6 TH/MM3 (1.8-7.7); BASOPHIL # 0.1 TH/MM3 (0-0.2); BASOPHIL % 0.8 % (0.0-2.0); EOSINOPHIL # 0.1 TH/MM3 (0-0.4); EOSINOPHIL % 0.9 % (0.0-4.0); HEMOGLOBIN 12.9 GM/DL (11.6-15.3); LYMPH % 41.3 % (9.0-44.0); LYMPHOCYTE # 4.7 TH/MM3 (1.0-4.8); MEAN CELL VOLUME 88.1 FL (80.0-100.0); MEAN CORPUSCULAR HEMOGLOBIN 29.9 PG (27.0-34.0); MEAN CORPUSCULAR HGB CONC 33.9 % (32.0-36.0); MEAN PLATELET VOLUME 8.9 FL (7.0-11.0); MONOCYTE # 0.9 TH/MM3 (0-0.9); PLATELET COUNT 294 TH/MM3 (150-450); RED BLOOD COUNT 4.31 MIL/MM3 (4.00-5.30); RED CELL DISTRIBUTION WIDTH 13.7 % (11.6-17.2); WHITE BLOOD COUNT 11.4 TH/MM3 (4.0-11.0)
[2017-07-18] MEDS: DIVALPROEX SODIUM E.R. 500 MG TAB PO SCH ×2 (08:17→21:11)
[2017-07-18] MEDS: metFORMIN HCL 500 MG TAB PO SCH (08:18)
[2017-07-18] MEDS: risperiDONE 1 MG TAB PO SCH ×2 (08:18→21:12)
[2017-07-18] MEDS: NICOTINE 21 MG/24 HR PATCH T-DERMAL SCH (08:18)
[2017-07-18] MEDS: PROPRANOLOL HCL 10 MG TAB PO SCH ×2 (08:18→21:12)
[2017-07-18] MEDS: BENZTROPINE MESYLATE 1 MG TAB PO SCH ×2 (08:18→21:11)
--- NOTE | 2017-07-18 10:12 | HHI.PYPN ---
Subjective Chief Complaint: Psychosis Remarks Patient seen and examined. Chart reviewed. Case discussed with nursing staff. On my examination today, patient is somewhat oppositional. Some cluster B personality traits are noted. No SI or HI. Patient feels that current psychotropics are helping. Counselor spoke with mother and relates that she feels that the patient did better with clozapine. I have discussed this with the patient, and she flatly refuses the clozapine because of the blood draw requirement and because, she says, she had a "low white blood count" with this medication. Denies side effects from medications. No physical complaints. I endeavored to reach patient's mother/healthcare surrogate at the number in the EMR. I left a generic voicemail requesting a call back. Review of Systems ROS Limitations: Psychotic, Poor Historian Except as stated in HPI: all other systems reviewed are Neg Mental Status Examination Appearance: Appropriate Consciousness: Alert Orientation: x4 Motor Activity: Normal gait, Other (no abnormal motor movements noted) Speech: Unremarkable Language: Adequate Fund of Knowledge: Adequate Attention and Concentration: Easily Distracted Memory: Unremarkable Mood: Oppositional Affect: Labile (mild) Thought Process & Associations: Circumstantial Thought Content: Delusional Hallucination Type: None Delusion Type: Paranoid (mild) Suicidal Ideation: No Suicidal Plan: No Suicidal Intention: No Homicidal Ideation: No Homicidal Plan: No Homicidal Intention: No Insight: Poor Judgment: Poor Results Labs Test 07/18/17 06:14 White Blood Count 11.4 TH/MM3 Red Blood Count 4.31 MIL/MM3 Hemoglobin 12.9 GM/DL Hematocrit 38.0 % Mean Corpuscular Volume 88.1 FL Mean Corpuscular Hemoglobin 29.9 PG Mean Corpuscular Hemoglobin Concent 33.9 % Red Cell Distribution Width 13.7 % Platelet Count 294 TH/MM3 Mean Platelet Volume 8.9 FL Neutrophils (%) (Auto) 49.0 % Lymphocytes (%) (Auto) 41.3 % Monocytes (%) (Auto) 8.0 % Eosinophils (%) (Auto) 0.9 % Basophils (%) (Auto) 0.8 % Neutrophils # (Auto) 5.6 TH/MM3 Lymphocytes # (Auto) 4.7 TH/MM3 Monocytes # (Auto) 0.9 TH/MM3 Eosinophils # (Auto) 0.1 TH/MM3 Basophils # (Auto) 0.1 TH/MM3 CBC Comment DIFF FINAL Differential Comment Labs reviewed. Mild leukocytosis noted without any signs or symptoms of infection. ANC would be adequate for clozapine therapy. Vitals/IOs Vital Signs Date Time Temp Pulse Resp B/P (MAP) Pulse Ox O2 Delivery O2 Flow Rate FiO2 07/18/17 06:08 97.2 66 18 101/57 (72) 97 Assessment & Plan Problem List: (1) Other schizoaffective disorders ICD Codes: F25.8 - Other schizoaffective disorders (2) Cluster B personality traits Assessment & Plan Continue Risperdal and Depakote as ordered. We could consider adding clozapine with permission of the healthcare surrogate, but the patient has stated that she will refuse this medication. Continue to monitor on the high acuity unit. Continue other medications and care as ordered. Justification for Cont. Inpt. Risk for decompensation in less restrictive environment. Discharge Planning Pending psychiatric stabilization. Terry Justin MD Jul 18, 2017 10:12
[2017-07-18] MEDS: ACETAMINOPHEN 325 MG TAB PO PRN (17:22)
[2017-07-18 18:11] VITALS: BP 113/64; PULSE 67; RESP 18; TEMP 97.3; O2SAT 97
[2017-07-19 06:03] VITALS: BP 111/72; PULSE 88; RESP 17; TEMP 98.2; O2SAT 96
--- NOTE | 2017-07-19 09:12 | HHI.PYPN ---
Subjective Chief Complaint: Psychosis Remarks Patient seen and examined. Chart reviewed. Case discussed with nursing staff. Case discussed in treatment team. On my exam, patient remains somewhat irritable and paranoid, although overall she is calmer and less oppositional than in previous visits. Thought process is somewhat tangential. She tells me that she "feel[s] pretty good" today. No side effects from medications. No physical complaints. Spoke with patient's mother/healthcare surrogate Zina Gar. Mother insists that patient is not at chronic baseline and has improved significantly on clozapine in the past. She requests that patient be placed back on clozapine, and we discuss adding this to existing Risperdal regimen with plans for possible later cross-taper from Risperdal to clozapine once dose of clozapine is therapeutic. We review the R/B/A for clozapine including general atypical antipsychotic side effects as well as clozapine-specific side effects like risk for agranulocytosis, sialorrhea, decreased seizure threshold and cardiomyopathy. Mother notes patient never had a low WBC count with clozapine as patient had asserted. I checked Clozapine REMS, and it appears mother is right on this point as lowest recorded value was comfortably within the normal range. Also RN informs me that previous physician did not get written consent for the Risperdal, and so I have obtained this from mother now. Review of Systems ROS Limitations: Psychotic, Poor Historian Except as stated in HPI: all other systems reviewed are Neg Mental Status Examination Appearance: Appropriate Consciousness: Alert Orientation: x4 Motor Activity: Normal gait, Other (no motoric abnormalities noted) Speech: Unremarkable Language: Adequate Fund of Knowledge: Adequate Attention and Concentration: Easily Distracted Memory: Unremarkable Mood: Oppositional (less so today), Irritable (mild) Affect: Labile (mild) Thought Process & Associations: Tangential (at times) Thought Content: Delusional Hallucination Type: None Delusion Type: Paranoid (mild) Suicidal Ideation: No Suicidal Plan: No Suicidal Intention: No Homicidal Ideation: No Homicidal Plan: No Homicidal Intention: No Insight: Poor Judgment: Poor Results Labs Labs reviewed. No new labs. Vitals/IOs Vital Signs Date Time Temp Pulse Resp B/P (MAP) Pulse Ox O2 Delivery O2 Flow Rate FiO2 07/19/17 06:03 98.2 88 17 111/72 (85) 96 Assessment & Plan Problem List: (1) Other schizoaffective disorders ICD Codes: F25.8 - Other schizoaffective disorders (2) Cluster B personality traits Assessment & Plan Add clozapine 50mg qHS with morning dose of 25mg to start on Saturday. Weekly CBCs on Mondays. Continue Depakote and Risperdal as ordered. Continue to monitor on the high acuity unit. Continue other medications and care as ordered. Justification for Cont. Inpt. Medication changes. Risk for decompensation in less restrictive environment. Discharge Planning Pending psychiatric stabilization. Mother would like to have the patient home once stable. I have informed mother that I will [facility] in case we cannot stabilize patient within the several month time- frame to [facility], and she does not oppose this. Request HC Surrog/Guard Advoc?: Yes Terry Justin MD Jul 19, 2017 09:12
[2017-07-19] MEDS: PROPRANOLOL HCL 10 MG TAB PO SCH ×2 (10:19→20:11)
[2017-07-19] MEDS: DIVALPROEX SODIUM E.R. 500 MG TAB PO SCH ×2 (10:19→20:11)
[2017-07-19] MEDS: NICOTINE 21 MG/24 HR PATCH T-DERMAL SCH (10:19)
[2017-07-19] MEDS: metFORMIN HCL 500 MG TAB PO SCH (10:19)
[2017-07-19] MEDS: BENZTROPINE MESYLATE 1 MG TAB PO SCH ×2 (10:20→20:11)
[2017-07-19] MEDS: risperiDONE 1 MG TAB PO SCH ×2 (12:30→20:11)
[2017-07-19 18:27] VITALS: BP 115/71; PULSE 73; RESP 17; TEMP 98.1; O2SAT 99
[2017-07-19] MEDS: cloZAPine 25 MG TAB PO SCH (20:11)
[2017-07-20 05:21] VITALS: BP 117/64; PULSE 62; RESP 18; TEMP 97.8; O2SAT 92
[2017-07-20] MEDS: DIVALPROEX SODIUM E.R. 500 MG TAB PO SCH ×2 (09:00→21:54)
[2017-07-20] MEDS: PROPRANOLOL HCL 10 MG TAB PO SCH ×2 (09:00→21:55)
[2017-07-20] MEDS: risperiDONE 1 MG TAB PO SCH ×2 (09:00→21:54)
[2017-07-20] MEDS: BENZTROPINE MESYLATE 1 MG TAB PO SCH ×2 (09:00→21:55)
[2017-07-20] MEDS: metFORMIN HCL 500 MG TAB PO SCH (09:00)
[2017-07-20] MEDS: NICOTINE 21 MG/24 HR PATCH T-DERMAL SCH (09:05)
--- NOTE | 2017-07-20 14:15 | HHI.PYPN ---
Subjective Chief Complaint: Psychosis Remarks Patient was seen and case discussed with nursing. Patient is behaving well on the unit today. Thought process remains disorganized with poor insight. Per nursing she is internally preoccupied. No outbursts today. Having a "good day. " Mental Status Examination Appearance: Appropriate Consciousness: Alert Orientation: x4 Motor Activity: Normal gait, Other (no motoric abnormalities noted) Speech: Unremarkable Language: Adequate Fund of Knowledge: Adequate Attention and Concentration: Easily Distracted Memory: Unremarkable Mood: Oppositional (less so today), Irritable (mild) Affect: Labile (mild) Thought Process & Associations: Disorganized Thought Content: Delusional Hallucination Type: None Delusion Type: Paranoid (mild) Suicidal Ideation: No Suicidal Plan: No Suicidal Intention: No Homicidal Ideation: No Homicidal Plan: No Homicidal Intention: No Insight: Poor Judgment: Poor Results Vitals/IOs Vital Signs Date Time Temp Pulse Resp B/P (MAP) Pulse Ox O2 Delivery O2 Flow Rate FiO2 07/20/17 05:21 97.8 62 18 117/64 (81) 92 Assessment & Plan Problem List: (1) Other schizoaffective disorders ICD Codes: F25.8 - Other schizoaffective disorders (2) Cluster B personality traits Assessment & Plan Continue current treatment plan Justification for Cont. Inpt. Patient will decompensate in a less restrictive setting Request HC Surrog/Guard Advoc?: Yes Jimmy Pace DO Jul 20, 2017 14:15
[2017-07-20 19:29] VITALS: BP 135/72; PULSE 88; RESP 16; TEMP 98.3; O2SAT 99
[2017-07-20] MEDS: cloZAPine 25 MG TAB PO SCH (21:55)
[2017-07-21 06:15] VITALS: BP 102/59; PULSE 69; RESP 17; TEMP 97.7; O2SAT 96
--- NOTE | 2017-07-21 09:33 | HHI.PYPN ---
Subjective Chief Complaint: Psychosis Remarks Patient was seen and case discussed with nursing. Patient is compliant with medications. Sleeping well but complaining of feeling tired. No ETO's. Nursing think she may be talking to herself and when asked patient becomes quite defensive and irritable. Mental Status Examination Appearance: Appropriate Consciousness: Alert Orientation: x4 Motor Activity: Normal gait, Other (no motoric abnormalities noted) Speech: Unremarkable Language: Adequate Fund of Knowledge: Adequate Attention and Concentration: Easily Distracted Memory: Unremarkable Mood: Oppositional (less so today), Irritable (mild) Affect: Labile (mild) Thought Process & Associations: Disorganized Thought Content: Delusional Hallucination Type: None Delusion Type: Paranoid (mild) Suicidal Ideation: No Suicidal Plan: No Suicidal Intention: No Homicidal Ideation: No Homicidal Plan: No Homicidal Intention: No Insight: Poor Judgment: Poor Results Vitals/IOs Vital Signs Date Time Temp Pulse Resp B/P (MAP) Pulse Ox O2 Delivery O2 Flow Rate FiO2 07/21/17 06:15 97.7 69 17 102/59 (73) 96 Intake and Output 07/21/17 07/21/17 07/22/17 08:00 16:00 00:00 Intake Total 480 ml Balance 480 ml Assessment & Plan Problem List: (1) Other schizoaffective disorders ICD Codes: F25.8 - Other schizoaffective disorders (2) Cluster B personality traits Assessment & Plan Continue current treatment plan Justification for Cont. Inpt. Patient will decompensate in a less restrictive setting Request HC Surrog/Guard Advoc?: Yes Jimmy Pace DO Jul 21, 2017 09:33
[2017-07-21] MEDS: DIVALPROEX SODIUM E.R. 500 MG TAB PO SCH ×2 (10:44→20:58)
[2017-07-21] MEDS: PROPRANOLOL HCL 10 MG TAB PO SCH ×2 (10:45→20:58)
[2017-07-21] MEDS: cloZAPine 25 MG TAB PO SCH ×2 (10:45→20:58)
[2017-07-21] MEDS: BENZTROPINE MESYLATE 1 MG TAB PO SCH ×2 (10:46→20:59)
[2017-07-21] MEDS: risperiDONE 1 MG TAB PO SCH ×2 (10:46→20:58)
[2017-07-21] MEDS: NICOTINE 21 MG/24 HR PATCH T-DERMAL SCH (10:46)
[2017-07-21] MEDS: metFORMIN HCL 500 MG TAB PO SCH (10:46)
[2017-07-21 18:13] VITALS: BP 120/62; PULSE 72; RESP 17; TEMP 97.6; O2SAT 97
[2017-07-21] MEDS: ALUMINUM/MAGNESIUM/SIMETH 30 ML CUP PO PRN (21:01)
[2017-07-22 06:51] VITALS: BP 102/58; PULSE 68; RESP 18; TEMP 98; O2SAT 97
[2017-07-22] MEDS: DIVALPROEX SODIUM E.R. 500 MG TAB PO SCH ×2 (08:54→20:16)
[2017-07-22] MEDS: metFORMIN HCL 500 MG TAB PO SCH (08:54)
[2017-07-22] MEDS: cloZAPine 25 MG TAB PO SCH (08:54)
[2017-07-22] MEDS: NICOTINE 21 MG/24 HR PATCH T-DERMAL SCH (08:54)
[2017-07-22] MEDS: ACETAMINOPHEN 325 MG TAB PO PRN (08:54)
[2017-07-22] MEDS: risperiDONE 1 MG TAB PO SCH ×2 (08:54→20:16)
[2017-07-22] MEDS: BENZTROPINE MESYLATE 1 MG TAB PO SCH ×2 (08:54→20:16)
[2017-07-22] MEDS: PROPRANOLOL HCL 10 MG TAB PO SCH ×2 (08:54→20:16)
--- NOTE | 2017-07-22 09:17 | HHI.PYPN ---
Subjective Chief Complaint: Psychosis Remarks Patient seen and examined with nurse. Chart reviewed. Case discussed with nursing staff. Per nursing staff, the patient reported to nurse that "they" are trying to aggravate the patient. On my exam, patient is a little less irritable. Her thought process is tangential, but a little more organized than in previous interactions. She denies AVH. Denies side effects from medications. No physical complaints. Review of Systems ROS Limitations: Psychotic, Poor Historian Except as stated in HPI: all other systems reviewed are Neg Mental Status Examination Appearance: Appropriate Consciousness: Alert Orientation: x4 Motor Activity: Other (no hand tremor, no dystonia, no dyskinesia, no other motor abnormalities noted.) Speech: Unremarkable Language: Adequate Fund of Knowledge: Adequate Attention and Concentration: Easily Distracted Memory: Unremarkable Mood: Irritable (decreasing) Affect: Labile (decreasing) Thought Process & Associations: Tangential Thought Content: Delusional Hallucination Type: None Delusion Type: Paranoid (decreasing) Suicidal Ideation: No Suicidal Plan: No Suicidal Intention: No Homicidal Ideation: No Homicidal Plan: No Homicidal Intention: No Insight: Poor Judgment: Poor Results Labs Item Value Date Time White Blood Count 11.9 TH/MM3 H 07/22/17 1053 Hemoglobin 13.6 GM/DL 07/22/17 1053 Platelet Count 265 TH/MM3 07/22/17 1053 Neutrophils # (Auto) 6.0 TH/MM3 07/22/17 1053 ANC remains adequate for clozapine therapy. Vitals/IOs Vital Signs Date Time Temp Pulse Resp B/P (MAP) Pulse Ox O2 Delivery O2 Flow Rate FiO2 07/22/17 06:51 98.0 68 18 102/58 (73) 97 Assessment & Plan Problem List: (1) Other schizoaffective disorders ICD Codes: F25.8 - Other schizoaffective disorders (2) Cluster B personality traits Assessment & Plan Patient does seem somewhat improved with initiation of clozapine. Titrate clozapine to 50mg qAM and 75mg qHS. Continue Risperdal and Depakote as ordered. Continue to monitor on the inpatient unit. Continue other care as ordered. Justification for Cont. Inpt. Medication changes. Impairment in reality construction. Risk for decompensation in less restrictive environment. Discharge Planning Pending psychiatric stabilization. Request HC Surrog/Guard Advoc?: Yes Terry Justin MD Jul 22, 2017 09:17
[2017-07-22 11:51] LABS: BASOPHIL # 0.1 TH/MM3 (0-0.2); BASOPHIL % 0.6 % (0.0-2.0); EOSINOPHIL # 0.1 TH/MM3 (0-0.4); EOSINOPHIL % 0.7 % (0.0-4.0); HEMATOCRIT 41.1 % (35.0-46.0); HEMOGLOBIN 13.6 GM/DL (11.6-15.3); LYMPH % 36.8 % (9.0-44.0); LYMPHOCYTE # 4.4 TH/MM3 (1.0-4.8); MEAN CORPUSCULAR HEMOGLOBIN 29.4 PG (27.0-34.0); MEAN PLATELET VOLUME 9.3 FL (7.0-11.0); MONO % 11.6 % (0.0-8.0); MONOCYTE # 1.4 TH/MM3 (0-0.9); NEUT % 50.3 % (16.0-70.0); PLATELET COUNT 265 TH/MM3 (150-450); RED BLOOD COUNT 4.62 MIL/MM3 (4.00-5.30); RED CELL DISTRIBUTION WIDTH 13.8 % (11.6-17.2); WHITE BLOOD COUNT 11.9 TH/MM3 (4.0-11.0)
[2017-07-22] MEDS: PADIMATE (CHAPSTICK) 4.5 GM TUBE TOPICAL PRN (16:19)
[2017-07-22 17:43] VITALS: BP 127/68; PULSE 77; RESP 18; TEMP 97.9; O2SAT 99
[2017-07-22] MEDS ORDERED: cloZAPine 25 MG TAB PO SCH (21:00)
[2017-07-23 05:45] VITALS: BP 107/66; PULSE 70; RESP 18; TEMP 98.3; O2SAT 97
[2017-07-23] MEDS: metFORMIN HCL 500 MG TAB PO SCH (08:30)
[2017-07-23] MEDS: BENZTROPINE MESYLATE 1 MG TAB PO SCH ×2 (08:30→20:29)
[2017-07-23] MEDS: DIVALPROEX SODIUM E.R. 500 MG TAB PO SCH ×2 (08:30→20:29)
[2017-07-23] MEDS: risperiDONE 1 MG TAB PO SCH ×2 (08:31→20:28)
[2017-07-23] MEDS: NICOTINE 21 MG/24 HR PATCH T-DERMAL SCH (08:31)
[2017-07-23] MEDS: PROPRANOLOL HCL 10 MG TAB PO SCH ×2 (09:00→20:29)
[2017-07-23] MEDS ORDERED: cloZAPine 25 MG TAB PO SCH (09:00)
--- NOTE | 2017-07-23 10:46 | HHI.PYPN ---
Subjective Chief Complaint: Psychosis Remarks Patient seen and examined with nurse. Chart reviewed. Case discussed with nursing staff. Case discussed in treatment team. On my exam, patient does seem calmer and less irritable. Thought process more organized and appropriate. She now says "I'm glad I got put back on clozapine." Tolerating psychotropics well without side effects. No physical complaints. Review of Systems Except as stated in HPI: all other systems reviewed are Neg Mental Status Examination Appearance: Appropriate Consciousness: Alert Orientation: x4 Motor Activity: Other (no motor abnormalities appreciated) Speech: Unremarkable Language: Adequate Fund of Knowledge: Adequate Attention and Concentration: Easily Distracted Memory: Unremarkable Mood: Appropriate Affect: Appropriate, Euthymic Thought Process & Associations: Circumstantial Thought Content: Appropriate Hallucination Type: None Delusion Type: None Suicidal Ideation: No Suicidal Plan: No Suicidal Intention: No Homicidal Ideation: No Homicidal Plan: No Homicidal Intention: No Insight: Poor Judgment: Poor Results Labs Test 07/22/17 10:53 White Blood Count 11.9 TH/MM3 Red Blood Count 4.62 MIL/MM3 Hemoglobin 13.6 GM/DL Hematocrit 41.1 % Mean Corpuscular Volume 89.0 FL Mean Corpuscular Hemoglobin 29.4 PG Mean Corpuscular Hemoglobin Concent 33.0 % Red Cell Distribution Width 13.8 % Platelet Count 265 TH/MM3 Mean Platelet Volume 9.3 FL Neutrophils (%) (Auto) 50.3 % Lymphocytes (%) (Auto) 36.8 % Monocytes (%) (Auto) 11.6 % Eosinophils (%) (Auto) 0.7 % Basophils (%) (Auto) 0.6 % Neutrophils # (Auto) 6.0 TH/MM3 Lymphocytes # (Auto) 4.4 TH/MM3 Monocytes # (Auto) 1.4 TH/MM3 Eosinophils # (Auto) 0.1 TH/MM3 Basophils # (Auto) 0.1 TH/MM3 CBC Comment DIFF FINAL Differential Comment Labs reviewed. Vitals/IOs Vital Signs Date Time Temp Pulse Resp B/P (MAP) Pulse Ox O2 Delivery O2 Flow Rate FiO2 07/23/17 05:45 98.3 70 18 107/66 (80) 97 Assessment & Plan Problem List: (1) Other schizoaffective disorders ICD Codes: F25.8 - Other schizoaffective disorders (2) Cluster B personality traits Assessment & Plan Continue clozapine titration 75 mg in the morning and 100 mg at bedtime. Continue Risperdal as ordered for now, although we might consider tapering this medication versus leaving it in place with clozapine as an augmenting agent for now. Patient was previously on Geodon/clozapine. Continue to monitor on the inpatient unit. Continue other medications and care as ordered. Justification for Cont. Inpt. Medication changes. Risk for decompensation in less restrictive environment. Discharge Planning Pending psychiatric stabilization Request HC Surrog/Guard Advoc?: Yes Terry Justin MD Jul 23, 2017 10:46
[2017-07-23 18:15] VITALS: BP 120/82; PULSE 79; RESP 18; TEMP 97.4; O2SAT 95
[2017-07-23] MEDS: cloZAPine 25 MG TAB PO SCH (20:28)
[2017-07-23] MEDS: ACETAMINOPHEN 325 MG TAB PO PRN (20:30)
[2017-07-24 06:00] VITALS: BP 98/55; PULSE 76; RESP 18; TEMP 97.8; O2SAT 93
[2017-07-24] MEDS: metFORMIN HCL 500 MG TAB PO SCH (08:37)
[2017-07-24] MEDS: PROPRANOLOL HCL 10 MG TAB PO SCH ×2 (08:37→21:03)
[2017-07-24] MEDS: cloZAPine 25 MG TAB PO SCH ×2 (08:38→21:04)
[2017-07-24] MEDS: BENZTROPINE MESYLATE 1 MG TAB PO SCH ×2 (08:38→21:03)
[2017-07-24] MEDS: DIVALPROEX SODIUM E.R. 500 MG TAB PO SCH ×2 (08:38→21:02)
[2017-07-24] MEDS: risperiDONE 1 MG TAB PO SCH ×2 (08:38→21:02)
[2017-07-24] MEDS: NICOTINE 21 MG/24 HR PATCH T-DERMAL SCH (08:38)
[2017-07-24] MEDS ORDERED: Benztropine PO (10:50)
[2017-07-24] MEDS ORDERED: CLOZ25TA PO ×2 (10:50)
[2017-07-24] MEDS ORDERED: RISP1 PO (10:50)
[2017-07-24] MEDS ORDERED: PROP10TA6 PO (10:50)
[2017-07-24] MEDS ORDERED: DEPA500T3 PO (10:50)
--- NOTE | 2017-07-24 10:50 | HHI.DS ---
Psychiatry Discharge Summary Advance Directive: No Reason Not Provided: Due to Patient Condition Mental Health AdvanceDirective: No Admission Admission Date Jul 05, 2017 at 12:11 Admission Diagnosis: Brief History The patient is a 51 year-old white, single, female with schizophrenia recently discharged from [facility] on 06/10/17 domicile with her mother and brother in [place], [place] presents under ex parte for reported increased aggression and threatening behavior towards her mother. She reports that she was taking her psych medications as prescribed but they "stopped working yesterday" and she became aggressive with her brother. She denies SI, HI, and AVD. Per psychiatry screening the mother, Shanique Gar, reports: "Salas Act 04-22 her behavior was threatening and out of control, very frightening for me. After first the first admission to [facility], was released, I believe, prematurely. Symptoms very apparent. My son and I urged her to voluntarily admit herself back into treatment, over the last 2 weeks and she refused due to her schizophrenia. Despite taking all her medications prescribed, she continues to exhibit symptoms including: delusions, paranoia and does not be in the present most of the time. She hears voice. As per family members the patient has been very disorganized, acting erratically at home, noncompliant with medications, very disruptive, is sleeping poorly, talking to herself. Also her mother clarifies that the patient has been saying that she is hearing voices. 07/05/17 Above note dictated by Dr. Redmond reviewed and agreed with. Patient is admitted to the [address] Redmond. He has done H&P. Dr. Redmond is also done the first opinion petition supporting Salas act. Patient seen by me with nurse marian, patient acknowledges increased paranoia anger irritability lability related plan express towards her family of origin. She denies suicidality she is vague about voices. At this time I feel patient does meet criteria for involuntary psychiatric hospitalization of the Salas act. Thus I' ll cosign second opinion petition supporting Salas act Tobacco Use In Past 30 Days: 5 or More Cigarettes/Day Alcohol Use: Never Results Blood Pressure 98 / 55 Vital Signs Date Time Temp Pulse Resp B/P (MAP) Pulse Ox O2 Delivery O2 Flow Rate FiO2 07/24/17 06:00 97.8 76 18 98/55 (69) 93 Laboratory Tests Test 07/22/17 10:53 White Blood Count 11.9 TH/MM3 (4.0-11.0) Monocytes (%) (Auto) 11.6 % (0.0-8.0) Monocytes # (Auto) 1.4 TH/MM3 (0-0.9) Laboratory Results Test 07/06/17 08:40 07/12/17 19:16 Cholesterol Level 138 MG/DL (120-200) HDL Cholesterol 32.8 MG/DL (40.0-60.0) Hemoglobin A1c 6.3 % (4.3-6.0) LDL Cholesterol 73 MG/DL (0-99) Triglycerides Level 161 MG/DL (42-150) Valproic Acid (Depakene) Level 80 MCG/ML (50-100) Medications Approp Antipsych med options 1 - Minimum of three failed multiple trials of monotherapy. 2 - Documented plan to taper to monotherapy due to previous use of multiple meds OR cross-taper in progress at D/C. 3 - Documentation of augmentation of Clozapine. 4 - Justification other than those listed in allowable values 1-3, document here : Discharge Pt Condition on Discharge: Stable Discharge Disposition: Discharge Home Discharge Instructions Diet Instructions: As Tolerated, No Restrictions Activities you can perform: Weight Bearing as Pancho Mental Status Examination Appearance: Appropriate Consciousness: Alert Orientation: x4 Motor Activity: Other (no motor abnormalities appreciated) Speech: Unremarkable Language: Adequate Fund of Knowledge: Adequate Attention and Concentration: Easily Distracted Memory: Unremarkable Mood: Appropriate Affect: Appropriate, Euthymic Thought Process & Associations: Circumstantial Thought Content: Appropriate Hallucination Type: None Delusion Type: None Suicidal Ideation: No Suicidal Plan: No Suicidal Intention: No Homicidal Ideation: No Homicidal Plan: No Homicidal Intention: No Insight: Poor Judgment: Poor Discharge/Advance Care Plan Health Problems: (1) Other schizoaffective disorders (2) Cluster B personality traits Goals to promote your health * To prevent worsening of your condition and complications * To maintain your health at the optimal level Directions to meet your goals Take your medications as prescribed Follow your dietary instruction Follow activity as directed Keep your appointments as scheduled Take your immunizations and boosters as scheduled If your symptoms worsen call your PCP, if no PCP go to Urgent Care Center or Emergency Room For 26/11 questions related to your inpatient stay or results of tests pending at discharge, please contact Dr. Terry Justin at Smoking is Dangerous to Your Health. Avoid second hand smoking Terry Justin MD Jul 24, 2017 10:50
[2017-07-24 11:03] VITALS: BP 124/72; PULSE 81; RESP 18; TEMP 98.4; O2SAT 97
--- NOTE | 2017-07-24 14:13 | HHI.PYPN ---
Subjective Chief Complaint: Psychosis Remarks Patient seen and examined. Chart reviewed. Case discussed with nursing staff. No behavioral issues overnight. On my examination today, patient is in fairly good spirits. She sleeping and eating well. Denies SI or HI. Denies AVH. Denies side effects from medications. No physical complaints. Review of Systems Except as stated in HPI: all other systems reviewed are Neg Mental Status Examination Appearance: Appropriate Consciousness: Alert Orientation: x4 Motor Activity: Other (no abnormal motor movements noted) Speech: Unremarkable Language: Adequate Fund of Knowledge: Adequate Attention and Concentration: Easily Distracted Memory: Unremarkable Mood: Appropriate Affect: Appropriate Thought Process & Associations: Intact Thought Content: Appropriate Hallucination Type: None Delusion Type: None Suicidal Ideation: No Suicidal Plan: No Suicidal Intention: No Homicidal Ideation: No Homicidal Plan: No Homicidal Intention: No Mental Status Exam Remarks Insight and judgment are fair to poor Results Labs Labs reviewed. No new labs. Vitals/IOs Vital Signs Date Time Temp Pulse Resp B/P (MAP) Pulse Ox O2 Delivery O2 Flow Rate FiO2 07/24/17 11:03 98.4 81 18 124/72 (89) 97 Assessment & Plan Problem List: (1) Other schizoaffective disorders ICD Codes: F25.8 - Other schizoaffective disorders (2) Cluster B personality traits Assessment & Plan Continue clozapine as ordered. Continue to monitor on the inpatient unit. Continue other medications and care as ordered. Justification for Cont. Inpt. Discharge planning Discharge Planning Had hoped to discharge the patient home today but counselor has not been able to reach patient's family and patient has no way to get into the house on her own. I will therefore hold her discharged today and plan for discharge tomorrow. Case discussed with counselor and RN. Request HC Surrog/Guard Advoc?: Yes Terry Justin MD Jul 24, 2017 14:13
[2017-07-25 05:25] VITALS: BP 104/58; PULSE 18; RESP 16; TEMP 98.6; O2SAT 96
[2017-07-25] MEDS: metFORMIN HCL 500 MG TAB PO SCH (08:44)
[2017-07-25] MEDS: PROPRANOLOL HCL 10 MG TAB PO SCH ×2 (08:44→20:52)
[2017-07-25] MEDS: NICOTINE 21 MG/24 HR PATCH T-DERMAL SCH (08:44)
[2017-07-25] MEDS: cloZAPine 25 MG TAB PO SCH (08:44)
[2017-07-25] MEDS: DIVALPROEX SODIUM E.R. 500 MG TAB PO SCH ×2 (08:44→20:51)
[2017-07-25] MEDS: risperiDONE 1 MG TAB PO SCH ×2 (08:44→20:50)
[2017-07-25] MEDS: BENZTROPINE MESYLATE 1 MG TAB PO SCH ×2 (08:44→20:51)
--- NOTE | 2017-07-25 12:38 | HHI.PYPN ---
Subjective Chief Complaint: Psychosis Remarks Patient seen and examined with nurse. Chart reviewed. Case discussed with nursing staff. No behavioral issues noted overnight. Case discussed with counselor. On my exam today, patient is initially quite discharge focused. In my conversation with mother last night, mother had expressed hesitance to having patient return home at this point, and when I share this with patient, she changes her position swiftly and now says that she does not feel ready for discharge. Some paranoid ideation noted. Some irritability noted. No side effects from medications reported, although I do note the patient is experiencing mild sialorrhea. No physical complaints. Spoke with mother at greater length today. She does not think the patient is ready to come home but cannot generate a concrete reason for this concern except to say that patient previously has required several weeks for stabilization. I suggest temporary NURSING HOME placement until mother feels patient is comfortable returning to the home, and mother is in agreement with plan. I have contacted the counselor to initiate referrals to ALFs. Review of Systems ROS Limitations: Poor Historian Except as stated in HPI: all other systems reviewed are Neg Mental Status Examination Appearance: Appropriate Consciousness: Alert Orientation: x4 Motor Activity: Other (No motor abnormalities noted.) Speech: Unremarkable Language: Adequate Fund of Knowledge: Adequate Attention and Concentration: Easily Distracted Memory: Unremarkable Mood: Irritable (mild) Affect: Irritable (mild) Thought Process & Associations: Intact Thought Content: Appropriate Hallucination Type: None Delusion Type: Paranoid Suicidal Ideation: No Suicidal Plan: No Suicidal Intention: No Homicidal Ideation: No Homicidal Plan: No Homicidal Intention: No Insight: Poor Judgment: Poor Results Labs Labs reviewed. Vitals/IOs Vital Signs Date Time Temp Pulse Resp B/P (MAP) Pulse Ox O2 Delivery O2 Flow Rate FiO2 07/25/17 05:25 98.6 18 16 104/58 (73) 96 Assessment & Plan Problem List: (1) Other schizoaffective disorders ICD Codes: F25.8 - Other schizoaffective disorders (2) Cluster B personality traits Assessment & Plan Continue clozapine titration to target residual psychotic symptoms: 100mg qAM and 125mg qHS. Monitor for worsening sialorrhea or other side effects. Continue to monitor on inpatient unit. Continue other medications and care as ordered. Justification for Cont. Inpt. Med changes. High risk for readmission if discharged at this time secondary to mother's concerns, although I do overall think the patient is much improved. Discharge Planning NURSING HOME placement. Request HC Surrog/Guard Advoc?: Yes Terry Justin MD Jul 25, 2017 12:38
[2017-07-25 17:40] VITALS: BP 132/74; PULSE 83; RESP 18; TEMP 97.1; O2SAT 97
[2017-07-25] MEDS ORDERED: cloZAPine 25 MG TAB PO SCH (21:00)
[2017-07-26 06:10] VITALS: BP 110/61; PULSE 72; RESP 16; TEMP 98; O2SAT 97
[2017-07-26] MEDS: BENZTROPINE MESYLATE 1 MG TAB PO SCH ×2 (09:32→21:13)
[2017-07-26] MEDS: risperiDONE 1 MG TAB PO SCH ×2 (09:33→21:13)
[2017-07-26] MEDS: PROPRANOLOL HCL 10 MG TAB PO SCH ×2 (09:33→21:13)
[2017-07-26] MEDS: cloZAPine 25 MG TAB PO SCH ×2 (09:33→21:14)
[2017-07-26] MEDS: DIVALPROEX SODIUM E.R. 500 MG TAB PO SCH ×2 (09:34→21:13)
[2017-07-26] MEDS: NICOTINE 21 MG/24 HR PATCH T-DERMAL SCH (09:34)
[2017-07-26] MEDS: metFORMIN HCL 500 MG TAB PO SCH (09:34)
--- NOTE | 2017-07-26 11:18 | PD.TTN ---
Patient Problems 1. Discharge planning 2. Medication compliance 3. Knowledge deficit 4. Lack of coping skills Progress Toward Goals Provider Present: Dr. Christine Justin Provider Input: Dr. Justin's treatment team met to discuss patient's treatment plan, medication, and discharge plan. Patient is medication compliant, and is in need of placement. Nurse(s) Input: Patient's nurse reports patient is pleasant and cooperative this morning. Psychiatric Counselors Present: Kristal Holman [facility] Psych Therapist Input: Patient presents easily agitated, cooperative but guarded. Refused placement when Lyndon from [facility] came to see patient. States "she is going home with her mother" Group Spec/RT/OT/CACERES Present: NICKI Jimenez Group Spec/RT/OT/CACERES Input: Patient attends selective groups. Kristal Holman [facility] Jul 26, 2017 11:18
--- NOTE | 2017-07-26 12:06 | HHI.PYPN ---
Subjective Chief Complaint: Psychosis Remarks Patient seen and examined during fresh air. Chart reviewed. Case discussed with nursing staff. Case discussed in treatment team. On my examination today , the patient remains a little bit guarded and oppositional. She tells me "no voices, no suicide." No side effects from medications. No physical complaints. Review of Systems ROS Limitations: Poor Historian Except as stated in HPI: all other systems reviewed are Neg Mental Status Examination Appearance: Appropriate Consciousness: Alert Orientation: x4 Motor Activity: Other (no abnormal motor movements noted) Speech: Unremarkable Language: Adequate Fund of Knowledge: Adequate Attention and Concentration: Easily Distracted Memory: Unremarkable Mood: Oppositional, Irritable (remains mild) Affect: Irritable (mild) Thought Process & Associations: Intact Thought Content: Appropriate Hallucination Type: None Delusion Type: Other (guarded) Suicidal Ideation: No Suicidal Plan: No Suicidal Intention: No Homicidal Ideation: No Homicidal Plan: No Homicidal Intention: No Insight: Poor Judgment: Poor Results Labs Labs reviewed Vitals/IOs Vital Signs Date Time Temp Pulse Resp B/P (MAP) Pulse Ox O2 Delivery O2 Flow Rate FiO2 07/26/17 06:10 98.0 72 16 110/61 (77) 97 Assessment & Plan Problem List: (1) Other schizoaffective disorders ICD Codes: F25.8 - Other schizoaffective disorders (2) Cluster B personality traits Assessment & Plan Titrate nighttime dose of clozapine to 150 mg. CBC after the weekend. Continue other psychotropics as ordered. Continue to monitor on the inpatient unit. Continue other medications and care as ordered. Justification for Cont. Inpt. Medication changes. Risk for decompensation in less restrictive environment. Discharge Planning Placement. Case discussed with counselor. Patient's oppositional style may be a barrier to successful placement. Request HC Surrog/Guard Advoc?: Yes Terry Justin MD Jul 26, 2017 12:06
[2017-07-26 17:33] VITALS: BP 121/73; PULSE 84; RESP 18; TEMP 98.2; O2SAT 100
[2017-07-26] MEDS: ALUMINUM/MAGNESIUM/SIMETH 30 ML CUP PO PRN (23:27)
[2017-07-26] MEDS: ACETAMINOPHEN 325 MG TAB PO PRN (23:27)
[2017-07-27 06:06] VITALS: BP 103/59; PULSE 70; RESP 16; TEMP 98; O2SAT 97
[2017-07-27] MEDS: PROPRANOLOL HCL 10 MG TAB PO SCH ×2 (09:53→20:49)
[2017-07-27] MEDS: cloZAPine 25 MG TAB PO SCH ×2 (09:53→20:49)
[2017-07-27] MEDS: DIVALPROEX SODIUM E.R. 500 MG TAB PO SCH ×2 (09:54→20:48)
[2017-07-27] MEDS: risperiDONE 1 MG TAB PO SCH ×2 (09:54→20:49)
[2017-07-27] MEDS: BENZTROPINE MESYLATE 1 MG TAB PO SCH ×2 (09:54→20:49)
[2017-07-27] MEDS: metFORMIN HCL 500 MG TAB PO SCH (09:54)
[2017-07-27] MEDS: NICOTINE 21 MG/24 HR PATCH T-DERMAL SCH (12:17)
--- NOTE | 2017-07-27 13:34 | HHI.PYPN ---
Subjective Chief Complaint: Psychosis Remarks Pt seen and discussed with staff. She is tolerating medications without side effects. She has been disorganized and bizarre today per staff. No SI/HI. Mental Status Examination Appearance: Appropriate Consciousness: Alert Orientation: x4 Motor Activity: Other (no abnormal motor movements noted) Speech: Unremarkable Language: Adequate Fund of Knowledge: Adequate Attention and Concentration: Easily Distracted Memory: Unremarkable Mood: Oppositional, Irritable (remains mild) Affect: Irritable (mild) Thought Process & Associations: Intact Thought Content: Appropriate Hallucination Type: None Delusion Type: Other (guarded) Suicidal Ideation: No Suicidal Plan: No Suicidal Intention: No Homicidal Ideation: No Homicidal Plan: No Homicidal Intention: No Insight: Poor Judgment: Poor Results Vitals/IOs Vital Signs Date Time Temp Pulse Resp B/P (MAP) Pulse Ox O2 Delivery O2 Flow Rate FiO2 07/27/17 06:06 98.0 70 16 103/59 (74) 97 Assessment & Plan Problem List: (1) Other schizoaffective disorders ICD Codes: F25.8 - Other schizoaffective disorders (2) Cluster B personality traits Assessment & Plan Continue current tx plan. Estimated LOS: days Justification for Cont. Inpt. psychosis, medication changes requiring monitoring Request HC Surrog/Guard Advoc?: Yes Tia Sheriff MD Jul 27, 2017 13:34
[2017-07-27 18:09] VITALS: BP 136/68; PULSE 72; RESP 18; TEMP 98.6; O2SAT 99
[2017-07-27 20:05] VITALS: BP 112/56; PULSE 76; RESP 18; TEMP 98; O2SAT 98
[2017-07-27] MEDS: PADIMATE (CHAPSTICK) 4.5 GM TUBE TOPICAL PRN (20:49)
[2017-07-28 05:05] VITALS: BP 104/63; PULSE 76; RESP 18; TEMP 98; O2SAT 97
[2017-07-28] MEDS: BENZTROPINE MESYLATE 1 MG TAB PO SCH ×2 (09:36→21:05)
[2017-07-28] MEDS: risperiDONE 1 MG TAB PO SCH ×2 (09:36→21:05)
[2017-07-28] MEDS: cloZAPine 25 MG TAB PO SCH ×2 (09:37→21:05)
[2017-07-28] MEDS: metFORMIN HCL 500 MG TAB PO SCH (09:37)
[2017-07-28] MEDS: DIVALPROEX SODIUM E.R. 500 MG TAB PO SCH ×2 (09:38→21:05)
[2017-07-28] MEDS: PROPRANOLOL HCL 10 MG TAB PO SCH ×2 (09:38→21:05)
[2017-07-28] MEDS: NICOTINE 21 MG/24 HR PATCH T-DERMAL SCH (09:43)
--- NOTE | 2017-07-28 14:22 | HHI.PYPN ---
Subjective Chief Complaint: Psychosis Remarks Pt seen and discussed with staff. She has been more organized in thought process and has been less labile in mood. She is compliant with medications. No SI/HI. Mental Status Examination Appearance: Appropriate Consciousness: Alert Orientation: x4 Motor Activity: Other (no abnormal motor movements noted) Speech: Unremarkable Language: Adequate Fund of Knowledge: Adequate Attention and Concentration: Easily Distracted Memory: Unremarkable Mood: Appropriate Affect: Appropriate Thought Process & Associations: Tangential (mild) Thought Content: Appropriate Hallucination Type: None Delusion Type: None, Other Suicidal Ideation: No Suicidal Plan: No Suicidal Intention: No Homicidal Ideation: No Homicidal Plan: No Homicidal Intention: No Insight: Poor Judgment: Poor Results Vitals/IOs Vital Signs Date Time Temp Pulse Resp B/P (MAP) Pulse Ox O2 Delivery O2 Flow Rate FiO2 07/28/17 05:05 98.0 76 18 104/63 (77) 97 Assessment & Plan Problem List: (1) Other schizoaffective disorders ICD Codes: F25.8 - Other schizoaffective disorders (2) Cluster B personality traits Assessment & Plan PT improving. Continue current tx plan. CBC tomorrow. Estimated LOS: days Justification for Cont. Inpt. risk of decompensation Request HC Surrog/Guard Advoc?: Yes Tia Sheriff MD Jul 28, 2017 14:22
[2017-07-28 17:51] VITALS: BP 112/59; PULSE 72; RESP 17; TEMP 97.9; O2SAT 98
[2017-07-28] MEDS: PADIMATE (CHAPSTICK) 4.5 GM TUBE TOPICAL PRN (21:45)
[2017-07-29 05:51] VITALS: BP 96/52; PULSE 73; RESP 16; TEMP 98.1; O2SAT 93
[2017-07-29 07:05] LABS: BASOPHIL % 0.4 % (0.0-2.0); EOSINOPHIL # 0.2 TH/MM3 (0-0.4); EOSINOPHIL % 1.4 % (0.0-4.0); HEMATOCRIT 39.4 % (35.0-46.0); HEMOGLOBIN 13.1 GM/DL (11.6-15.3); LYMPH % 41.7 % (9.0-44.0); LYMPHOCYTE # 4.7 TH/MM3 (1.0-4.8); MEAN CELL VOLUME 89.2 FL (80.0-100.0); MEAN CORPUSCULAR HEMOGLOBIN 29.6 PG (27.0-34.0); MEAN CORPUSCULAR HGB CONC 33.2 % (32.0-36.0); MEAN PLATELET VOLUME 9.2 FL (7.0-11.0); MONO % 11.9 % (0.0-8.0); MONOCYTE # 1.3 TH/MM3 (0-0.9); NEUT % 44.6 % (16.0-70.0); PLATELET COUNT 208 TH/MM3 (150-450); RED BLOOD COUNT 4.42 MIL/MM3 (4.00-5.30); RED CELL DISTRIBUTION WIDTH 14.2 % (11.6-17.2); WHITE BLOOD COUNT 11.3 TH/MM3 (4.0-11.0)
[2017-07-29] MEDS: BENZTROPINE MESYLATE 1 MG TAB PO SCH ×2 (09:00→20:23)
[2017-07-29] MEDS: PROPRANOLOL HCL 10 MG TAB PO SCH ×2 (09:13→20:23)
[2017-07-29] MEDS: DIVALPROEX SODIUM E.R. 500 MG TAB PO SCH ×2 (09:13→20:25)
[2017-07-29] MEDS: cloZAPine 25 MG TAB PO SCH ×2 (09:13→20:24)
[2017-07-29] MEDS: risperiDONE 1 MG TAB PO SCH ×2 (09:13→20:27)
[2017-07-29] MEDS: metFORMIN HCL 500 MG TAB PO SCH (09:13)
[2017-07-29] MEDS: NICOTINE 21 MG/24 HR PATCH T-DERMAL SCH (09:14)
[2017-07-29] MEDS ORDERED: CLOZ25TA PO ×2 (12:15)
--- NOTE | 2017-07-29 12:16 | HHI.DS ---
Psychiatry Discharge Summary Inpatient Psychiatric care?: Yes Advance Directive: No Reason Not Provided: Due to Patient Condition Mental Health AdvanceDirective: No Health Care Proxy: No Admission Admission Date Jul 05, 2017 at 12:11 Admission Diagnosis: (1) Schizophrenia ICD Code: F20.9 - Schizophrenia, unspecified Brief History The patient is a 51 year-old white, single, female with schizophrenia recently discharged from [facility] on 06/10/17 domicile with her mother and brother in [place], [place] presents under ex parte for reported increased aggression and threatening behavior towards her mother. She reports that she was taking her psych medications as prescribed but they "stopped working yesterday" and she became aggressive with her brother. She denies SI, HI, and AVD. Per psychiatry screening the mother, Shanique Gar, reports: "Salas Act 04-22 her behavior was threatening and out of control, very frightening for me. After first the first admission to [facility], was released, I believe, prematurely. Symptoms very apparent. My son and I urged her to voluntarily admit herself back into treatment, over the last 2 weeks and she refused due to her schizophrenia. Despite taking all her medications prescribed, she continues to exhibit symptoms including: delusions, paranoia and does not be in the present most of the time. She hears voice. As per family members the patient has been very disorganized, acting erratically at home, noncompliant with medications, very disruptive, is sleeping poorly, talking to herself. Also her mother clarifies that the patient has been saying that she is hearing voices. Tobacco Use In Past 30 Days: 5 or More Cigarettes/Day Alcohol Use: Never Hospital Course Patient was admitted to a locked, inpatient psychiatric unit. A general medical consultation was obtained. Appropriate precautions were in place throughout patient's hospital stay. Patient was seen and examined on the unit by psychiatry and also visited by counselor. Psychotropic medications were adjusted. Patient was started on clozapine therapy. Patient tolerated psychotropic medications well without side effects. Patient had improvement in presenting psychiatric symptomatology during the course of her hospital stay. There was no evidence of any suicidality or homicidality on the inpatient unit. The patient's behavior improved with benefit of psychopharmacologic treatment , and she remained in good behavioral control for the several days prior to discharge. Collateral information was obtained from the patient's family. Counselor did endeavor to place the patient in an assisted living level of care because family seems reluctant to accept her back home despite extended period of good behavior, but the patient declined placement when representatives from facility came to visit with her. She continues to decline placement now, and it is not feasible to place her over her objection. She will therefore be discharged home into family's care. On the day of discharge: Patient seen and examined with nurse. Chart reviewed. Case discussed with nursing staff who reports that the patient's behavior has been "very good" on the inpatient unit with no evidence of behavioral disturbance. Case discussed with counselor. On my examination today, patient denies any suicidal or homicidal ideation, intent or plan on direct questioning and contracts for safety. She would like to return home today. I can elicit no depressive or hypomanic/manic symptoms presently. She denies any audiovisual hallucinations. I can elicit no delusional material. She does continue to exhibit some cluster B personality traits, although these are attenuated versus earlier in the admission. She denies side effects from medications. No physical complaints. Suicide and violence risk assessment on day of discharge both suggest lower imminent risk from mental illness, and the patient's level of function is adequate for outpatient care. She no longer meets criteria for involuntary psychiatric hospitalization, nor does she meet criteria for ongoing inpatient hospitalization at this point. The patient has maximized benefit from this inpatient psychiatric hospital stay and will be discharged home today with psychiatric follow-up as arranged by counselor. Patient is also to follow-up with primary care. Patient to return to psychiatric emergency room for any concerning psychiatric symptoms as part of a general safety plan. Results Blood Pressure 96 / 52 Vital Signs Date Time Temp Pulse Resp B/P (MAP) Pulse Ox O2 Delivery O2 Flow Rate FiO2 07/29/17 05:51 98.1 73 16 96/52 (67) 93 Laboratory Tests Test 07/29/17 05:36 White Blood Count 11.3 TH/MM3 (4.0-11.0) Monocytes (%) (Auto) 11.9 % (0.0-8.0) Monocytes # (Auto) 1.3 TH/MM3 (0-0.9) Laboratory Results Test 07/06/17 08:40 07/12/17 19:16 Cholesterol Level 138 MG/DL (120-200) HDL Cholesterol 32.8 MG/DL (40.0-60.0) Hemoglobin A1c 6.3 % (4.3-6.0) LDL Cholesterol 73 MG/DL (0-99) Triglycerides Level 161 MG/DL (42-150) Valproic Acid (Depakene) Level 80 MCG/ML (50-100) Summary of Major Lab Results ANC remains adequate for clozapine therapy. Summary of Procedures None done Imaging None done Pending results at discharge: No Medications # of Antipsychotic meds at D/C: 2 Appropriate >1 Antipsych meds?: 4 Approp Antipsych med options 1 - Minimum of three failed multiple trials of monotherapy. 2 - Documented plan to taper to monotherapy due to previous use of multiple meds OR cross-taper in progress at D/C. 3 - Documentation of augmentation of Clozapine. 4 - Justification other than those listed in allowable values 1-3, document here : Required multiple antipsychotics for stabilization Discharge Discharge Date: Jul 29, 2017 Discharge Diagnosis: (1) Other schizoaffective disorders Diagnosis: Principal (stabilized) ICD Code: F25.8 - Other schizoaffective disorders (2) Cluster B personality disorder Diagnosis: Secondary ICD Code: F60.9 - Personality disorder, unspecified Pt Condition on Discharge: Stable Discharge Disposition: Discharge Home Discharge Instructions Diet Instructions: As Tolerated, No Restrictions Activities you can perform: Weight Bearing as Pancho Scheduled Appointment: Shreyas Nielson Appointment Date: Jul 26, 2017 Appointment Time: 8a-3p New Orders: BASIC METABOLIC PROF - 1 Week CBC WITH DIFF - 1 Week New Medications: Clozapine (Clozaril) 25 Mg Tab 150 MG PO HS for Mental Health for 15 Days, TAB 1 Refill Clozapine (Clozaril) 25 Mg Tab 100 MG PO DAILY for Mental Health for 15 Days, #60 TAB 1 Refill Divalproex ER (Depakote ER) 500 Mg Ludy 500 MG PO BID for Mental Health for 15 Days, #30 TAB 1 Refill Propranolol (Propranolol) 10 Mg Tab 10 MG PO Q12HR for Health for 15 Days, TAB 1 Refill Risperidone (Risperdal) 1 Mg Tab 3 MG PO Q12HR for Mental Health for 15 Days, TAB 1 Refill [Benztropine] () 1 MG TAB 1 MG PO Q12HR for Side effect management for 15 Days, 1 Refill Continued Medications: Metformin (Glucophage) 500 Mg Tab 500 MG PO DAILY for Blood Sugar Management for 15 Days, #15 TAB 1 Refill Nicotine Patch (Nicoderm CQ Patch) 14 Mg/24 Hr Patch 14 MG T-DERMAL DAILY for Smoking Cessation, #30 PATCH 0 Refills Discontinued Medications: Cefuroxime (Ceftin) 250 Mg Tab 250 MG PO BID, TAB Chlorhexidine Gluconate (Mouth) Liq (Chlorhexidine Gluconate (Mouth) Liq) 0.12% Soln 15 ML SWISH-SPIT BID, #473 ML 0 Refills Lamotrigine (Lamotrigine) 100 Mg Tab 100 MG PO HS for MENTAL HEALTH, #30 TAB 0 Refills Ziprasidone (Geodon) 60 Mg Cap 120 MG PO BIDPC for Mental Health for 15 Days, CAP 1 Refill Discharge Time > 30 minutes Mental Status Examination Appearance: Appropriate Consciousness: Alert Orientation: x4 Motor Activity: Other (no motoric abnormalities noted) Speech: Unremarkable Language: Adequate Fund of Knowledge: Adequate Attention and Concentration: Adequate Memory: Unremarkable Mood: Appropriate Affect: Appropriate Thought Process & Associations: Intact Thought Content: Appropriate Hallucination Type: None Delusion Type: None, Other Suicidal Ideation: No Suicidal Plan: No Suicidal Intention: No Homicidal Ideation: No Homicidal Plan: No Homicidal Intention: No Mental Status Exam Remarks Insight and judgment are likely chronically poor Discharge/Advance Care Plan Health Problems: (1) Other schizoaffective disorders (2) Cluster B personality traits Goals to promote your health * To prevent worsening of your condition and complications * To maintain your health at the optimal level Directions to meet your goals Take your medications as prescribed Follow your dietary instruction Follow activity as directed Keep your appointments as scheduled Take your immunizations and boosters as scheduled If your symptoms worsen call your PCP, if no PCP go to Urgent Care Center or Emergency Room For 24/ questions related to your inpatient stay or results of tests pending at discharge, please contact Dr. Terry Justin at Smoking is Dangerous to Your Health. Avoid second hand smoking Terry Justin MD Jul 29, 2017 12:16
[2017-07-29 18:17] VITALS: BP 119/79; PULSE 104; RESP 16; TEMP 97.9; O2SAT 95
[2017-07-30 05:09] VITALS: BP 102/72; PULSE 89; RESP 16; TEMP 98.1; O2SAT 95
[2017-07-30 05:43] VITALS: BP 102/72; PULSE 89; RESP 16; TEMP 98.1; O2SAT 95
[2017-07-30] MEDS: metFORMIN HCL 500 MG TAB PO SCH (08:53)
[2017-07-30] MEDS: PROPRANOLOL HCL 10 MG TAB PO SCH (08:53)
[2017-07-30] MEDS: DIVALPROEX SODIUM E.R. 500 MG TAB PO SCH (08:53)
[2017-07-30] MEDS: risperiDONE 1 MG TAB PO SCH (08:53)
[2017-07-30] MEDS: cloZAPine 25 MG TAB PO SCH (08:53)
[2017-07-30] MEDS: NICOTINE 21 MG/24 HR PATCH T-DERMAL SCH (08:54)
[2017-07-30] MEDS: BENZTROPINE MESYLATE 1 MG TAB PO SCH (08:54)
--- NOTE | 2017-07-30 09:27 | PD.TTN ---
Patient Problems 1. Discharge planning 2. Medication compliance 3. Knowledge deficit 4. Lack of coping skills Progress Toward Goals Provider Present: Dr. Altaf Tran, Dr. Christine Justin Provider Input: Dr. Justin's treatment team met to discuss patient's treatment plan, medication, and discharge plan. Patient is medication compliant, and is in need of placement. 07/30/2017: Patient will be discharged today. Nurse(s) Input: Patient's nurse reports patient is pleasant and cooperative this morning. 07/30/2017: N/A Psychiatric Counselors Present: Kristal Holman [facility] Psych Therapist Input: Patient presents easily agitated, cooperative but guarded. Refused placement when Lyndon from [facility] came to see patient. States "she is going home with her mother" 07/25/2017: Group Spec/RT/OT/CACERES Present: NICKI Jimenez Group Spec/RT/OT/CACERES Input: Patient attends selective groups. 07/30/2017: Pt has been attending the sheduled Group activities with good participation Discharge Plan Patient will be discharged today 07/30/2017 Arabella Yoon Jul 30, 2017 09:27
--- NOTE | 2017-07-30 11:37 | HHI.PYPN ---
Subjective Chief Complaint: Psychosis Remarks Discharge held yesterday as patient's mother could not be located and patient had no way of getting in to her home. Patient seen and examined with nurse. Chart reviewed. Case discussed with nursing staff. No behavioral issues overnight. Nurse notes that the patient is "the best I've ever seen her." Case discussed in treatment team. Counselor notes that the patient may go today to [facility] if she is willing. On my examination today, the patient reports that she has met with representatives from [facility] and is indeed agreeable to going there. Of her psychiatric condition, the patient says "I feel like I'm back to normal." She denies any suicidal or homicidal ideation, intent or plan and contracts for safety. I can elicit no mood or psychotic symptoms. She denies any audiovisual hallucinations. No delusional material. She appears euthymic. She denies side effects from medications. No physical complaints. Review of Systems Except as stated in HPI: all other systems reviewed are Neg Mental Status Examination Appearance: Appropriate Consciousness: Alert Orientation: x4 Motor Activity: Other (no abnormal motor movements noted) Speech: Unremarkable Language: Adequate Fund of Knowledge: Adequate Attention and Concentration: Adequate Memory: Unremarkable Mood: Appropriate Affect: Appropriate, Euthymic Thought Process & Associations: Intact Thought Content: Appropriate Hallucination Type: None Delusion Type: None Suicidal Ideation: No Suicidal Plan: No Suicidal Intention: No Homicidal Ideation: No Homicidal Plan: No Homicidal Intention: No Mental Status Exam Remarks Insight and judgment are chronically poor secondary to primary psychotic illness. Results Labs Labs reviewed. No new labs. Vitals/IOs Vital Signs Date Time Temp Pulse Resp B/P (MAP) Pulse Ox O2 Delivery O2 Flow Rate FiO2 07/30/17 05:09 98.1 89 16 102/72 (82) 95 Assessment & Plan Problem List: (1) Other schizoaffective disorders ICD Codes: F25.8 - Other schizoaffective disorders (2) Cluster B personality disorder ICD Codes: F60.9 - Personality disorder, unspecified Assessment & Plan Patient remains psychiatrically stable. She is tolerating her psychotropic medications well without side effects. Suicide and violence risk assessment are unchanged today and both suggest lower imminent risk from mental illness as defined under the Salas act. Patient will be discharged today to [facility] with mental health follow-up as arranged by counselor Justification for Cont. Inpt. Discharge today. Terry Justin MD Jul 30, 2017 11:37
== END 2017-07-30 14:30 | DRG 885 ==
LOC: NEDAMB 17:08 → NEDA 07-05 12:11 → H260 07-05 12:15 → H270 07-16 20:59 → H260 07-19 21:31
PROVIDERS: ADMIT Psychiatry & Neurology Psychiatry; ATTEND Psychiatry & Neurology Psychiatry
DX: F25.8 Other schizoaffective disorders (principal); G25.71 Drug induced akathisia; I10 Essential (primary) hypertension; E11.9 Type 2 diabetes mellitus without complications; D72.829 Elevated white blood cell count, unspecified; F60.89 Other specific personality disorders; R26.9 Unspecified abnormalities of gait and mobility; K11.7 Disturbances of salivary secretion; F17.210 Nicotine dependence, cigarettes, uncomplicated; Z79.84 Long term (current) use of oral hypoglycemic drugs
CPT/HCPCS: 80048; 80053; 80061; 80164; 80307; 81001; 83036; 85025; 85027; 96372; J1200; J2060; J3486